=== PATIENT | female | born 1960 | race Caucasian/White ===

== ENCOUNTER → 2017-10-06 17:07 | Outpatient (CLI) | payer BC, SELFPAY ==
--- NOTE | 2017-10-06 13:55 | FLU_PTH ---
PATIENT: NATIVIDAD CONDE LOC: [facility] U#:[id number] AGE/SX: 64/F ROOM: RE10/06/[address]: Dr. Edilia Metzger MD : 1960 BED: DIS: SPEC #: [id number] RECD: 10/06/17 17:04 STATUS: HOANG SUNDAR #: [id number] MERCEDES: 10/06/17 13:[address]: Edilia Metzger DEPT: CYTOLOGY RECD BY: Geoff Pantoja Tissues: A - Thyroid gland, NOS B - Thyroid gland, NOS Procedures: Pap Stain (control) Special Stain Group II Surgery Specimen Level IV Cell Block Cytospin Fluid Cytology Other HEADER OPERATION: Ultrasound-guided fine needle aspiration right thyroid PRE-OP DIAGNOSIS: Thyroid nodules TISSUE SUBMITTED: A - Fine needle aspiration right thyroid nodule fluid for cytology, B ? FNA right thyroid (4?slides) DIAGNOSIS CYTOLOGY A. Fine needle aspiration, right thyroid nodule (cytospin and cell block): Consistent with benign colloid nodule. B. Fine needle aspiration, right thyroid nodule (smears): Adequate for evaluation. Negative, consistent with colloid nodule. AM:veronique 10/11/17 CYTOLOGY STUDY Slides are reviewed. CYTOLOGY GROSS A - Received is 35 ml of cloudy yellow fluid labeled with the patient's name and and designated per the requisition as right thyroid. Submitted for cytology preparation including cell block. B - Received are four smears labeled with the patient's name and designated per the requisition as FNA right thyroid. Submitted for staining. / 10/10/17 TC:5 CPT: 03371, 87910, 46366
== END ==
PROVIDERS: Visit Provider Surgery
DX: E04.1 Nontoxic single thyroid nodule (principal)
CPT/HCPCS: 88108; 88161; 88305; 88313

== ENCOUNTER → 2021-03-05 09:50 | Outpatient (CLI) | payer OTHER, SELFPAY ==
--- NOTE | 2021-03-05 10:02 | NM_ITS ---
CLINICAL: 60-year-old female with history of hypercalcemia. 99m Tc SESTAMIBI DUAL PHASE PLANAR and SPECT PARATHYROID SCINTIGRAPHY COMPARISON: None available FINDINGS: Following the intravenous administration of 25.0 mCi of 99m Tc sestamibi, planar image acquisitions of the anterior neck at 15 minutes and approximately 3 hours post radiopharmaceutical provision and SPECT reconstructions obtained at 3 hours reveal: 1. Immediate static blood pool acquisitions demonstrate uniform distribution of the radiopharmaceutical in the visualized right-left thyroid colloid. 2. Delayed planar images depict symmetric washout of the radiopharmaceutical from the defined right-left thyroid beds without evidence of focal retention of the radiotracer readily identified. Emission computed tomographic reconstructions of the anterior neck reveal confirmation of the planar projection findings. NM/Parathyroid Image w/ SPECT IMPRESSION: 1. NEGATIVE 99m Tc SESTAMIBI PLANAR-SPECT PARATHYROID IMAGING DUAL PHASE EXAMINATION. 2. There is no definitive typical scintigraphic evidence of parathyroid adenoma on the current evaluation. Electronically Signed: Juan Pablo Arnold DO at 12:21 EDT Tel , Service support ,
== END ==
PROVIDERS: PCP Family Medicine
DX: E21.3 Hyperparathyroidism, unspecified (principal)
CPT/HCPCS: 78071; 78072; A9500

== ENCOUNTER 2024-03-06 10:34 | Emergency (ER) | payer BC, SELFPAY ==
[2024-03-06 10:35] VITALS: BP 235/79; PULSE 64; RESP 16; TEMP 36.2; O2SAT 100; BMI 28.3
--- NOTE | 2024-03-06 10:47 | EKG12_ITS ---
Test Reason : PALP Blood Pressure : / mmHG Vent. Rate : 064 BPM Atrial Rate : 064 BPM P-R Int : 180 ms QRS Dur : 090 ms QT Int : 412 ms P-R-T Axes : 057 050 059 degrees QTc Int : 425 ms Normal sinus rhythm Normal ECG Confirmed by NARENDRA SMALL, GERALD ([id number]), order editor ANUSHKA BRANCH ([id number]) on 03/07/2024 9:12:16 AM Referred By: Confirmed By:GERALD MACKEY MD
--- NOTE | 2024-03-06 10:47 | EX.ED.DYSGE1 ---
HPI History of Present Illness Chief Complaint: Dizziness Detail of Chief Complaint: Lightheadedness and hypertension Informant: patient Narrative Narrative: Patient presents to the emergency department complaint of feeling lightheaded. Patient also had some palpitations while at work. Patient states that she was seated at work when she started feeling a little lightheaded and lasted a few seconds and then she felt like maybe her heart was skipping beats. Patient then stood up to get something and again felt lightheaded. They checked her blood pressure at work and it was 230 systolic which is unusual for her. Last time she had a blood pressure check was in the office of her primary care physician about 6 months ago and it was 130s over 70s. Patient does not take blood pressure medications. She denies chest pain or shortness of breath. Denies recent illness. [facility] Medications ?Medication ?Instructions ?Recorded ?Last Taken ?Type cyanocobalamin (vitamin B-12) 1,500 mcg PO DAILY 05/04/17 Unknown History 2,000 mcg tablet loratadine 10 mg tablet (Claritin) 10 mg PO DAILY 05/04/17 Unknown History lorazepam 1 mg tablet (Ativan) 1 mg PO TID PRN anxiety #10 tabs 03/06/24 Unknown Rx Allergy/AdvReac Type Severity Reaction Status Date / Time No Known Allergies Allergy Verified 05/04/17 01:09 Social History Smoking Status: Former smoker ROS ROS ED Review of Systems ROS Unobtainable: other Constitutional Constitutional ED: Reports lethargy; Denies chills, fever(s), sweats or weight loss Eyes Eyes: Denies blurry vision, change in vision or diplopia ENT ENT ED: Denies rhinorrhea or sore throat Cardiovascular Cardiovascular: Reports palpitations; Denies chest pain, orthopnea or racing heartbeat Respiratory/Chest Respiratory/Chest: Denies cough, dyspnea, dyspnea on exertion, orthopnea or sputum Gastrointestinal Gastrointestinal: Denies abdominal pain, diarrhea, nausea or vomiting Genitourinary Genitourinary ED: Denies dysuria, hematuria or urinary frequency Musculoskeletal Musculoskeletal: Denies arthralgias, back pain, myalgias or neck pain Integumentary Denies abscess, Abrasions or rash Neurologic Neurologic: Reports other Details: Dizziness ; Denies headache(s) or weakness Psychiatric Psychiatric: Denies anxiety, depression or suicidal thoughts Endocrine Endocrinology: Denies polydipsia, polyphagia or polyuria Hematologic/Lymphatic Hematologic/Lymphatic: Denies easy bleeding, easy bruising or lymphadenopathy Allergic/Immunologic Allergic/Immunologic ED: Denies mouth swelling, tongue swelling or urticaria EXAM Physical Exam Const Vital Signs: 03/06/24 10:35 03/06/24 11:34 03/06/24 11:53 Temperature 97.2 F L Temperature Source Temporal Pulse Rate 64 78 Pulse Rate [Lying] 56 L Pulse Rate [Sitting (for 1 minute prior to obtaining)] 70 Pulse Rate [Standing (for 1 minute prior to obtaining)] 74 Respiratory Rate 16 20 H Blood Pressure 235/79 H 163/85 H Blood Pressure [Lying] 166/71 H Blood Pressure [Sitting (for 1 minute prior to obtaining)] 180/101 H Blood Pressure [Standing (for 1 minute prior to obtaining)] 199/102 H Blood Pressure Mean 131 111 Blood Pressure Mean [Lying] 102 Blood Pressure Mean [Sitting (for 1 minute prior to obtaining)] 127 Blood Pressure Mean [Standing (for 1 minute prior to obtaining)] 134 Pulse Ox 100 96 Oxygen Delivery Method Room Air Room Air 03/06/24 12:00 03/06/24 13:00 Temperature Temperature Source Pulse Rate 75 65 Pulse Rate [Lying] Pulse Rate [Sitting (for 1 minute prior to obtaining)] Pulse Rate [Standing (for 1 minute prior to obtaining)] Respiratory Rate 16 12 Blood Pressure 199/102 H 157/74 H Blood Pressure [Lying] Blood Pressure [Sitting (for 1 minute prior to obtaining)] Blood Pressure [Standing (for 1 minute prior to obtaining)] Blood Pressure Mean 134 101 Blood Pressure Mean [Lying] Blood Pressure Mean [Sitting (for 1 minute prior to obtaining)] Blood Pressure Mean [Standing (for 1 minute prior to obtaining)] Pulse Ox 96 96 Oxygen Delivery Method Room Air Room Air Positive well nourished and well developed General Appearance ED: well developed and NAD HEENT Reports TM's clear and moist mucous membranes normocephalic and atraumatic; Negative for trauma or tenderness Tympanic Membrane ED: Yes TM's clear Eyes PERRL and EOMs intact bilaterally General Eye ED: Negative for pale conjunctiva or scleral icterus Neck no lymphadenopathy, supple and no JVD General: Negative for tenderness Chest Wall inspection of chest normal and palpation of chest normal Chest: Negative for tenderness Resp normal respiratory effort and clear to auscultation bilaterally Effort and Inspection: Negative for respiratory distress or pain with movement Auscultation: Negative for rhonchi, wheezes or diminished lung sounds Cardio regular rate, regular rhythm, S1 normal heart sound, S2 normal heart sound and no murmurs Peripheral Pulses: pulses 2+ throughout GI normal to inspection, nondistended, normoactive bowel sounds, soft to palpation, non-tender, non-distended and no masses Back/Spine no CVA tenderness and no thoracic nor lumbar tenderness Extremity normal to inspection General Extremety ED: Negative for edema General Extremity: Negative for edema Neuro oriented x3, CN's II-XII intact bilaterally, no sensory deficits noted and gait normal Sensorium / Orientation: awake, alert, oriented to person, oriented to place and oriented to time Motor Exam: strength 5/5 throughout and strength abnormal Psych mental status grossly normal Skin no rashes or lesions noted and no wounds MDM MDM MDM Narrative Medical decision making narrative: Patient presents with some lightheadedness and elevated high blood pressure as well as some palpitations. Clinically she looks well. She is been under increased stress lately. IV line established. EKG obtained on arrival showed a sinus rhythm with rate of 64 bpm with no acute ST segment changes. CBC with differential count of 7.1 with hemoglobin 13.5 and platelet count of 291. Chemistries were unremarkable. Troponin normal at 7. Urinalysis normal. Initially did not give patient any thing for blood pressure to see if she would normalize on her own and she maintained in the 180s to 190s systolic. I did give her a milligram of Ativan and repeated blood pressure now 157/74. She is asymptomatic. Patient does not want to be on blood pressure medicine if she does not have to be. I will write her prescription for as needed Ativan as needed. Also recommended that she maintain a journal of her blood pressures daily and follow-up with her primary care physician within the week. Lab Data Attestation: I reviewed the patient's lab results. Labs: Laboratory Results - last 24 hr 03/06/24 03/06/24 10:53 11:02 WBC 7.1 RBC 4.53 Hgb 13.5 Hct 41.7 MCV 92.1 MCH 29.8 MCHC 32.4 RDW Std Deviation 44.0 H RDW Coeff of Ash 13.1 Plt Count 291 MPV 10.0 Immature Gran % (Auto) 0.300 Neut % (Auto) 66.4 Lymph % (Auto) 24.7 [place] % (Auto) 7.1 Eos % (Auto) 1.1 Baso % (Auto) 0.4 Absolute Neuts (auto) 4.7 Absolute Lymphs (auto) 1.75 Nucleated RBC % 0 Sodium 138 Potassium 3.9 Chloride 108 H Carbon Dioxide 25.0 Anion Gap 4 L BUN 15 Creatinine 0.68 Estim Creat Clear Calc 81.96 Est GFR (MDRD) Af Amer 112 Est GFR (MDRD) Non-Af 92 BUN/Creatinine Ratio 21.9 H Glucose 105 Calcium 8.7 Troponin I High Sens 7 Urine Color Yellow Urine Clarity Sl. Cloudy Urine pH 7.0 Ur Specific [place] 1.010 Urine Protein Negative Urine Glucose (UA) Normal Urine Ketones Negative Urine Occult Blood Negative Urine Nitrite Negative Urine Bilirubin Negative Urine Urobilinogen Normal Ur Leukocyte Esterase Negative Urine RBC 0 SEEN Urine WBC 0 SEEN Ur Squamous Epith Cells 0 SEEN Urine Bacteria 0 SEEN Urine Mucus 0 SEEN EKG Initial EKG: Attestation: I personally reviewed and interpreted this EKG as follows: Comments: Sinus rhythm with ventricular rate of 64 bpm with no acute ST segment changes Discharge Plan Triage Chief Complaint: Dizziness Other Complaint: Palpitations ED Provider: Jamin García Dx/Rx/DC Orders Clinical Impression: Hypertension, Palpitations, Dizziness Instructions: ED Anxiety Reaction, ED Dizziness, Uncertain Cause, ED Hypertension, To Be Confirmed, ED Palpitations Prescriptions: New lorazepam [Ativan] 1 mg tablet 1 mg PO TID PRN (Reason: anxiety) Qty: 10 0RF No Action loratadine [Claritin] 10 MG tablet 10 mg PO DAILY cyanocobalamin (vitamin B-12) 2,000 MCG tablet 1,500 mcg PO DAILY Primary Care Provider: Bryce Hernandez Referrals: Bryce Hernandez MD [Primary Care Provider] - 5-7 Days Print Language: Japanese Disposition Disposition: Home, Self Care
[2024-03-06 11:02] LABS: Absolute Lymphocyte Count 1.75 X10^3/uL (0.83-4.51); Absolute Neutrophil Count 4.7 X10^3/uL (2.0-7.7); Basophil# 0.03 X10^3/uL; Basophil% 0.4 % (0-1); Eosinophil# 0.08 X10^3/uL; Eosinophils% 1.1 % (0-5); Hematocrit 41.7 % (37-47); Hemoglobin 13.5 g/dL (12.0-15.0); Lymphocyte # 1.75 X10^3/ul (0.83-4.51); Lymphocyte % 24.7 % (19-41); Mean Corp Hgb Conc 32.4 g/dL (32-36); Mean Corpuscular Hgb 29.8 pg (27.0-32.0); Mean Corpuscular Volume 92.1 fL (81-99); Monocyte% 7.1 % (0-10); NRBC Flagged by Analyzer 0 % (0-5); Neutrophil % 66.4 % (47-70); Platelet Count 291 K/mm3 (150-450); RBC Distribution Width CV 13.1 % (11.6-14.6); Red Blood Count 4.53 M/mm3 (4.2-5.4); White Blood Count 7.1 K/mm3 (4.4-11.0)
[2024-03-06 11:06] LABS: Bacteria 0 SEEN /hpf (None Seen); Mucous, Urine 0 SEEN /hpf (<or=2+); Red Blood Cells-Urine 0 SEEN /hpf (0-5); Squamous Epithelial Cells - UA 0 SEEN /hpf (5-10); White Blood Cells 0 SEEN /hpf (0-5)
[2024-03-06 11:16] LABS: Color, Urine Yellow (Yellow); Glucose, Dipstick Normal (Normal); Ketone-Dipstick Negative (Negative); Leukocyte Esterase-Dipstick Negative /ul (Negative); Nitrite-Dipstick Negative (Negative); Occult Blood-Urine Negative /ul (Negative); Protein-Dipstick Negative (Negative); Urine Bilirubin Dipstick Negative (Negative); Urine Clarity Sl. Cloudy (Clear); Urine Urobilinogen Normal (Normal)
[2024-03-06 11:30] LABS: Anion Gap 4 (5-15); BUN 15 mg/dL (7-18); BUN/Creat Ratio 21.9 RATIO (10-20); Calcium,Total 8.7 mg/dL (8.5-10.1); Chloride 108 mmol/L (98-107); Creatinine, Serum 0.68 mg/dL (0.55-1.02); EST Glomerular Filtration Rate 92 mL/min (>60); Est Glom Filt Rate - Afr Amer 112 mL/min (>60); Estimated Creatinine Clearance 81.96 ml/min; Glucose 105 mg/dL (74-106); Potassium 3.9 mmol/L (3.5-5.1); Sodium Level 138 mmol/L (136-145); Troponin-I HS 7 pg/mL (3.0-54.0)
[2024-03-06 11:34] VITALS: BP 163/85; PULSE 78; RESP 20; O2SAT 96
[2024-03-06 11:53] VITALS: BP 166/71; BP 180/101; BP 199/102; PULSE 56; PULSE 70; PULSE 74
[2024-03-06 12:00] VITALS: BP 199/102; PULSE 75; RESP 16; O2SAT 96
[2024-03-06] MEDS: LORazepam 2 MG/ML Syringe 1 MG IV (12:49)
[2024-03-06 13:00] VITALS: BP 157/74; PULSE 65; RESP 12; O2SAT 96
[2024-03-06 13:44] VITALS: BP 154/96; PULSE 56; RESP 17; TEMP 36.9; O2SAT 97
== END 2024-03-06 13:47 | disposition home or self-care (01) ==
PROVIDERS: Emergency Provider Emergency Medicine; PCP Family Medicine; Visit Provider Emergency Medicine
DX: I10 Essential (primary) hypertension (principal); R42 Dizziness and giddiness; Z87.891 Personal history of nicotine dependence; R00.2 Palpitations; Z79.899 Other long term (current) drug therapy
CPT/HCPCS: 80048; 81001; 84484; 85025; 93005; 99285; A4216

== ENCOUNTER 2024-06-26 09:26 | Emergency (ER) | payer BC, SELFPAY ==
[2024-06-26 09:27] VITALS: BP 180/86; PULSE 87; RESP 16; TEMP 36.8; O2SAT 99; BMI 27.1
--- NOTE | 2024-06-26 10:10 | RAD_ITS ---
PROCEDURE: SHOULDER MIN 2 VIEWS REASON FOR EXAM: Pain. TECHNIQUE: Four view right shoulder series COMPARISON: Prior lower cervical surgery is partially visualized at the edge of imaging. [id number] degenerative changes of the visualized spine are seen. Moderate right acromioclavicular joint degenerative changes are noted. The right glenohumeral joint demonstrates minimal degenerative changes, without apparent joint narrowing. No acute fracture or dislocation is seen. Reading Location: [id number]
--- NOTE | 2024-06-26 10:10 | CT_ITS ---
PROCEDURE: SPINE CERVICAL WITHOUT CONTRAS REASON FOR EXAM: Right shoulder pain. Prior cervical fusion. TECHNIQUE: Cervical spine CT without contrast. COMPARISON: None. FINDINGS: Alignment: Straightening of the normal cervical lordosis. Vertebrae: No acute fracture Soft Tissues: Unremarkable C1-2: Normal alignment. Dens appears intact. C2-3: Unremarkable C3-4: Marked degree of disc space narrowing and spondylosis. Uncovertebral arthrosis worse on the right side with bilateral neural foraminal stenosis more prominent on the right side. C4-5: The patient is status post anterior fusion with screw and plate fixation device. There is evidence of disc space narrowing. Right neural foraminal stenosis due to uncovertebral arthrosis. C5-6: Status post anterior fusion with plate and screw fixation device. Moderate degree of right neural foraminal stenosis due to uncovertebral arthrosis. C6-7: Marked degree of disc space narrowing. Spondylosis. C7-T1: Unremarkable CT/Spine Cervical without Contras IMPRESSION: NO ACUTE CERVICAL FRACTURE. Multilevel degenerative changes as described. Prior anterior fusion at the C4-C5, C5-C6 levels. One or more dose reduction techniques were used (e.g., Automated exposure contr ol, adjustment of the mA and/or kV according to patient size, use of iterative reconstruction technique). Reading Location: [facility]
--- NOTE | 2024-06-26 10:13 | EX.ED.UPPERE ---
HPI History of Present Illness Chief Complaint: Upper Extremity Injury Narrative Narrative: 64-year-old female past medical history of previous cervical radiculopathy with plate and screws [place] neck [place] [address] Garry Trivedi, presents with a few weeks worth of right neck and right shoulder pain. She denies any fevers or chills, no recent trauma. She states this feels like her prior radicular pain, but she has not had problems since her surgery. She presents with pain from her right neck radiating into her right shoulder for the last few weeks. She has an appointment with her primary care provider on the , approximately 2 weeks from now, but she states that the pain is becoming more intense. She is experiencing numbness as well of her right shoulder. PFSH PFSH Home Medications ?Medication ?Instructions ?Recorded ?Last Taken ?Type cyanocobalamin (vitamin B-12) 1,500 mcg PO DAILY 05/04/17 Unknown History 2,000 mcg tablet loratadine 10 mg tablet (Claritin) 10 mg PO DAILY 05/04/17 Unknown History lorazepam 1 mg tablet (Ativan) 1 mg PO TID PRN anxiety #10 tabs 03/06/24 Unknown Rx oxycodone-acetaminophen 5 mg-325 1 tab PO Q6H PRN pain 3 days #12 06/26/24 Unknown Rx mg tablet (Percocet) tabs Allergy/AdvReac Type Severity Reaction Status Date / Time No Known Allergies Allergy Verified 05/04/17 01:09 Social History Smoking Status: Unknown if ever smoked ROS ROS ED ROS Narrative Review of systems positive for right neck and right shoulder pain and numbness. No fevers or chills, no nausea or vomiting, no recent trauma. No chest pain or shortness of breath. EXAM Physical Exam Narrative Exam Narrative: Afebrile. Vital signs noted. Nontoxic-appearing. Cardiovascular examination reveals a regular rate and rhythm. Lungs clear to auscultation bilaterally. Abdomen soft nontender with normoactive bowel sounds. No vertebral point tenderness or bony step-off of the cervical spine. Diffuse tenderness to palpation right shoulder. No crepitance. Able to raise arm from side. Const Vital Signs: 06/26/24 09:27 Temperature 98.3 F Temperature Source Temporal Pulse Rate 87 Respiratory Rate 16 Blood Pressure 180/86 H Blood Pressure Mean 117 Pulse Ox 99 Oxygen Delivery Method Room Air MDM MDM MDM Narrative Medical decision making narrative: Differential diagnosis includes but not limited to shoulder arthralgia versus fracture. I have low clinical suspicion for dislocation. Additionally, I think she may have more of a cervical radiculopathy although she has had fusion surgery from continued DJD of the cervical spine versus spinal stenosis. I have low suspicion clinically for fracture as she has had no trauma. Right shoulder x-ray interpreted by myself independently shows no evidence of dislocation or fracture. I reviewed the radiology report which confirms my independent interpretation. Additionally they obtained CT of the cervical spine and reviewed the radiology report. While there is no evidence of acute fracture, she does have postsurgical changes as well as continued DJD and disc space narrowing and spinal stenosis. At this point in time, she did not drive here so she was given 1 oxycodone tablet here and prescription written for Percocet 5 mg - 325 mg #12 for 3 days. She is to follow-up with her primary care provider, and she needs to follow-up with her orthopedic spine surgeon in [place], [place], Dr. Garry Trivedi. Disposition is discharged home in stable condition History & Record Review Discussion w/independent historian: Patient Discharge Plan Triage Chief Complaint: Upper Extremity Injury ED Provider: Omar Rapp Dx/Rx/DC Orders Clinical Impression: Cervical radiculopathy, Degenerative cervical spinal stenosis Instructions: ED Neck Pain Prescriptions: New oxycodone-acetaminophen [Percocet] 5-325 mg tablet 1 tab PO Q6H PRN (Reason: pain) 3 Days Qty: 12 0RF No Action loratadine [Claritin] 10 MG tablet 10 mg PO DAILY cyanocobalamin (vitamin B-12) 2,000 MCG tablet 1,500 mcg PO DAILY lorazepam [Ativan] 1 mg tablet 1 mg PO TID PRN (Reason: anxiety) Qty: 10 0RF Primary Care Provider: Bryce Hernandez Referrals: Bryce Hernandez MD [Primary Care Provider] - As soon as possible Activity Restrictions/Additional Instructions: Follow-up with your orthopedic surgeon, Dr. Garry Trivedi as soon as possible. Print Language: Lithuanian Disposition Disposition: Home, Self Care
[2024-06-26] MEDS: oxyCODONE 5 MG Tablet PO (11:49)
== END 2024-06-26 12:05 | disposition home or self-care (01) ==
PROVIDERS: Emergency Provider Emergency Medicine; PCP Family Medicine; Visit Provider Emergency Medicine
DX: M47.22 Other spondylosis with radiculopathy, cervical region (principal); M48.02 Spinal stenosis, cervical region
CPT/HCPCS: 72125; 73030; 99282

== ENCOUNTER 2025-02-05 08:14 | Emergency (ER) | payer BC, SELFPAY ==
[2025-02-05 08:17] VITALS: BP 171/83; PULSE 65; RESP 17; TEMP 36; O2SAT 98; BMI 28.0
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
[2025-02-05] MEDS: 0.9% Normal Saline (1000mL) 1,000 ML 999 ML IV (09:14)
[2025-02-05 09:15] LABS: Hematocrit 41.0 % (37-47); Hemoglobin 13.5 g/dL (12.0-15.0); Immature Granulocytes Count 0.030 X10^3/uL (0.0-0.0); Mean Corp Hgb Conc 32.9 g/dL (32-36); Mean Corpuscular Volume 92.6 fL (81-99); Mean Platelet Vol. 9.7 fl (6.2-12.0); NRBC Flagged by Analyzer 0 % (0-5); Platelet Count 292 K/mm3 (150-450); RBC Distribution Width CV 13.2 % (11.6-14.6); RBC Distribution Width SD 44.6 fl (35.1-43.9); Red Blood Count 4.43 M/mm3 (4.2-5.4); White Blood Count 5.8 K/mm3 (4.4-11.0)
--- NOTE | 2025-02-05 09:25 | CT_ITS ---
PROCEDURE: BRAIN/HEAD WITHOUT CONTRAST 02/05/2025 REASON FOR EXAM: TRAUMA TECHNIQUE: Procedure Code: CTBR Modality: CT Procedure: BRAIN/HEAD WITHOUT CONTRAST Coronal and Sagittal reconstruction series were provided. One or more dose reduction techniques were used (e.g., Automated exposure control, adjustment of the mA and/or kV according to patient size, use of iterative reconstruction technique. RADIATION DOSE SUMMARY: CTDlvol: 17.81 mGy DLP: 1209.28 mGycm COMPARISON: None. FINDINGS: Brain: Extensive low density in the deep cerebral white matter most likely represents advanced chronic small vessel ischemic disease. No acute territorial infarction. No intracranial hemorrhage. No mass-effect or midline shift. The craniocervical junction is unremarkable. The orbits are unremarkable. CSF Spaces: Mild generalized cerebral atrophy Sinuses/Mastoids: Clear at visualized levels Bones: No acute bony abnormalities. CT/Brain/Head without Contrast IMPRESSION: No acute intracranial abnormalities. Reading Location: [id number]
--- OUTSIDE RECORDS SUMMARY | 2025-02-05 09:25 | XMS RPT_ITS | CCD ---
Author Organization [facility] Care Team Providers Care Stunner Name Role Phone Tia Hernandez MD Primary Care Provider Tia Hernandez MD Primary Care Provider [place] BUSINESS SEGMENT MANAGER.Corina ESCOTO Unavailable Irvin BUSINESS SEGMENT MANAGER.Will ESCOTO Unavailable Mary, Tia Primary Care Unavailable Omar Rapp Attending Unavailable Elderbrock, Tia Primary Care Unavailable Jamin García Attending Unavailable [place] BUSINESS SEGMENT MANAGER.Corina ESCOTO Unavailable ELDERBROCK, TIA Referring Unavailable ELDERBROCK, TIA Primary Care Unavailable ELDERBROCK, TIA Referring Unavailable ELDERBROCK, TIA Primary Care Unavailable ELDERBROCK, TIA Referring Unavailable ELDERBROCK, TIA Primary Care Unavailable ELDERBROCK, TIA Referring Unavailable ELDERBROCK, TIA Primary Care Unavailable CHECO HALL Attending Unavailable ELDERBROCK, TIA Primary Care Unavailable RICARDO LUNA Attending Unavailable ELDERBROCK, TIA Primary Care Unavailable MAYBROCK, TIA Attending Unavailable MAYBROCK, TIA Primary Care Unavailable RICARDO LUNA Referring Unavailable ELDERBROCK, TIA Attending Unavailable ELDERBROCK, TIA Primary Care Unavailable Allergies Allergy Classification Reported Allergen(s) Allergy Type Date of Onset Reaction(s) Facility levothyroxine (1 source) levothyroxine Drug Allergy 8 Other: See Comments [facility] (20 sources) levothyroxine; Translations: [LEVOTHYROXINE] Drug Allergy 8 Other: See Comments [facility] Medications Current Medications Medication Drug Class(es) Dates Sig (Normalized) Sig (Original) calcium carbonate 1250 mg / cholecalciferol 200 unt oral tablet (20 sources) Vitamin D Start: 09-13-2021 End: 10-13-2021 take 1 tablet by mouth once daily vmjlygm-iglisamao-ovfoue n D3 500 mg-5 mcg (200 unit) per tablet Indications: Primary hyperparathyroidism (HCC) Take 1 tablet by mouth once daily. 30 tablet 5 09/13/2021 Active Start: 08-03-2021 End: 09-13-2021 take 1 tablet by mouth three times daily zecpcqi-sckpdwdft-jajppdx D3 500 mg-5 mc g (200 unit) per tablet Take 1 tablet by mouth three times daily. 60 tablet 0 08/03/2021 09/13/2021 Discontinued Comment on above: Take 1 tablet by fatuma th once daily. Take 1 tablet by fatuma th three times daily. iv contrast (will be provided with radiology test) (1 source) Start: 2022 End: 2022 inject 1 dose intravenously once, then inject 1 dose intravenously once iv contrast (will be provided with radiology test) Indications: Localized swelling, mass and lump, neck Inject 1 Each intravenously one time only for [address] Neck W IVCON No IV access, insert saline lock prior to the sedation, infusion, injection for imaging exam. Discontinue saline lock post exam. If Pt. has a central line or IVAD, may access for administration according to line specific nursing protocol. Once exam is complete flush line and de-access according to line specific nursing protocol in the CT contrast administration guidelines link. 1 Each 0 12/23/2022 12/23/2022 Active Comment on above: Inject 1 Each intrav enously one time only for [address] Neck W IVCON No IV access, insert saline lock prior to the sedation, infusion, injection for imaging exam. Discontinue saline lock post exam. If Pt. has a central line or IVAD, may access for administration according to line specific nursing protocol. Once exam is complete flush line and de-access according to line specific nursing protocol in the CT contrast administration guidelines link. levothyroxine sodium 0.075 mg oral tablet (20 sources) l-Thyroxine Start: 2023 End: 2024 take 1 tablet by mouth once daily for thyroid dysfunction levothyroxine (SYNTHROID) 75 mcg tablet Indications: Hypothyroidism, acquired Take 1 tablet by mouth once daily. Take on empty stomach. For Thyroid 30 tablet 11 07/08/2024 Active Start: 01-10-2023 take 1 tablet by fatuma th once daily for thyroid dysfunction levothyroxine (SYNTHROID) 75 mcg tablet Indications: Hypothyroidism, acquired Take 1 tablet by mouth once daily. Take on empty stomach. For Thyroid 30 tablet 5 01/10/2023 Active Comment on above: Take 1 tablet by fatuma th once daily. Take on empty stomach. For Thyroid lisinopril 10 mg oral tablet (10 sources) Angiotensin Converting Enzyme Inhibitor Start: End: take 1 tablet by mouth once daily lisinopril (ZESTRIL) 10 mg tablet Take 1 tablet by mouth once daily. 30 tablet 5 01/15/2025 Active 24 hr loratadine 10 mg / pseudoephedrine sulfate 240 mg extended release oral tablet (20 sources) alpha-Adrenergic Agonist Start: End: take 1 tablet by mouth once daily loratadine-pseudoephed rine ER (CLARITIN-D 24) 10-240 mg Tb24 Indications: Allergy, initial encounter Take 1 tablet by mouth once daily. 30 tablet 01/08/2024 Active Comment on above: Take 1 tablet by fatuma th once daily. omeprazole 20 mg delayed release oral capsule (20 sources) Proton Pump Inhibitor Start: take 2 capsules by mouth once daily before breakfast omeprazole (PRILOSEC) 20 mg capsule Indications: Gastroesophageal reflux disease without esophagitis Take 2 capsules by mouth daily before breakfast. 1/2 hr before meal. 60 capsule 2 01/15/2025 Active Start: 10-28-2020 End: 01-15-2025 take 1 capsule by mouth once daily before breakfast omeprazole (PRILOSEC) 20 mg capsule Indications: Gastroesophageal reflux disease without esophagitis Take 1 capsule by mouth daily before breakfast. 1/2 hr before meal. 30 capsule 11/15/2023 01/15/2025 Discontinued Comment on above: Take 1 capsule by mo uth daily before breakfast. 1/2 hr before meal. vitamin b12 2 mg extended release oral tablet (20 sources) Vitamin B12 Start: take 1 tablet by mouth once daily Cyanocobalamin (VITAMIN B-12) 2,000 mcg TbER Indications: Osteopenia Take 1 tablet by mouth once daily. 0 02/19/2016 Active Comment on above: Take 1 tablet by fatuma th once daily. Completed/Discontinued Medications Medication Drug Class(es) Dates Sig (Normalized) Sig (Original) acetaminophen 500 mg oral tablet (9 sources) Start: 08-03-2021 End: 03-11-2022 take 1 tablet by mouth every four hours as needed acetaminophen (TYLENOL) 500 mg tablet Take 1 tablet by mouth every 4 hours as needed for pain. 0 08/03/2021 03/11/2022 Discontinued Comment on above: Take 1 tablet by fatuma th every 4 hours as needed for pain. loratadine 10 mg oral tablet (1 source) End: 09-13-2021 take 10 mg by mouth once daily LORATADINE ORAL Take 10 mg by mouth once daily. 0 09/13/2021 Discontinued Comment on above: Take 10 mg by mouth once daily. triamcinolone acetonide 0.25 mg/ml topical cream (3 sources) Corticosteroid Start: 10-03-2021 End: 11-30-2021 triamcinolone (KENALOG) 0.025 % cream Indications: Dermatitis due to plants, including poison malinda, sumac, and oak Apply 1 application to affected area twice daily. 30 g 0 10/03/2021 11/30/2021 Discontinued Comment on above: Apply 1 application to affected area twice daily. Problems Active Problems Problem Classification Problem Date Documented Date Episodic/Chronic Complications of surgical procedures or medical care (2 sources) History of parathyroidectomy; Translations: [Postprocedural hypoparathyroidism] 01-09-2023 Chronic Esophageal disorders (20 sources) Gastroesophageal reflux disease without esophagitis; Translations: [Gastro-esophageal reflux disease without esophagitis] Onset: 07-21-2021 Chronic Essential hypertension (3 sources) Hypertensive disorder; Translations: [Essential (primary) hypertension] Onset: 03-18-2024 03-18-2024 Chronic Malaise and fatigue (1 source) Fatigue; Translations: [Other fatigue] 01-09-2023 Episodic Nutritional deficiencies (1 source) Vitamin D deficiency; Translations: [Vitamin D deficiency, unspecified] Chronic Osteoarthritis (4 sources) Osteoarthritis of joint of right wrist; Translations: [Primary osteoarthritis, right wrist] Onset: 09-09-2024 09-09-2024 Chronic Osteoporosis (20 sources) Osteoporosis; Translations: [Localized osteoporosis [[place]]] Onset: 02-16-2021 02-16-2021 Chronic Other bone disease and musculoskeletal deformities (4 sources) Progressive avascular necrosis of lunate; 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] 07-12-2024 Chronic Other bone disease and musculoskeletal deformities (3 sources) Avascular necrosis of bone; Translations: [Osteonecrosis, unspecified] 07-12-2024 Chronic Other bone disease and musculoskeletal deformities (1 source) Kienbock's disease of adults; Translations: [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] Onset: 07-23-2024 Chronic Other bone disease and musculoskeletal deformities (1 source) Osteonecrosis, unspecified; Translations: [Osteonecrosis (HCC)] Onset: 07-23-2024 Chronic Other circulatory disease (1 source) Elevated blood-pressure reading without diagnosis of hypertension; Translations: [Elevated blood-pressure reading, without diagnosis of hypertension] 07-11-2024 Episodic Other connective tissue disease (1 source) Cramp; Translations: [Cramp and spasm] Episodic Other connective tissue disease (1 source) Cramp in lower limb; Translations: [Cramp and spasm] Episodic Other connective tissue disease (1 source) Pain of right thigh; Translations: [Pain in right thigh] 06-09-2023 Episodic Other endocrine disorders (20 sources) Primary hyperparathyroidism; Translations: [Primary hyperparathyroidism] Onset: 07-21-2021 Chronic Other endocrine disorders (1 source) Hyperparathyroidism; Translations: [Hyperparathyroidism, unspecified] Chronic Other non-traumatic joint disorders (1 source) Pain in right hip joint; Translations: [Pain in right hip] 06-09-2023 Episodic Other non-traumatic joint disorders (5 sources) Pain of right wrist; Translations: [Pain in right wrist] 07-11-2024 Episodic Other nutritional; endocrine; and metabolic disorders (1 source) Weight gain; Translations: [Abnormal weight gain] 01-09-2023 Episodic Other skin disorders (5 sources) Finding of neck region; Translations: [Localized swelling, mass and lump, neck] 12-12-2022 Episodic Screening and history of mental health and substance abuse codes (20 sources) Tobacco use and exposure - finding; Translations: [Personal history of nicotine dependence] 04-09-2012 Episodic Spondylosis; intervertebral disc disorders; other back problems (20 sources) Cervical disc disorder; Translations: [Cervical disc disorder, unspecified, unspecified cervical region] 04-09-2012 Chronic Spondylosis; intervertebral disc disorders; other back problems (4 sources) Neck pain; Translations: [Cervicalgia] Onset: 07-09-2024 01-09-2023 Episodic Thyroid disorders (20 sources) Multinodular goiter; Translations: [Nontoxic multinodular goiter] Onset: 03-18-2024 05-10-2021 Chronic Past or Other Problems Problem Classification Problem Date Documented Da te Episodic/Chronic Allergic reactions (20 sources) Allergic condition; Translations: [Allergy, unspecified, initial encounter] Onset: 10-28-2020 Episodic Biliary tract disease (20 sources) Polyp of gallbladder; Translations: [Cholesterolosis of gallbladder] Onset: 10-03-2018 10-03-2018 Episodic Cardiac dysrhythmias (2 sources) Palpitations; Translations: [Palpitations] Onset: 03-18-2024 03-18-2024 Episodic Conditions associated with dizziness or vertigo (1 source) Dizziness and giddiness; Translations: [Dizziness and giddiness] Onset: 03-28-2024 Episodic Fracture of upper limb (20 sources) Fracture of base of fifth metacarpal; Translations: [Nondisplaced fracture of base of fifth metacarpal bone, right hand, subsequent encounter for fracture with routine healing] Onset: 07-21-2016 07-21-2016 Episodic Other bone disease and musculoskeletal deformities (18 sources) Osteopenia; Translations: [Other specified disorders of bone density and structure, unspecified site] Resolved: 02-16-2021 02-16-2021 Episodic Other circulatory disease (1 source) Elevated blood-pressure reading, without diagnosis of hypertension; Translations: [Elevated BP without diagnosis of hypertension] Onset: 07-11-2024 Episodic Other non-traumatic joint disorders (1 source) Pain in right wrist; Translations: [Right wrist pain] Onset: 07-11-2024 Episodic Other nutritional; endocrine; and metabolic disorders (18 sources) Obesity caused by energy imbalance; Translations: [Other obesity due to excess calories] Onset: 10-03-2018 Resolved: 07-21-2021 07-21-2021 Chronic Other screening for suspected conditions (not mental disorders or infectious disease) (20 sources) Mammography abnormal; Translations: [Other abnormal and inconclusive findings on diagnostic imaging of breast] Onset: 05-22-2012 05-22-2012 Episodic Unclassified (1 source) Patient encounter status 07-02-2024 Results Test Name Value Interpretation Reference Range Facility [facility] NATIVIDAD CONDE ([id number]) 1960 F Date Time Provider Department 10/22/24 [facility] HER[facility]DEZ [facility] During your visit today, we recorded the following information about you: Lorie Koehler MA 10/22/2024 12:53 PM Signed Office received FMLA forms from [email or web address] on pt. Pt has FMLA to care for her spouse Michael Conde. Once completed fax back to: [email or web address] ATTN: Lula Barrera [employer] KARISHMA Barba Mark D, MD 10/24/2024 4:46 PM Signed Forms done MD Rodo Moser Kathryn, MA 10/24/2024 4:56 PM Signed Forms completed and faxed Lorie Koehler MA Allergies As of Date: 10/22/2024 Noted Allergy Reaction LEVOTHYROXINE 09/18/2017 14 - Other: See Comments Comments: Bloating and Vuong Date Reviewed: 09/09/2024 Reviewed by: Checo Hall MD - Fully Assessed Reason for Visit: FMLA Paperwork [4600] Prescriptions as of 10/24/2024 - lisinopril (ZESTRIL) 10 mg tablet Take 1 tablet by mouth once daily. - levothyroxine (SYNTHROID) 75 mcg tablet Take 1 tablet by mouth once daily. Take on empty stomach. For Thyroid - loratadine-pseudoephedr ine ER (CLARITIN-D 24) 10-240 mg Tb24 Take 1 tablet by mouth once daily. - omeprazole (PRILOSEC) 20 mg capsule Take 1 capsule by mouth daily before breakfast. 1/2 hr before meal. - vdlsghl-cmxjjzsjc-arlul in D3 500 mg-5 mcg (200 unit) per tablet Take 1 tablet by mouth once daily. - Cyanocobalamin (VITAMIN B-12) 2,000 mcg TbER Take 1 tablet by mouth once daily. Meds Comments as of 03/11/2022: Nicholas prn Problem List As Of Date 10/22/2024 Noted Resolved History of smoking [Z87.891] Cervical disc disease [M50.90] Abnormal mammogram, unspecified [R92.8] 05/22/2012 Multinodular goiter [E04.2] Osteopenia [M85.80] 02/16/2021 Nondisplaced fracture of base of fifth metacarp*07/21/2016 Gallbladder polyp [K82.4] 10/03/2018 Class 1 obesity due to excess calories without *10/03/2018 07/21/2021 Allergies [T78.40XA] 10/28/2020 Localized osteoporosis without current patholog*02/16/2021 GERD (gastroesophageal reflux disease) [K21.9] 07/21/2021 Primary hyperparathyroidism (HCC) [E21.0] 07/21/2021 Hypothyroidism [E03.9] 03/18/2024 Encounter Status:Closed by LORIE KOELHER on 10/24/24 [facility] Aaron 09-09-2024 CNOV Office Visit (RADHA ) NATIVIDAD CONDE ([id number]) 1960 F Date Time Provider Department 09/09/24 9:15 AM CHECO HALL During your visit today, we recorded the following information about you: Blood pressure 138/76 Checo Hall MD 09/09/2024 2:07 PM Signed Checo Hall MD Department of Orthopaedics Orthopaedics [address] [facility] [address] Dept: [phone] Dept September 09, 2024 CHIEF COMPLAINT: New and Pain of the Right Wrist HPI Natividad is a 64-year-old female presenting with right wrist pain and swelling. Natividad reports that approximately 2 months ago, she experienced a popping sensation in her right wrist while performing repetitive tasks at work. This was followed by significant pain and swelling. She was provided with a brace by the workplace nurse, but it exacerbated the swelling, leading her to discontinue its use. She has a history of carpal tunnel surgery on the same wrist performed in the . She was evaluated by her primary care physician, Dr. Hernandez, on 08/08, who ordered an MRI in July. Natividad was informed that the MRI revealed a torn ligament and other unspecified issues. Since the initial injury, she reports persistent pain localized to the center and back of the wrist, as well as the inside. The pain intensifies by the end of the day, despite the use of aspirin and topical lidocaine for relief. She denies any recent trauma to the wrist. She also has a history of cervical fusion and inquires about the potential impact of arthritis in her shoulder on her wrist pain. She is currently on lisinopril for hypertension and denies any renal issues, diabetes, or blood glucose problems. She occasionally takes Aleve for pain management. 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 Limited range of motion in the right wrist compared to the left, with pain localized to the radial carpal joint. No evidence of acute injury or tendon damage. - Initiate topical Voltaren gel, apply up to four times daily to the affected area. - Provided a comfortable Velcro wrist brace to reduce load during activities. - Consider oral NSAIDs such as meloxicam or Lodeen if topical treatment is insufficient; monitor blood pressure due to potential side effects. - Discussed potential for corticosteroid injection if pain persists despite conservative measures. Will continue to monitor patient for Primary osteoarthritis of right wrist (primary encounter diagnosis) Slac (scapholunate advanced collapse) of wrist, right, patient to schedule visit as per follow up discussed. FOLLOW UP INSTRUCTIONS: As needed OBJECTIVE: Ms. Natividad Conde is a pleasant 64 year old in no apparent distress. Gen:BP 138/76 LMP 07/27/2009 nl development, non obese, no deformities ENT: Normocephalic, normal hearing, moist mucosa CV: Pulses:Radial= 2+ and symmetric, capillary refill < 2 secs, no peripheral edema/varicosities Skin: no rash, bruising or lesions. Good turgor. Psych: cooperative and appropriate, alert and oriented x 3, good mood and affect. Musculoskeletal: - Musculoskeletal: - Right Wrist: Limited extension to approximately 60 degrees; tenderness noted. Left wrist, 85 degrees of extension. Painful Bernabe's exam, no clunk. TTP at the central, dorsal RC joint. Mild tenderness with some min. Swelling over the ulnar fossa. Mild swelling, without too much pain at the thumb, CMC joint. Minimal crepitus and mild pain with Grind. NV exam intact. Previous carpal tunnel scar noted without complication. IMAGING: Labs - Basic labs: Normal renal function and no evidence of abnormal glucose levels Imaging - (July) MRI of the right wrist: - Torn scapholunate ligament - Degenerative changes in the triangular fibrocartilage - Mild to moderate arthritic changes - X-ray of the right wrist: - Arthritic changes with narrowed joint spaces and subchondral sclerosis - Evidence of chronic scapholunate ligament tear Supporting Subjective Information Below: Past Medical History: PAST MEDICAL HISTORY Diagnosis Date Arthritis in left hand Cervical disc disease History of smoking Multinodular goiter 04/14/2013 thyroiditis 04/2013 Osteopenia 05/15/2011 Past Surgical History: PAST SURGICAL HISTORY Procedure Laterality Date BIOPSY BREAST OPEN INCISIONAL 07/05/2012 left, Fibroadenoma BX BREAST PERC NEED W/GUID 05/31/2012 U/S needle core UOQ left breast, fibroadenoma and Phyllodes (more content not included)... Normal [facility]OVon 08-16-2024 CNOV Office Visit (FAMPWS ) NATIVIDAD CONDE ([id number]) 1960 F Date Time Provider Department 08/16/24 4:20 PM TIA HERNANDEZ [facility]AMPWS During your visit today, we recorded the following information about you: Pulse Respiration Blood pressure Weight 64/minute 16/minute 136/70 71.5 kg Tia Hernandez MD 08/16/2024 5:20 PM Signed Chief Complaint Patient presents with: F/U 1 month HPI Natividad Conde is a 64 year old female who presents here today for a 1 month follow up. Pt here today for a BP check. Had stomach bug last week. HTN - At previous visit pt was started on Lisinopril 10 mg once daily due to elevated BP. Pt has had multiple elevated readings over the past several years. No hx of being on medication in the past. Checks BP at work through the Nurse, last week 146/64. Denies any chest pain, sob, or dizziness. Started taking Vitamin D3 twice a week. Asking about results from CT scan and XR from [facility] ED visit. Wants to review those today. Past medical history, appointments, medications, allergies reviewed. 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 Cervical disc disease History of smoking Multinodular goiter 04/14/2013 thyroiditis 04/2013 Osteopenia 05/15/2011 Previous Surgical History PAST SURGICAL HISTORY Procedure Laterality Date BIOPSY BREAST OPEN INCISIONAL 07/05/2012 left, Fibroadenoma BX BREAST PERC NEED W/GUID 05/31/2012 U/S needle core UOQ left breast, fibroadenoma and Phyllodes tumor CERV SPINE FUSN,ANTER,BELOW C2 1996 DELIVERY ONLY X 2 , low transverse LAPAROSCOPY SURG CHOLECYSTECTOMY 10/15/2018 Cholecystectomy, lap NEUROPLASTY AND/TRANSPOS MEDIAN NRV CARPAL TUNNE Carpal tunnel decomp Right hand PAST SURGICAL HISTORY OF N/A 08/03/2021 Parathyroid removed TONSILLECTOMY PRIMARY/SECONDARY Tonsillectomy Family History FAMILY HISTORY Problem Relation Age of Onset Diabetes Mother Hypertension Mother DVT Mother Hypertension Father Alcohol/Drug Father alcohol No Known Problems Sister No Known Problems Brother No Known Problems Brother No Known Problems Brother Heart Maternal Grandmother hardening of the arteries Osteoporosis Maternal Grandmother shrunk with age Ischemic Heart Disease Maternal Grandfather 63 NM Hypertension Maternal Aunt Diabetes Maternal Aunt Coronary Artery Disease No Family History Thyroid No Family History Blood Disease No Family History Blood Clots No Family History Factor 5 Leiden No Family History Stroke No Family History Systemic Lupus Erythematosus No Family History Multiple Sclerosis No Family History Bipolar disorder No Family History Schizophrenia No Family History Alzheimer's Disease No Family History Dementia No Family History Parkinson?s Disease No Family History Aneurysm No Family History COPD No Family History Hyperlipidemia No Family History Patient Allergies ALLERGIES Allergen Reactions Levothyroxine Other: See Comments Bloating and Vuong Current Medications Current Outpatient Medications on File Prior to Visit Medication Sig lisinopril (ZESTRIL) 10 mg tablet Take 1 tablet by mouth once daily. levothyroxine (SYNTHROID) 75 mcg tablet Take 1 tablet by mouth once daily. Take on empty stomach. For Thyroid loratadine-pseudoephedr ine ER (CLARITIN-D 24) 10-240 mg Tb24 Take 1 tablet by mouth once daily. omeprazole (PRILOSEC) 20 mg capsule Take 1 capsule by mouth daily before breakfast. 1/2 hr before meal. xwmdayf-usezkuynm-velfi in D3 500 mg-5 mcg (200 unit) per tablet Take 1 tablet by mouth once daily. (Patient taking differently: Take 1 tablet by mouth as needed.) Cyanocobalamin (VITAMIN B-12) 2,000 mcg TbER Take 1 tablet by mouth once daily. No current facility-administered medications on file prior to visit. Social History Social History Tobacco Use Smoking status: Former Current packs/day: 0.00 Average packs/day: 0.7 packs/day for 20.0 years (14.0 ttl pk-yrs) Types: Cigarettes Start date: 1984 Quit date: 2004 Years since quittin.2 Smokeless tobacco: Never Vaping Use Vaping status: Never Used Substance Use Topics Alcohol use: Yes Comment: 6 beers on Monday during football Drug use: No EXAM: BP 136/70 Pulse 64 Resp 16 Wt 71.5 kg (157 lb 10.1 oz) LMP 07/27/2009 BMI 26.64 kg/m? General Appearance: Well appearing, alert, in no acute distress, well-hydrated, well nourished.. Lungs: Lungs clear to auscultation. No wheezing, rhonchi, rales.. Heart: RRR without murmur, gallop, or rubs. No ectopy. Health Maintenance List HIV Screening Never done Cervical Cancer Screening Never done Shingrix Vaccine(1 of 2) Never done Pneumococcal Vaccine: 50+(1 of 1 - PCV) Never done Mammogram Screening due on 05/24/2017 Colorectal Cancer Screening due on 11/02/2021 (more content not included)... 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 RESULT: LIGAMENTS Triangular fibrocartilage: Intact with some degenerative changes at the ulnar attachments. Scapholunate ligament: Tear dorsally with some rotation of the scaphoid and some early proximal capitate migration and some early dorsal tilting of the lunate. Lunotriquetral ligament: Intact. TENDONS Flexor tendons and carpal tunnel: Intact tendons. No significant tenosynovitis. Median nerve is within normal limits at the carpal tunnel. Extensor tendons: Intact tendons. Mild tendinosis and tenosynovitis of the extensor carpi ulnaris at the ulnar styloid with some adjacent bony reactive changes with small subcortical cysts and edema of the ulnar styloid. BONES AND JOINTS Bones and bone marrow: No fractures or suspicious marrow replacing lesions. No osteonecrosis in the lunate. Reactive edema and cystic changes in the distal ulna as well as reactive degenerative cysts and edema throughout the carpal bones as described. Joints: Proximal capitate migration with severe osteoarthritis at the articulation with the lunate and scaphoid, with some early bony remodeling and subchondral cystic changes. There is also moderate to severe triscaphe and first CMC osteoarthritis. Mild to moderate radio scaphoid osteoarthritis. Moderate osteoarthritis at the distal radioulnar joint. Scattered subchondral degenerative changes throughout the carpal bones and distal ulna. Moderate effusion of the distal radioulnar joint in the first CMC joint.. Volar ganglion at the radiocarpal joint which is mildly loculated and deep to the flexor tendons, measuring 1.3 x 0.6 x 1.2 cm in conglomerate. There is also anterior neck which wraps around the radial aspect of the joint more dorsally. OTHER Other: No other significant findings. Localizer images: No significant additional findings. IMPRESSION: Moderate to severe osteoarthritis, as detailed. Dorsal scapholunate ligament tear with early developing scapholunate advanced collapse. Mild tendinosis and tenosynovitis of the extensor carpi ulnaris at the ulnar styloid, with reactive bony edema and cyst at the ulnar styloid. No osteonecrosis. Small deep loculated volar radiocarpal ganglion cyst. [employer] Advisor: [facility] Transcribe Date/Time: Jul 24 2024 2:40P Dictated by : SARAH ALMARAZ MD This examination was interpreted and the report reviewed and electronically signed by: SARAH ALMARAZ MD on Jul 24 2024 3:42PM EST [id number] Normal [facility] CNCOon 07-15-2024 CNCO Letter Text Normal [facility] CBC panel Auto (Bld)on 07-11 Erythrocyte distribution width (RBC) [Ratio] 12.9 % 11.5 - 15.0 % [facility] Hematocrit (Bld) [Volume fraction] 42.4 % 36.0 - 46.0 % [facility] Hemoglobin (Bld) [Mass/Vol] 13.7 g/dL 11.5 - 15.5 g/dL [facility] Interpretation and review of laboratory results Normal [facility] MCH (RBC) [Entitic mass] 29.5 pg 26.0 - 34.0 pg [facility] MCHC (RBC) [Mass/Vol] 32.3 g/dL 30.5 - 36.0 g/dL [facility] MCV (RBC) [Entitic vol] 91.4 fL 80.0 - 100.0 fL [facility] Nucleated RBC (Bld) [#/Vol] NINF [facility] Platelet mean volume (Bld) [Entitic vol] 10.6 fL 9.0 - 12.7 fL [facility] Platelets (Bld) [#/Vol] 329 10*3/uL [facility] RBC (Bld) [#/Vol] 4.64 10*6/uL 3.90 - 5.2 0 m/uL [facility] WBC (Bld) [#/Vol] 6.33 10*3/uL [facility] Erythrocyte distribution width (RBC) [Ratio] 12.9 % Normal 11.5-15.0 [facility] Comment on above: Order Comment: Марияi morgan Type: BLOOD SPECIMENOrdering Facility: [facility] Address: [address] [place] [address] Performed By: #### 5 8410-2 ####[facility] [id number] [address] [place] Hematocrit (Bld) [Volume fraction] 42.4 % Normal 36.0-46.0 [facility] Comment on above: Order Comment: Gloria mora Type: BLOOD SPECIMENOrdering Facility: [facility] Address: [address] [place] [address] Performed By: #### 5 8410-2 ####[facility] [id number] [place] [address] [place] Hemoglobin (Bld) [Mass/Vol] 13.7 g/dL Normal 11.5-15.5 [facility] Comment on above: Order Comment: Марияi morgan Type: BLOOD SPECIMENOrdering Facility: [facility] Address: [address] [place] [address] Performed By: #### 5 8410-2 ####[facility] [id number] [place] [address] [place] MCH (RBC) [Entitic mass] 29.5 pg Normal 26.0-34.0 [facility] Comment on above: Order Comment: Speci men Type: BLOOD SPECIMENOrdering Facility: [facility] Address: [address] [place] [address] Performed By: #### 5 8410-2 ####[facility] [id number] [place] [address] [place] MCHC (RBC) [Mass/Vol] 32.3 g/dL Normal 30.5-36.0 [facility] Comment on above: Order Comment: Speci men Type: BLOOD SPECIMENOrdering Facility: [facility] Address: [address] [place] [address] Performed By: #### 5 8410-2 ####[facility] [id number] [place] [address] [place] MCV (RBC) [Entitic vol] 91.4 fL Normal 80.0-100.0 [facility] Comment on above: Order Comment: Speci men Type: BLOOD SPECIMENOrdering Facility: [facility] Address: [address] [place] [address] Performed By: #### 5 8410-2 ####[facility] [id number] [place] [address] [place] Nucleated RBC (Bld) [#/Vol] 10*3/uL Normal <0.01 [facility] Comment on above: Order Comment: Speci men Type: BLOOD SPECIMENOrdering Facility: [facility] Address: [address] [place], [place] [address] Performed By: #### 5 8410-2 ####[facility] [id number] [place] [address] [place] Platelet mean volume (Bld) [Entitic vol] 10.6 fL Normal 9.0-12.7 [facility] Comment on above: Order Comment: Speci men Type: BLOOD SPECIMENOrdering Facility: [facility] Address: [address] [place] [address] Performed By: #### 5 8410-2 ####[facility] GARY BARNESNCLIA [id number] [place] [address] [place] Platelets (Bld) [#/Vol] 329 10*3/uL Normal 150-400 [facility] Comment on above: Order Comment: Speci men Type: BLOOD SPECIMENOrdering Facility: [facility] Address: [address] [place] [address] Performed By: #### 5 8410-2 ####[facility]ronNCLIA [id number] [place] [address] [place] RBC (Bld) [#/Vol] 4.64 10*6/uL Normal 3.90-5.20 [facility] Comment on above: Order Comment: Speci men Type: BLOOD SPECIMENOrdering Facility: [facility] Address: [address] [place] [address] Performed By: #### 5 8410-2 ####[facility] [id number] [place] [address] [place] WBC (Bld) [#/Vol] 6.33 10*3/uL Normal 3.70-11.00 [facility] Comment on above: Order Comment: Speci men Type: BLOOD SPECIMENOrdering Facility: [facility] Address: [address] [place] [address] Performed By: #### 5 8410-2 ####[facility]CL[facility] [id number] [address] [place] CNOVon 07-11-2024 CNOV Office Visit (FAMPWS ) NATIVIDAD CONDE ([id number]) 1960 F Date Time Provider Department 07/11/24 1:20 PM TIA HERNANDEZ During your visit today, we recorded the following information about you: Pulse Respiration Blood pressure Weight 80/minute 16/minute 170/100 70.7 kg Height 1.638 m Tia Hernandez MD 07/11/2024 2:22 PM Signed Chief Complaint Patient presents with: Physical HPI Natividad Conde is a 64 year old female who presents here today for a Wellness visit. Pt here today for a routine wellness visit. Working FT, caring for daughter and . Denies any stomach, bowel, or urinary issues. Sinuses: Recurrent issues with sinuses. Does take Claritin D 24 hour. Has not been taking the Claritin due to her BP being elevated. Denies any chest pain and SOB. 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 Her BP has been elevated lately, BP at work when checked by nurse was 180/86 and when she was in the ER last week her BP was 180/84. Admits to having increased stress. Never been dx with HTN or been treated for HTN in past. Eats fairly well and stays active with working FT and caring for family members. Thyroid: On current regimen of Synthroid 75 mcg once daily. Denies any missed dosages. Pain: Reports pain in different joints that she would like to have evaluated. She went to [facility] ER last week for right shoulder pain had XR of shoulder which showed arthritis and CT neck which showed the spinal stenosis. Has been having right wrist pain and swelling x 1 week. Has used topical pain relievers, Aleve prn and tried compression. No heat or ice used. Past medical history, appointments, medications, allergies reviewed. 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 Cervical disc disease History of smoking Multinodular goiter 04/14/2013 thyroiditis 04/2013 Osteopenia 05/15/2011 Previous Surgical History PAST SURGICAL HISTORY Procedure Laterality Date BIOPSY BREAST OPEN INCISIONAL 07/05/2012 left, Fibroadenoma BX BREAST PERC NEED W/GUID 05/31/2012 U/S needle core UOQ left breast, fibroadenoma and Phyllodes tumor CERV SPINE FUSN,ANTER,BELOW C2 1996 DELIVERY ONLY X 2 , low transverse LAPAROSCOPY SURG CHOLECYSTECTOMY 10/15/2018 Cholecystectomy, lap NEUROPLASTY AND/TRANSPOS MEDIAN NRV CARPAL TUNNE Carpal tunnel decomp Right hand PAST SURGICAL HISTORY OF N/A 08/03/2021 Parathyroid removed TONSILLECTOMY PRIMARY/SECONDARY Tonsillectomy Family History FAMILY HISTORY Problem Relation Age of Onset Diabetes Mother Hypertension Mother DVT Mother Hypertension Father Alcohol/Drug Father alcohol No Known Problems Sister No Known Problems Brother No Known Problems Brother No Known Problems Brother Heart Maternal Grandmother hardening of the arteries Osteoporosis Maternal Grandmother shrunk with age Ischemic Heart Disease Maternal Grandfather 63 NM Hypertension Maternal Aunt Diabetes Maternal Aunt Coronary Artery Disease No Family History Thyroid No Family History Blood Disease No Family History Blood Clots No Family History Factor 5 Leiden No Family History Stroke No Family History Systemic Lupus Erythematosus No Family History Multiple Sclerosis No Family History Bipolar disorder No Family History Schizophrenia No Family History Alzheimer's Disease No Family History Dementia No Family History Parkinson?s Disease No Family History Aneurysm No Family History COPD No Family History Hyperlipidemia No Family History Patient Allergies ALLERGIES Allergen Reactions Levothyroxine Other: See Comments Bloating and Vuong Current Medications Current Outpatient Medications on File Prior to Visit Medication Sig levothyroxine (SYNTHROID) 75 mcg tablet Take 1 tablet by mouth once daily. Take on empty stomach. For Thyroid loratadine-pseudoephedr ine ER (CLARITIN-D 24) 10-240 mg Tb24 Take 1 tablet by mouth once daily. (Patient taking differently: Take 1 tablet by mouth once daily as needed.) omeprazole (PRILOSEC) 20 mg capsule Take 1 capsule by mouth daily before breakfast. 1/2 hr before meal. wjrmnkp-tgsubueic-hnebc in D3 500 mg-5 mcg (200 unit) per tablet Take 1 tablet by mouth once daily. (Patient taking differently: Take 1 tablet by mouth as needed.) Cyanocobalamin (VITAMIN B-12) 2,000 mcg TbER Take 1 tablet by mouth once daily. (Patient taking differently: Take 1 tablet by mouth once daily. 2500 mcg) No current facility-administered medications on file prior to visit. Social History Social History Tobacco Use Smoking status: Former Current packs/day: 0.00 Average packs/day: 0.7 packs/day for 20.0 years (14.0 ttl pk-yrs) Types: Cigarettes Start date: 1984 Quit date: 2004 (more content not included)... Normal [facility] metabolic 2000 panelOrdered By: Jessica Anderson on 07-11-2024 Albumin [Mass/Vol] 4.4 g/dL 3.9 - 4.9 g/dL [facility] ALP [Catalytic activity/Vol] 66 U/L 34 - 123 U/L [facility] ALT [Catalytic activity/Vol] 21 U/L 7 - 38 U/L [facility] Anion gap [Moles/Vol] 13 mmol/L 8 - 15 mmol/L [facility] AST [Catalytic activity/Vol] 18 U/L 13 - 35 U/L [facility] Bilirubin [Mass/Vol] 0.3 mg/dL 0.2 - 1.3 mg/dL [facility] Calcium [Mass/Vol] 9.5 mg/dL 8.5 - 10. 2 mg/dL [facility] Chloride [Moles/Vol] 103 mmol/L 98 - 107 mmol/L [facility] CO2 [Moles/Vol] 23 mmol/L 22 - 30 mmol/L [facility] Creatinine [Mass/Vol] 0.63 mg/dL 0.58 - 0.96 mg/dL [facility] GFR/1.73 sq M.predicted among non-blacks MDRD (S/P/Bld) [Vol rate/Area] 100 mL/min/{1.73_m2} - PINF [facility] Comment on above: Estimated Glomerular Filtration Rate (eGFR) is calculated using the 2020 CKD-EPI creatinine equation. This equation utilizes serum creatinine, sex, and age as parameters. The creatinine assay has traceable calibration to isotope dilution-mass spectrometry. Refer to KDIGO guidelines for clinical interpretation. In patients with unstable renal function, e.g. those with acute kidney injury, the eGFR may not accurately reflect actual GFR. Glucose [Mass/Vol] 99 mg/dL 74 - 99 mg/dL [facility] Comment on above: The [place] Diab[employer] s Association (ADA) provides guidance for cutoff values for fasting glucose and random glucose. The ADA defines fasting as no caloric intake for at least 8 hours. Fasting plasma glucose results between 100 to 125 mg/dL indicate increased risk for diabetes (prediabetes). Fasting plasma glucose results greater than or equal to 126 mg/dL meet the criteria for diagnosis of diabetes. In the absence of unequivocal hyperglycemia, results should be confirmed by repeat testing. In a patient with classic symptoms of hyperglycemia or hyperglycemic crisis, random plasma glucose results greater than or equal to 200 mg/dL meet the criteria for diagnosis of diabetes. Reference: Standards of Medical Care in Diabetes 2016, [place] Diabetes Association. Diabetes Care. 2016.39(Suppl 1). Interpretation and review of laboratory results Normal [facility] Potassium [Moles/Vol] 4.2 mmol/L 3.7 - 5.1 mmol/L [facility] Protein [Mass/Vol] 7.3 g/dL 6.3 - 8.0 g/dL [facility] Sodium [Moles/Vol] 139 mmol/L 136 - 144 mmol/L [facility] Urea nitrogen [Mass/Vol] 14 mg/dL 7 - 21 mg/dL [facility] Comprehensive metabolic 2000 panelon 07-11-2024 Albumin [Mass/Vol] 4.4 g/dL Normal 3.9-4.9 [facility] Comment on above: Order Comment: Gloria mora Type: BLOOD SPECIMENOrdering Facility: [facility] Address: [address] [place] [address] Performed By: #### 3 0167 ####[facility]ITALCLIA [id number] [address] [place]#### [address]-7 ####[facility] [id number] [place] [address] [place] ALP [Catalytic activity/Vol] 66 U/L Normal 34-123 [facility] Comment on above: Order Comment: Gloria mora Type: BLOOD SPECIMENOrdering Facility: [facility] Address: [address] [place] [address] Performed By: #### 3 016- 3024-7 ####[facility] LABORATORYCLIA [id number] [address] [place]#### [address]-6 ####[facility] MILLTOWNCLIA [id number] [place] [address] [place] ALT [Catalytic activity/Vol] 21 U/L Normal 7-38 [facility] Comment on above: Order Comment: Speci men Type: BLOOD SPECIMENOrdering Facility: [facility] Address: [address] [place] [address] Performed By: #### 3 016-, 7 ####[facility] LABORATORYCLIA [id number] [address] [place]#### 41485-3 ####[facility] MILLWNCLIA [id number] [place] [address] [place] Anion gap [Moles/Vol] 13 mmol/L Normal 8-15 [facility] Comment on above: Order Comment: Speci men Type: BLOOD SPECIMENOrdering Facility: [facility] Address: [address] [place] [address] Performed By: #### 3 016-, 7 ####[facility] LABORATORYCLIA [id number] [address] [place]#### 83233-6 ####[facility] MILLTOWNCLIA [id number] [place] [address] [place] AST [Catalytic activity/Vol] 18 U/L Normal 13-35 [facility] Comment on above: Order Comment: Speci men Type: BLOOD SPECIMENOrdering Facility: [facility] Address: [facility] [place] [address] Performed By: #### 3 016-, 7 ####[facility]ORATORYCLIA [id number] [address] [place]#### 28036-8 ####[facility] MILLTOWNCLIA [id number] [place] [address] [place] Bilirubin [Mass/Vol] 0.3 mg/dL Normal 0.2-1.3 [facility] Comment on above: Order Comment: Speci men Type: BLOOD SPECIMENOrdering Facility: [facility] Address: [address] [place] [address] Performed By: #### 3 016-3, 7 ####[facility]ORATORYCLIA [id number] [place] [address] [place]#### 04323-0 ####[facility] MILLTOWNCLIA [id number] [place] [address] [place] Calcium [Mass/Vol] 9.5 mg/dL Normal 8.5-10.2 [facility] Comment on above: Order Comment: Speci men Type: BLOOD SPECIMENOrdering Facility: [facility] Address: [address] [place] [address] Performed By: #### 3 016-, 3023-11 ####[facility]ORATORYCLIA [id number] [place] [address] [place]#### 83462-7 ####[facility] MILLTOWNCLIA [id number] [place] [address] [place] Chloride [Moles/Vol] 103 mmol/L Normal 98-107 [facility] Comment on above: Order Comment: Speci men Type: BLOOD SPECIMENOrdering Facility: [facility] Address: [address] [place] [address] Performed By: #### 3 016-, 7 ####[facility]ORATORYCLIA [id number] [place] [address] [place]#### 57478-6 ####[facility] GARY MILLTOWNCLIA [id number] [place] [address] [place] CO2 [Moles/Vol] 23 mmol/L Normal 22-30 [facility] Comment on above: Order Comment: Speci men Type: BLOOD SPECIMENOrdering Facility: [facility] Address: [address] [place] [address] Performed By: #### 3 016-3, 7 ####[facility] LABORATORYCLIA [id number] [address]#### 13281-2 ####[facility] HOSPITALLIA [id number] [address] [place] Creatinine [Mass/Vol] 0.63 mg/dL Normal 0.58-0.96 [facility] Comment on above: Order Comment: Speci men Type: BLOOD SPECIMENOrdering Facility: [facility] Address: [address] [place] [address] Performed By: #### 3 016-3, 7 ####[facility]ITALCLIA [id number] [address]#### 08469-4 ####[facility] [id number] [address] Creatinine and Glomerular filtration rate.predicted panel (S/P/Bld) 100 mL/min/1.73m??? Normal >=60 [facility] Comment on above: Order Comment: Speci men Type: BLOOD SPECIMENOrdering Facility: [facility] Address: [address] [place] [address] Result Comment: Olivia mated Glomerular Filtration Rate (eGFR) is calculated using the 2020 CKD-EPI creatinine equation. This equation utilizes serum creatinine, sex, and age as parameters. The creatinine assay has traceable calibration to isotope dilution-mass spectrometry. Refer to KDIGO guidelines for clinical interpretation. In patients with unstable renal function, e.g. those with acute kidney injury, the eGFR may not accurately reflect actual GFR. Performed By: #### 3 016-3, 7 ####[facility] LABORATORYCLIA [id number] [address]#### 37036-0 ####[facility]OSPITALLIA [id number] [place] [address] [place] Glucose [Mass/Vol] 99 mg/dL Normal 74-99 [facility] Comment on above: Order Comment: Gloria mora Type: BLOOD SPECIMENOrdering Facility: [facility] Address: [address] [place] [address] Result Comment: The [place] Diabetes Association (ADA) provides guidance for cutoff values for fasting glucose and random glucose. The ADA defines fasting as no caloric intake for at least 8 hours. Fasting plasma glucose results between 100 to 125 mg/dL indicate increased risk for diabetes (prediabetes). Fasting plasma glucose results greater than or equal to 126 mg/dL meet the criteria for diagnosis of diabetes. In the absence of unequivocal hyperglycemia, results should be confirmed by repeat testing. In a patient with classic symptoms of hyperglycemia or hyperglycemic crisis, random plasma glucose results greater than or equal to 200 mg/dL meet the criteria for diagnosis of diabetes. Reference: Standards of Medical Care in Diabetes 2016, [place] Diabetes Association. Diabetes Care. 2016.39(Suppl 1). Performed By: #### 3 016-3, 3024-7 ####[facility] LABORATORYCLIA [id number] [place] [address] [place]#### 76319-2 ####[facility] [id number] [place] [address] [place] Potassium [Moles/Vol] 4.2 mmol/L Normal 3.7-5.1 [facility] Comment on above: Order Comment: Марияi men Type: BLOOD SPECIMENOrdering Facility: [facility] Address: [address] [place] [address] Performed By: #### 3 016-3, 3024-7 ####[facility] LABORATORYCLIA [id number] [place] [address] [place]#### 93410-8 ####[facility]ATIONNCLIA [id number] [place] [address] [place] Protein [Mass/Vol] 7.3 g/dL Normal 6.3-8.0 [facility] Comment on above: Order Comment: Speci men Type: BLOOD SPECIMENOrdering Facility: [facility] Address: [address] [place] [address] Performed By: #### 3 016-3, 7 ####[facility] LABORATORYCLIA [id number] [address]#### 52124-9 ####[facility] GARY MILLTOWNCLIA [id number] [place] [address] [place] Sodium [Moles/Vol] 139 mmol/L Normal 136-144 [facility] Comment on above: Order Comment: Speci men Type: BLOOD SPECIMENOrdering Facility: [facility] Address: [address] [place] [address] Performed By: #### 3 016-, 3023-11 ####[facility] LABORATORYCLIA [id number] [address]#### 09753-9 ####[facility] MILLTOWNCLIA [id number] [address] [place] Urea nitrogen [Mass/Vol] 14 mg/dL Normal 7-21 [facility] Comment on above: Order Comment: Speci men Type: BLOOD SPECIMENOrdering Facility: [facility] Address: [address] [place] [address] Performed By: #### 3 016-, 7 ####[facility]ORATORYCLIA [id number] [address] [place]#### 13723-5 ####[facility] G[facility] MILLTOWNCLIA [id number] [place] [address] [place] T4 Free SerPl-mCncon 025 Free T4 [Mass/Vol] 1.6 ng/dL Normal 0.9-1.7 [facility] Comment on above: Order Comment: Speci men Type: BLOOD SPECIMENOrdering Facility: [facility] Address: [address] [place] [address] Performed By: #### 3 016-3, 3024-7 ####[facility]ITAL[facility] [id number] [address]#### 890[address]-7 ####[facility] [id number] [address] OF [place] TSH SerPl-aCncon 07-11-2024 TSH Qn 1.250 m[IU]/L Normal 0.270-4.200 [facility] Comment on above: Order Comment: Speci men Type: BLOOD SPECIMENOrdering Facility: [facility] Address: [address] [place] [address] Performed By: #### 3 016-3, 3024-7 ####[facility] LABORATORYCLIA [id number] [address]#### [address]85[address]-1 ####[facility] [id number] [address] XR WRIST 3V PA/LAT/OBL RTon 07-11-2024 XR WRIST 3V PA/LAT/OBL RT * * *Final Report* * * DATE OF EXAM: Jul 11 2024 2:16PM WOX 5271 - XR WRIST 3V PA/LAT/OBL RT / PROCEDURE REASON: Right wrist pain * * * * Physician Interpretation * * * * EXAM: XR WRIST 3V PA/LAT/OBL RT PATIENT HISTORY: Right wrist pain TECHNIQUE: PA, lateral, oblique radiograph of the right wrist. COMPARISON: Radiograph 07/06/2016 FINDINGS: Borderline negative ulnar variance. Increase sclerosis of the lunate with height loss compared to radiograph 07/06/2016. Suspected rotation of the scaphoid. 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 Additional areas of subchondral sclerosis involving the carpal bones. Degenerative change of the first carpometacarpal joint. Subchondral cyst in the distal ulna. No acute fracture. 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 Further imaging characterization with nonemergent right wrist MRI may be pursued. ACTIONABLE RESULT: FOLLOW-UP Acuity: Actionable Findings: Musculoskeletal/Rheumat ologic System Routing Code: MSK_1 Recommendation: Unlisted Recommendation (see report) Time Frame: At the discretion of the clinical team. COMMUNICATION: Results will be communicated with the ordering provider via SnapMD staff message or phone message by Imaging Support Services within 2 business days of report finalization. --END OF FINDING-- Solar Energy Advisor: PSCB Transcribe Date/Time: Jul 11 2024 2:21P Dictated by : CARMINA PRADO MD This examination was interpreted and the report reviewed and electronically signed by: CARMINA PRADO MD on Jul 11 2024 2:31PM EST [id number] ACTIONABLE Invalid Interpretation Code [facility] XR Wrist - right PA and Late ral and ObliqueOrdered By: Ccf Provider on 07-11-2024 Interpretation and review of laboratory results Abnormal [facility] Radiology Result ACTIONABLE Abnormal [facility] Comment on above: This report contains an incidental or actionable finding. This finding may be a new finding separate from the reason your provider ordered the imaging test or it may be an already known finding that needs additional or continued follow-up. Because of this incidental or actionable finding, you may need another test (imaging or a different type of test). Please contact your provider for the next steps. 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 Further imaging characterization with nonemergent right wrist MRI may be pursued. ACTIONABLE RESULT: FOLLOW-UP Acuity: Actionable Findings: Musculoskeletal/Rheumat ologic System Routing Code: MSK_1 Recommendation: Unlisted Recommendation (see report) Time Frame: At the discretion of the clinical team. COMMUNICATION: Results will be communicated with the ordering provider via SnapMD staff message or phone message by Imaging Support Services within 2 business days of report finalization. --END OF FINDING-- Solar Energy Advisor: PSCB Transcribe Date/Time: Jul 11 2024 2:21P Dictated by : CARMINA PRADO MD This examination was interpreted and the report reviewed and electronically signed by: CARMINA PRADO MD on Jul 11 2024 2:31PM EST DIVISION OF RADIOLOGY * * *Final Report* * * DATE OF EXAM: Jul 11 2024 2:16PM WOX 5271 - XR WRIST 3V PA/LAT/OBL RT / PROCEDURE REASON: Right wrist pain * * * * Physician Interpretation * * * * EXAM: XR WRIST 3V PA/LAT/OBL RT PATIENT HISTORY: Right wrist pain TECHNIQUE: PA, lateral, oblique radiograph of the right wrist. COMPARISON: Radiograph 07/06/2016 FINDINGS: Borderline negative ulnar variance. Increase sclerosis of the lunate with height loss compared to radiograph 07/06/2016. Suspected rotation of the scaphoid. 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 Additional areas of subchondral sclerosis involving the carpal bones. Degenerative change of the first carpometacarpal joint. Subchondral cyst in the distal ulna. No acute fracture. DIVISION OF RADIOLOGY Provider, [facility] - 07/11/2024 * * *Final Report* * * DATE OF EXAM: Jul 11 2024 2:16PM WOX 5271 - XR WRIST 3V PA/LAT/OBL RT / PROCEDURE REASON: Right wrist pain * * * * Physician Interpretation * * * * EXAM: XR WRIST 3V PA/LAT/OBL RT PATIENT HISTORY: Right wrist pain TECHNIQUE: PA, lateral, oblique radiograph of the right wrist. COMPARISON: Radiograph 07/06/2016 FINDINGS: Borderline negative ulnar variance. Increase sclerosis of the lunate with height loss compared to radiograph 07/06/2016. Suspected rotation of the scaphoid. 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 Additional areas of subchondral sclerosis involving the carpal bones. Degenerative change of the first carpometacarpal joint. Subchondral cyst in the distal ulna. No acute fracture. 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 Further imaging characterization with nonemergent right wrist MRI may be pursued. ACTIONABLE RESULT: FOLLOW-UP Acuity: Actionable Findings: Musculoskeletal/Rheumat ologic System Routing Code: MSK_1 Recommendation: Unlisted Recommendation (see report) Time Frame: At the discretion of the clinical team. COMMUNICATION: Results will be communicated with the ordering provider via SnapMD staff message or phone message by Imaging Support Services within 2 business days of report finalization. --END OF FINDING-- Solar Energy Advisor: SWAPNA Transcribe Date/Time: Jul 11 2024 2:21P Dictated by : CARMINA PRADO MD This examination was interpreted and the report reviewed and electronically signed by: CARMINA PRADO MD on Jul 11 2024 2:31PM EST [facility] Radiology Study observation (narrative) [facility] Emergency Department Summary on 06-26-2024 Emergency Department Summary [facility] Medical Records Department [address] [place] [address] Emergency Department Summary 06/26/24 MR#: [id number] Acct: [id number] Name: NATIVIDAD CONDE Rep #: [id number] : 1960 64 From: Omar Rapp MD PCP: Dr. Tia Hernandez MD Status:REG ER Location: ED HPI History of Present Illness Chief Complaint: Upper Extremity Injury Narrative Narrative: 64-year-old female past medical history of previous cervical radiculopathy with plate and screws inserted neck [place] [address] Garry Trivedi, presents with a few weeks worth of right neck and r ight shoulder pain. She denies any fevers or chills, no recent trauma. She states this feels like her prior radicular pain, but she has not had problems since her surgery. She presents with pain from her right neck radiating into her right shoulder for the last few weeks. She has an appointment with her primary care provider on the , approximately 2 weeks from now, but she states that the pain is becoming more intense. She is experiencing numbness as well of her right shoulder. [facility] Home Medications ???Medication ???Instructions ???Recorded ???Last Taken ???Type cyanocobalamin (vitamin B-12) 1,500 mcg PO DAILY 05/04/17 Unknow n History 2,000 mcg tablet loratadine 10 mg tablet (Claritin) 10 mg PO DAILY 05/04/17 Unknown History lorazepam 1 mg tablet (Ativan) 1 mg PO TID PRN anxiety #10 tabs 1 Unknown Rx oxycodone-acetaminophen 5 mg-325 1 tab PO Q6H PRN pain 3 days #12 0 06/26/24 Unknown Rx mg tablet (Percocet) tabs Allergy/AdvReac Type Severity Reaction Status Date / Time No Known Allergies Allergy Verified 05/04/17 01:09 Social History Smoking Status: Unknown if ever smoked ROS ROS ED ROS Narrative Review of systems positive for right neck and right shoulder pain and numbness. No fevers or chills, no nausea or vomiting, no recent trauma. No chest pain or shortness of breath. EXAM Physical Exam Narrative Exam Narrative: Afebrile. Vital signs noted. Nontoxic-appearing. Cardiovascular examination reveals a regular rate and rhythm. Lungs clear to auscultation bilaterally. Abdomen soft nontender with normoactive bowel sounds. No vertebral point tenderness or bony step-off of the cervical spine. Diffuse tenderness to palpation right shoulder. No crepitance. Able to raise arm from side. Const Vital Signs: 06/26/24 09:27 Temperature 98.3 F Temperature Source Temporal Pulse Rate 87 Respiratory Rate 16 Blood Pressure 180/86 H Blood Pressure Mean 117 Pulse Ox 99 Oxygen Delivery Method Room Air MDM MDM MDM Narrative Medical decision making narrative: Differential diagnosis includes but not limited to shoulder arthralgia versus fracture. I have low clinical suspicion for dislocation. Additionally, I think she may have more of a cervical radiculopathy although she has had fusion surgery from continued DJD of the cervical spine versus spinal stenosis. I have low suspicion clinically for fracture as she has had no trauma. Right shoulder x-ray interpreted by myself independently shows no evidence of dislocation or fracture. I reviewed the radiology report which confirms my independent interpretation. Additionally they obtained CT of the cervical spine and reviewed the radiology report. While there is no evidence of acute fracture, she does have postsurgical changes as well as continued DJD and disc space narrowing and spinal stenosis. At this point in time, she did not drive here so she was given 1 oxycodone tablet here and prescription written for Percocet 5 mg - 325 mg #12 for 3 days. She is to follow-up with her primary care provider, and she needs to follow-up with her orthopedic spine surgeon in [place], [place], Dr. Garry Trivedi. Disposition is discharged home in stable condition History Record Review Discussion w/independent historian: Patient Discharge Plan Triage Chief Complaint: Upper Extremity Injury ED Provider: Omar Rapp Dx/Rx/DC Orders Clinical Impression: Cervical radiculopathy, Degenerative cervical spinal stenosis Instructions: ED Neck Pain Prescriptions: New oxycodone-acetaminophen [Percocet] 5-325 mg tablet 1 tab PO Q6H PRN (Reason: pain) 3 Days Qty: 12 0RF No Action loratadine [Claritin] 10 MG tablet 10 mg PO DAILY cyanocobalamin (vitamin B-12) 2,000 MCG tablet 1,500 mcg PO DAILY lorazepam [Ativan] 1 mg tablet 1 mg PO TID PRN (Reason: anxiety) Qty: 10 0RF Primary Care Provider: Tia Hernandez Referrals: Tia Hernandez MD [Primary Care Provider] - As soon as possible Activity Restrictions/Additional Instructions: Follow-up with your orthopedic surgeon, Dr. Garry Trivedi as soon as possible. Print Language: Armenian Di (more content not included)... Normal [facility] Shoulder min 2 Viewson 06-26 Shoulder min 2 Views [facility] Imaging Services [address] [place], [place] [address] Shoulder min 2 Views MR#: [id number] Acct: [id number] Name: NATIVIDAD CONDE Rep #: [id number] : 1960 F 64 From: Oli Valerio PCP: Dr. Tia Hernandez MD Status: REG ER Study: Shoulder min 2 Views Date of Exam: 06/26/24 Exam# [id number] Ordering Dr: Omar Rapp MD PROCEDURE: SHOULDER MIN 2 VIEWS REASON FOR EXAM: Pain. TECHNIQUE: Four view right shoulder series COMPARISON: Prior lower cervical surgery is partially visualized at the edge of imaging. [id number] degenerative changes of the visualized spine are seen. Moderate right acromioclavicular joint degenerative changes are noted. The right glenohumeral joint demonstrates minimal degenerative changes, without apparent joint narrowing. No acute fracture or dislocation is seen. Reading Location: [address] CC: Dr. Omar Rapp MD; Dr. Tia Hernandez MD Solar Energy Advisor: Signed Normal [facility] Spine Cervical without Contr ason 06-26-2024 Spine Cervical without Contras [facility] Imaging Services [address] [place] [address] Spine Cervical without Contras MR#: [id number] Acct: [id number] Name: NATIVIDAD CONDE Rep #: [id number] : 1960 F 64 From: Abdon marc MD PCP: Dr. Tia Hernandez MD Status: REG ER Study: Spine Cervical without Contras Date of Exam: 0 06/26/24 Exam# [id number] Ordering Dr: Omar Rapp MD PROCEDURE: SPINE CERVICAL WITHOUT CONTRAS REASON FOR EXAM: Right shoulder pain. Prior cervical fusion. TECHNIQUE: Cervical spine CT without contrast. COMPARISON: None. FINDINGS: Alignment: Straightening of the normal cervical lordosis. Vertebrae: No acute fracture Soft Tissues: Unremarkable C1-2: Normal alignment. Dens appears intact. C2-3: Unremarkable C3-4: Marked degree of disc space narrowing and spondylosis. Uncovertebral arthrosis worse on the right side with bilateral neural foraminal stenosis more prominent on the right side. C4-5: The patient is status post anterior fusion with screw and plate fixation device. There is evidence of disc space narrowing. Right neural foraminal stenosis due to uncovertebral arthrosis. C5-6: Status post anterior fusion with plate and screw fixation device. Moderate degree of right neural foraminal stenosis due to uncovertebral arthrosis. C6-7: Marked degree of disc space narrowing. Spondylosis. C7-T1: Unremarkable CT/Spine Cervical without Contras IMPRESSION: NO ACUTE CERVICAL FRACTURE. Multilevel degenerative changes as described. Prior anterior fusion at the C4-C5, C5-C6 levels. One or more dose reduction techniques were used (e.g., Automated exposure control, adjustment of the mA and/or kV according to patient size, use of iterative reconstruction technique). Reading Location: [place] [address] CC: Dr. Omar Rapp MD; Dr. Tia Hernandez MD Solar Energy Advisor: Signed Normal [facility] Basic metabolic 2000 panelon 03-18-2024 Anion gap [Moles/Vol] 16 mmol/L High 8-15 [facility] Comment on above: Order Comment: Speci men Type: BLOOD SPECIMENOrdering Facility: [facility] Address: [address] [place] [address] Performed By: #### 3 024-7, 3016-3, 36536-0 ####[facility] LABCLIA [id number] [place] [address] [place] Calcium [Mass/Vol] 9.7 mg/dL Normal 8.5-10.2 [facility] Comment on above: Order Comment: Speci men Type: BLOOD SPECIMENOrdering Facility: [facility] Address: [address] [place] [address] Performed By: #### 3 024-7, 3015-3, 88599-9 ####[facility] LABCLIA [id number] [place] [address] [place] Chloride [Moles/Vol] 105 mmol/L Normal 98-107 [facility] Comment on above: Order Comment: Speci men Type: BLOOD SPECIMENOrdering Facility: [facility] Address: [address] [place] [address] Performed By: #### 3 024-7, 3015-3, 73697-6 ####[facility] LABCLIA [id number] [place] [address] [place] CO2 [Moles/Vol] 22 mmol/L Normal 22-30 [facility] Comment on above: Order Comment: Speci men Type: BLOOD SPECIMENOrdering Facility: [facility] Address: [address] [place] [address] Performed By: #### 3 024-7, 6-3, 95088-2 ####[facility] LABCLIA [id number] [place] [address] [place] Creatinine [Mass/Vol] 0.65 mg/dL Normal 0.58-0.96 [facility] Comment on above: Order Comment: Speci men Type: BLOOD SPECIMENOrdering Facility: [facility] Address: [address] [place] [address] Performed By: #### 3 024-7, 3016-3, 91502-4 ####[facility] LABIA [id number] [place] [address] [place] Creatinine and Glomerular filtration rate.predicted panel (S/P/Bld) 100 mL/min/1.73m??? Normal >=60 [facility] Comment on above: Order Comment: Gloria mora Type: BLOOD SPECIMENOrdering Facility: [facility] Address: [address] [place] [address] Result Comment: Olivia mated Glomerular Filtration Rate (eGFR) is calculated using the 2020 CKD-EPI creatinine equation. This equation utilizes serum creatinine, sex, and age as parameters. The creatinine assay has traceable calibration to isotope dilution-mass spectrometry. Refer to KDIGO guidelines for clinical interpretation. In patients with unstable renal function, e.g. those with acute kidney injury, the eGFR may not accurately reflect actual GFR. Performed By: #### 3 024-7, 3016-3, 39498-7 ####[facility] LABIA [id number] [place] [address] [place] Glucose [Mass/Vol] 94 mg/dL Normal 74-99 [facility] Comment on above: Order Comment: Gloria mora Type: BLOOD SPECIMENOrdering Facility: [facility] Address: [address] [place] [address] Result Comment: The [place] Diabetes Association (ADA) provides guidance for cutoff values for fasting glucose and random glucose. The ADA defines fasting as no caloric intake for at least 8 hours. Fasting plasma glucose results between 100 to 125 mg/dL indicate increased risk for diabetes (prediabetes). Fasting plasma glucose results greater than or equal to 126 mg/dL meet the criteria for diagnosis of diabetes. In the absence of unequivocal hyperglycemia, results should be confirmed by repeat testing. In a patient with classic symptoms of hyperglycemia or hyperglycemic crisis, random plasma glucose results greater than or equal to 200 mg/dL meet the criteria for diagnosis of diabetes. Reference: Standards of Medical Care in Diabetes 2016, [place] Diabetes Association. Diabetes Care. 2016.39(Suppl 1). Performed By: #### 3 024-7, 3016-3, 60946-1 ####[facility] LABCLIA [id number] [place] [address] [place] Potassium [Moles/Vol] 4.4 mmol/L Normal 3.7-5.1 [facility] Comment on above: Order Comment: Speci men Type: BLOOD SPECIMENOrdering Facility: [facility] Address: [address] [place] [address] Performed By: #### 3 024-7, 3016-3, 57622-8 ####[facility] LABIA [id number] [place] [address] [place] Sodium [Moles/Vol] 143 mmol/L Normal 136-144 [facility] Comment on above: Order Comment: Speci men Type: BLOOD SPECIMENOrdering Facility: [facility] Address: [address] [place] [address] Performed By: #### 3 024-7, 3016-3, 00835-5 ####[facility] LABIA [id number] [place] [address] [place] Urea nitrogen [Mass/Vol] 12 mg/dL Normal 7-21 [facility] Comment on above: Order Comment: Speci men Type: BLOOD SPECIMENOrdering Facility: [facility] Address: [address] [place] [address] Performed By: #### 3 024-7, 6-3, 51249-1 ####[facility] LABNORTHEAST[facility] [id number] [place] [id number] [place] CATECHOLAMINES FRAon 024 CATECHOLAMINE INTERPRETATION PLASMA See Note Normal [facility] Comment on above: Order Comment: Speci men Type: BLOOD SPECIMENOrdering Facility: [facility] Address: [address] [place] [address] Result Comment: INTE RPRETIVE INFORMATION: Catecholamines Panel, Plasma Small increases in catecholamines (less than 2 times the upper reference limit) are usually the result of physiological stimuli, drugs, or improper specimen collection. Significant elevation of one or more catecholamines (2 or more times the upper reference limit) is associated with an increased probability of a neuroendocrine tumor. Measurement of plasma or urine fractionated metanephrines provides better diagnostic sensitivity than measurement of catecholamines. Lower catecholamine concentrations are observed in specimens collected from supine adults. To convert to picograms per milliliter (pg/mL), multiply the reported concentration for Dopamine by 0.153, Epinephrine by 0.183, and Norepinephrine by 0.169. Access complete set of age- and/or gender-specific reference intervals for this test in the [facility] Test Directory ([employer]). This test was developed and its performance characteristics determined by [facility]. It has not been cleared or approved by the US Food and Drug Administration. This test was performed in a CLIA certified laboratory and is intended for clinical purposes. Performed By: [facility] [address] [place] [address] [employer] Mate: Maxwell Martinez MD, PhD CLIA Number: [id number] Performed By: #### P LCAT ####[facility] HOSPITALIA [id number] [place] [address] DOPAMINE <130 Normal <=240 [facility] Comment on above: Order Comment: Speci men Type: BLOOD SPECIMENOrdering Facility: [facility] Address: [address] [place] [address] Result Comment: INTE RPRETIVE INFORMATION: Dopamine Seated (15 min) less than or equal to 240 pmol/L Supine (30 min) less than or equal to 240 pmol/L Performed By: #### P LCAT ####[facility] HOSPITALIA [id number] [place] [address] EPINEPHRINE (P) 136 pmol/L Normal <=330 [facility] Comment on above: Order Comment: Speci men Type: BLOOD SPECIMENOrdering Facility: [facility] Address: [address] [place] [address] Result Comment: INTE RPRETIVE INFORMATION:Epinephrine Seated (15 min) less than or equal to 330 pmol/L Supine (30 min) less than or equal to 265 pmol/L Performed By: #### P LCAT ####[facility]IESCLIA [id number] [place] [address] NOREPINEPHRINE 2176 pmol/L Normal 1327-1096 [facility] Comment on above: Order Comment: Speci men Type: BLOOD SPECIMENOrdering Facility: [facility] Address: [address] [place] [address] Result Comment: INTE RPRETIVE INFORMATION: Norepinephrine Seated (15 min) 1050 - 4800 pmol/L Supine (30 min) 680 - 3100 pmol/L Performed By: #### P LCAT ####[facility]IES[facility]IA [id number] [place] [address] CNOVon 03-18-2024 CNOV Office Visit (INTMWS ) ELTON,NATIVIDAD Hernandez ([id number]) 1960 F Date Time Provider Department 03/18/24 1:20 PM RICARDO LUNA IN[facility] During your visit today, we recorded the following information about you: Temperature Pulse Blood pressure Weight 98.8 degrees 72/minute 132/74 71.6 kg Ricardo Luna MD 03/18/2024 2:19 PM Signed This note was created using ABSriter. Subjective Patient presents with: Hypertension ER F/U Natividad Conde is a 63 year old female. PCP Tia Hernandez MD. She developed dizziness and palpitations at work 1 week ago. Work nurse checked her BP and it was 230/88 so she was referred to the ED 03/06/24. Hypertension was confirmed which improved with observation. Cardiac work up was negative. She was discharged with lorazepam as needed, as she was also dealing with family stressors. She was normally not anxious, and had no history of hypertension. Initial symptoms have resolved. She took sinus medication once in a while, last one 2 weeks ago. Review of Systems Constitutional: Negative for appetite change, diaphoresis, fatigue and unexpected weight change. Eyes: Negative for visual disturbance. Respiratory: Negative for chest tightness and shortness of breath. Cardiovascular: Negative for chest pain, palpitations and leg swelling. Gastrointestinal: Negative for abdominal pain, diarrhea, nausea and vomiting. Genitourinary: Negative for difficulty urinating. Skin: Negative for color change. Neurological: Negative for dizziness, weakness, numbness and headaches. ACTIVE PROBLEM LIST History of Smoking Cervical Disc Disease Abnormal Mammogram, Unspecified Multinodular Goiter Nondisplaced Fracture of Base of Fifth Metacarpal Bone of Right Hand With Routine Healing Gallbladder Polyp Allergies Localized Osteoporosis Without Current Pathological Fracture Gerd (Gastroesophageal Reflux Disease) Primary Hyperparathyroidism (Hcc) Social History Tobacco Use Smoking status: Former Current packs/day: 0.00 Average packs/day: 0.7 packs/day for 20.0 years (14.0 ttl pk-yrs) Types: Cigarettes Start date: 1984 Quit date: 2004 Years since quittin.8 Smokeless tobacco: Never Vaping Use Vaping status: Never Used Substance Use Topics Alcohol use: Yes Comment: 6 beers on Monday during football Drug use: No Current Outpatient Medications Medication Sig loratadine-pseudoephedr ine ER (CLARITIN-D 24) 10-240 mg Tb24 Take 1 tablet by mouth once daily. (Patient taking differently: Take 1 tablet by mouth once daily as needed.) omeprazole (PRILOSEC) 20 mg capsule Take 1 capsule by mouth daily before breakfast. 1/2 hr before meal. levothyroxine (SYNTHROID) 75 mcg tablet Take 1 tablet by mouth once daily. Take on empty stomach. For Thyroid lqmxplk-wujsjzjkr-gvtij in D3 500 mg-5 mcg (200 unit) per tablet Take 1 tablet by mouth once daily. (Patient taking differently: Take 1 tablet by mouth as needed.) Cyanocobalamin (VITAMIN B-12) 2,000 mcg TbER Take 1 tablet by mouth once daily. (Patient taking differently: Take 1 tablet by mouth once daily. 2500 mcg) No current facility-administered medications for this visit. Objective BP 132/74 (BP Site: Left Arm, BP Position: Sitting, BP Cuff Size: Large Adult) Pulse 72 Temp 37.1 ?C (98.8 ?F) (Temporal) Wt 71.6 kg (157 lb 13.6 oz) LMP 07/27/2009 BMI 26.68 kg/m? Physical Exam Constitutional: General: She is not in acute distress. Appearance: She is not ill-appearing or diaphoretic. HENT: Head: Normocephalic. Eyes: Extraocular Movements: Extraocular movements intact. Conjunctiva/sclera: Conjunctivae normal. Cardiovascular: Rate and Rhythm: Normal rate and regular rhythm. Pulses: Normal pulses. Heart sounds: No murmur heard. No gallop. Pulmonary: Breath sounds: Normal breath sounds. Abdominal: Palpations: Abdomen is soft. Tenderness: There is no abdominal tenderness. Comments: No bruit. Musculoskeletal: Right lower leg: No edema. Left lower leg: No edema. Lymphadenopathy: Cervical: No cervical adenopathy. Neurological: General: No focal deficit present. Mental Status: She is alert. Psychiatric: Mood and Affect: Mood normal. Assessment and Plan 1. Hypertension, unspecified type - ICD9: 401.9, ICD10: I10 (primary diagnosis) Paroxysmal. - CATECHOLAMINES FRA - Low sodium diet. 2. Palpitations - ICD9: 785.1, ICD10: R00.2 Monitor. - BASIC METABOLIC PANEL - CATECHOLAMINES FRA 3. Primary hyperparathyroidism (HCC) - ICD9: 252.01, ICD10: E21.0 - Recheck blood chemistry. 4. Hypothyroidism, unspecified type - ICD9: 244.9, ICD10: E03.9 - continue current dose of Synthroid. - THYROID STIMULATING HORMONE - T4 FREE/FREE THYROXINE 5. Screening for depression - ICD9: V79.0, ICD10: Z13.31 Neg. - DEPRESSION SCREENING 6. Encounter for screening examinati (more content not included)... Normal [facility] NATIVIDAD CONDE ([id number]) 1960 F Date Time Provider Department 03/18/24 TIA HERNANDEZ [facility] During your visit today, we recorded the following information about you: David Hunter RN 03/18/2024 11:59 AM Signed Pt reports she just left work, and had her BP checked while at work- 188/97. Reports she does not have history of high BP, and does not take BP medication. Reports her levothyroxine pill does not look the same as her last Rx and she is going into the pharmacy to have pharmacist check it to make sure it's levothyroxine 75 mcg. Reports she has had high BP since she started taking this pill. Patient believes her levothyroxine pill is causing the elevated BP. No CP. No palpitations. Sometimes has lightheadedness. Reports she is having eye surgery tomorrow and wants to see her pcp today to make sure her BP is ok. No openings in famp. Scheduled same day with Dr. Luna. Allergies As of Date: 03/18/2024 Noted Allergy Reaction LEVOTHYROXINE 09/18/2017 14 - Other: See Comments Comments: Bloating and Vuong Date Reviewed: 03/18/2024 Reviewed by: Mary Adair LPN - Fully Assessed Reason for Visit: Elevated BP [Other] Prescriptions as of 03/18/2024 - loratadine-pseudoephedr ine ER (CLARITIN-D 24) 10-240 mg Tb24 Take 1 tablet by mouth once daily. - omeprazole (PRILOSEC) 20 mg capsule Take 1 capsule by mouth daily before breakfast. 1/2 hr before meal. - levothyroxine (SYNTHROID) 75 mcg tablet Take 1 tablet by mouth once daily. Take on empty stomach. For Thyroid - mycngaz-ggiukvouv-lufbi in D3 500 mg-5 mcg (200 unit) per tablet Take 1 tablet by mouth once daily. - Cyanocobalamin (VITAMIN B-12) 2,000 mcg TbER Take 1 tablet by mouth once daily. Meds Comments as of 03/11/2022: Nicholas conde Problem List As Of Date 03/18/2024 Noted Resolved History of smoking [Z87.891] Cervical disc disease [M50.90] Abnormal mammogram, unspecified [R92.8] 05/22/2012 Multinodular goiter [E04.2] Osteopenia [M85.80] 02/16/2021 Nondisplaced fracture of base of fifth metacarp*07/21/2016 Gallbladder polyp [K82.4] 10/03/2018 Class 1 obesity due to excess calories without *10/03/2018 07/21/2021 Allergies [T78.40XA] 10/28/2020 Localized osteoporosis without current patholog*02/16/2021 GERD (gastroesophageal reflux disease) [K21.9] 07/21/2021 Primary hyperparathyroidism (HCC) [E21.0] 07/21/2021 Hypothyroidism [E03.9] 03/18/2024 Encounter Status:Closed by RICARDO LUNA on 03/18/24 Normal [facility] T4 Free SerPl-mCncon 024 Free T4 [Mass/Vol] 1.5 ng/dL Normal 0.9-1.7 [facility] Comment on above: Order Comment: Speci men Type: BLOOD SPECIMENOrdering Facility: [facility] Address: [address] [place] [address] Performed By: #### 3 024-7, 3016-3, 01196-4 ####[facility] [id number] [place] [address] [place] TSH SerPl-aCncon 03-18-2024 TSH Qn 0.765 m[IU]/L Normal 0.270-4.200 [facility] Comment on above: Order Comment: Speci men Type: BLOOD SPECIMENOrdering Facility: [facility] Address: [address] [place] [address] Performed By: #### 3 024-7, 3016-3, 96781-4 ####[facility] [id number] [place] [address] [place] 12 Lead EKGon 03-06-2024 12 Lead EKG [facility] Cardiovascular Services [address] [place] [address] 12 Lead EKG 03/06/24 1041 MR#: [id number] Acct: [id number] Name: NATIVIDAD CONDE Rep #: [id number] : 1960 63 From: Antonio Campbell MD Attending Dr: Status: DEP ER Ordering Dr: Jamin García DO Date: 03/06/24 Location: ED Sex: F C Admitted: Test Reason : PALP Blood Pressure : / mmHG Vent. Rate : 064 BPM Atrial Rate : 064 BPM P-R Int : 180 ms QRS Dur : 090 ms QT Int : 412 ms P-R-T Axes : 057 050 059 degrees QTc Int : 425 ms Normal sinus rhythm Normal ECG Confirmed by NARENDRA SMALL, ANTONIO ([id number]), editorial specialist CELESTE BRANCH ([id number]) on 03/07/2024 9:12:16 AM Referred By: Confirmed By:ANTONIO CAMPBELL MD 03/07/24911 Date Antonio Campbell MD CC: Dr. Tia Hernandez MD; Dr. Jamin García DO Signed Normal [facility] Basic Metabolic Profile (BMP )on 03-06-2024 BUN/CRE 21.9 RATIO High 10-20 [facility] Comment on above: Order Comment: 'TROP ' Serial specimen #1, #2 or #3: 1 Performed By: #### L 500.2500, L501.4020, L100.0100 #### [facility] [address] [place], [address] CA,Total 8.7 mg/dL Normal 8.5-10.1 [facility] Comment on above: Order Comment: 'TROP ' Serial specimen #1, #2 or #3: 1 Performed By: #### L 500.2500, L501.4020, L100.0100 #### [facility] [address] [place], [address] Chloride [Moles/Vol] 108 mmol/L High 98-107 [facility] Comment on above: Order Comment: 'TROP ' Serial specimen #1, #2 or #3: 1 Performed By: #### L 500.2500, L501.4020, L100.0100 #### [facility] [address] [place], [address] CO2 [Moles/Vol] 25.0 mmol/L Normal 21.0-32.0 [facility] Comment on above: Order Comment: 'TROP ' Serial specimen #1, #2 or #3: 1 Performed By: #### L 500.2500, L501.4020, L100.0100 #### [facility] [address] [place], [address] Creatinine [Mass/Vol] 0.68 mg/dL Normal 0.55-1.02 [facility] Comment on above: Order Comment: 'TROP ' Serial specimen #1, #2 or #3: 1 Result Comment: The validity of the calculated GFR GFRAA in patients over 70 years has not been determined. Clinical correlation is essential. Performed By: #### L 500.2500, L501.4020, L100.0100 #### [facility] [address] [place], [address] ECRCL 81.96 ml/min Normal [facility] Comment on above: Order Comment: 'TROP ' Serial specimen #1, #2 or #3: 1 Performed By: #### L 500.2500, L501.4020, L100.0100 #### [facility] [address] [place], [address] EST GFR - AA 112 mL/min Normal >60 [facility] Comment on above: Order Comment: 'TROP ' Serial specimen #1, #2 or #3: 1 Result Comment: Afri can [place] GFR Calc Performed By: #### L 500.2500, L501.4020, L100.0100 #### [facility] [address] [place], [address] GAP 4 Low 5-15 [facility] Comment on above: Order Comment: 'TROP ' Serial specimen #1, #2 or #3: 1 Performed By: #### L 500.2500, L501.4020, L100.0100 #### [facility] [address] [place], [address] GFR/1.73 sq M.predicted among non-blacks MDRD (S/P/Bld) [Vol rate/Area] 92 mL/min/{1.73_m2} Normal >60 [facility] Comment on above: Order Comment: 'TROP ' Serial specimen #1, #2 or #3: 1 Result Comment: Non- GFR Calc Performed By: #### L 500.2500, L501.4020, L100.0100 #### [facility] [address] [place], [address] Glucose [Mass/Vol] 105 mg/dL Normal 74-106 [facility] Comment on above: Order Comment: 'TROP ' Serial specimen #1, #2 or #3: 1 Result Comment: Fast ing Glucose result from 100 to 125 mg/dL suggests IMPAIRED HOMEOSTASIS per A.D.A. criteria. Performed By: #### L 500.2500, L501.4020, L100.0100 #### [facility] [address] [place], [address] Potassium [Moles/Vol] 3.9 mmol/L Normal 3.5-5.1 [facility] Comment on above: Order Comment: 'TROP ' Serial specimen #1, #2 or #3: 1 Performed By: #### L 500.2500, L501.4020, L100.0100 #### [facility] [address] [place], [address] Sodium [Moles/Vol] 138 mmol/L Normal 136-145 [facility] Comment on above: Order Comment: 'TROP ' Serial specimen #1, #2 or #3: 1 Performed By: #### L 500.2500, L501.4020, L100.0100 #### [facility] [address] [place], [address] Urea nitrogen [Mass/Vol] 15 mg/dL Normal 7-18 [facility] Comment on above: Order Comment: 'TROP ' Serial specimen #1, #2 or #3: 1 Performed By: #### L 500.2500, L501.4020, L100.0100 #### [facility] [address] [place], [address] CBC W/Diff, Automatedon 10- Absolute Lymph 1.75 X10 3/uL Normal 0.83-4.51 [facility] Comment on above: Performed By: #### L 500.2500, L501.4020, L100.0100 #### [facility] [address] [place], [address] Absolute Neut 4.7 X10 3/uL Normal 2.0-7.7 [facility] Comment on above: Performed By: #### L 500.2500, L501.4020, L100.0100 #### [facility] [address] [place], [address] Basophils/100 WBC (Bld) 0.4 % Normal 0-1 [facility] Comment on above: Performed By: #### L 500.2500, L501.4020, L100.0100 #### [facility] [address] [place], [address] Eosinophils/100 WBC (Bld) 1.1 % Normal 0-5 [facility] Comment on above: Performed By: #### L 500.2500, L501.4020, L100.0100 #### [facility] [address] [place], [address] Erythrocyte distribution width (RBC) [Ratio] 13.1 % Normal 11.6-14.6 [facility] Comment on above: Performed By: #### L 500.2500, L501.4020, L100.0100 #### [facility] [address] [place], [address] Hematocrit (Bld) [Volume fraction] 41.7 % Normal 37-47 [facility] Comment on above: Performed By: #### L 500.2500, L501.4020, L100.0100 #### [facility] [address] [place], [address] Hemoglobin (Bld) [Mass/Vol] 13.5 g/dL Normal 12.0-15.0 [facility] Comment on above: Performed By: #### L 500.2500, L501.4020, L100.0100 #### [facility] [address] [place], [address] IG% 0.300 Normal 0.0-0.9 [facility] Comment on above: Result Comment: IG% - Immature Granulocytes (promyelocytes, myelocytes and metamyelocytes) > 1% indicates that a LEFT SHIFT is Present. Performed By: #### L 500.2500, L501.4020, L100.0100 #### [facility] [address] [place], [address] Lymphocytes/100 WBC (Bld) 24.7 % Normal 19-41 [facility] Comment on above: Performed By: #### L 500.2500, L501.4020, L100.0100 #### [facility] [address] [place], [address] MCH (RBC) [Entitic mass] 29.8 pg Normal 27.0-32.0 [facility] Comment on above: Performed By: #### L 500.2500, L501.4020, L100.0100 #### [facility] [address] [place], [address] MCHC (RBC) [Mass/Vol] 32.4 g/dL Normal 32-36 [facility] Comment on above: Performed By: #### L 500.2500, L501.4020, L100.0100 #### [facility] [address] [place], [address] MCV (RBC) [Entitic vol] 92.1 fL Normal 81-99 [facility] Comment on above: Performed By: #### L 500.2500, L501.4020, L100.0100 #### [facility] [address] [place], [address] Monocytes/100 WBC (Bld) 7.1 % Normal 0-10 [facility] Comment on above: Performed By: #### L 500.2500, L501.4020, L100.0100 #### [facility] [address] [place], [address] Neutrophils/100 WBC (Bld) 66.4 % Normal 47-70 [facility] Comment on above: Performed By: #### L 500.2500, L501.4020, L100.0100 #### [facility] [address] [place], [address] Nucleated RBC (Bld) [#/Vol] 0 10*3/uL Normal 0-5 [facility] Comment on above: Performed By: #### L 500.2500, L501.4020, L100.0100 #### [facility] [address] [place], [address] Platelet mean volume (Bld) [Entitic vol] 10.0 fL Normal 6.2-12.0 [facility] Comment on above: Performed By: #### L 500.2500, L501.4020, L100.0100 #### [facility] [address] [place], [address] Platelets (Bld) [#/Vol] 291 10*3/uL Normal 150-450 [facility] Comment on above: Performed By: #### L 500.2500, L501.4020, L100.0100 #### [facility] [address] [place], [address] RBC (Bld) [#/Vol] 4.53 10*6/uL Normal 4.2-5.4 [facility] Comment on above: Performed By: #### L 500.2500, L501.4020, L100.0100 #### [facility] [address] [place], [address] RDW SD 44.0 fl High 35.1-43.9 [facility] Comment on above: Performed By: #### L 500.2500, L501.4020, L100.0100 #### [facility] [address] [place], [address] WBC (Bld) [#/Vol] 7.1 10*3/uL Normal 4.4-11.0 [facility] Comment on above: Performed By: #### L 500.2500, L501.4020, L100.0100 #### [facility] [address] [place], [address] Emergency Department Summary on 03-06-2024 Emergency Department Summary [facility] Medical Records Department [address] [facility] [place] [address] Emergency Department Summary 03/06/24 MR#: [id number] Acct: [id number] Name: NATIVIDAD CONDE Rep #: [id number] : 1960 63 From: Jamin García DO PCP: Dr. Tia Hernandez MD Status:DEP ER Location: ED HPI History of Present Illness Chief Complaint: Dizziness Detail of Chief Complaint: Lightheadedness and hypertension Informant: patient Narrative Narrative: Patient presents to the emergency department complaint of feeling lightheaded. Patient also had some palpitations while at work. Patient states that she was seated at work when she started feeling a little lightheaded and lasted a few seconds and then she felt like maybe her heart was skipping beats. Patient then stood up to get something and again felt lightheaded. They checked her blood pressure at work and it was 230 systolic which is unusual for her. Last time she had a blood pressure check was in the office of her primary care physician about 6 months ago and it was 130s over 70s. Patient does not take blood pressure medications. She denies chest pain or shortness of breath. Denies recent illness. PFSH PFS Home Medications ???Medication ???Instructions ???Recorded ???Last Taken ???Type cyanocobalamin (vitamin B-12) 1,500 mcg PO DAILY 05/04/17 Unknown History 2,000 mcg tablet loratadine 10 mg tablet (Claritin) 10 mg PO DAILY 05/04/17 Unknown History lorazepam 1 mg tablet (Ativan) 1 mg PO TID PRN anxiety #10 tabs 03/06/24 Unknown Rx Allergy/AdvReac Type Severity Reaction Status Date / Time No Known Allergies Allergy Verified 05/04/17 01:09 Social History Smoking Status: Former smoker ROS ROS ED Review of Systems ROS Unobtainable: other Constitutional Constitutional ED: Reports lethargy; Denies chills, fever(s), sweats or weight loss Eyes Eyes: Denies blurry vision, change in vision or diplopia ENT ENT ED: Denies rhinorrhea or sore throat Cardiovascular Cardiovascular: Reports palpitations; Denies chest pain, orthopnea or racing heartbeat Respiratory/Chest Respiratory/Chest: Denies cough, dyspnea, dyspnea on exertion, orthopnea or sputum Gastrointestinal Gastrointestinal: Denies abdominal pain, diarrhea, nausea or vomiting Genitourinary Genitourinary ED: Denies dysuria, hematuria or urinary frequency Musculoskeletal Musculoskeletal: Denies arthralgias, back pain, myalgias or neck pain Integumentary Denies abscess, Abrasions or rash Neurologic Neurologic: Reports other Details: Dizziness ; Denies headache(s) or weakness Psychiatric Psychiatric: Denies anxiety, depression or suicidal thoughts Endocrine Endocrinology: Denies polydipsia, polyphagia or polyuria Hematologic/Lymphatic Hematologic/Lymphatic: Denies easy bleeding, easy bruising or lymphadenopathy Allergic/Immunologic Allergic/Immunologic ED: Denies mouth swelling, tongue swelling or urticaria EXAM Physical Exam Const Vital Signs: 03/06/24 10:35 03/06/24 11:34 03/06/24 11:53 Temperature 97.2 F L Temperature Source Temporal Pulse Rate 64 78 Pulse Rate [Lying] 56 L Pulse Rate [Sitting (for 1 minute prior to obtaining)] 70 Pulse Rate [Standing (for 1 minute prior to obtaining)] 74 Respiratory Rate 16 20 H Blood Pressure 235/79 H 163/85 H Blood Pressure [Lying] 166/71 H Blood Pressure [Sitting (for 1 minute prior to obtaining)] 180/101 H Blood Pressure [Standing (for 1 minute prior to obtaining)] 199/102 H Blood Pressure Mean 131 111 Blood Pressure Mean [Lying] 102 Blood Pressure Mean [Sitting (for 1 minute prior to obtaining)] 127 Blood Pressure Mean [Standing (for 1 minute prior to obtaining)] 134 Pulse Ox 100 96 Oxygen Delivery Method Room Air Room Air 03/06/24 12:00 03/06/24 13:00 Temperature Temperature Source Pulse Rate 75 65 Pulse Rate [Lying] Pulse Rate [Sitting (for 1 minute prior to obtaining)] Pulse Rate [Standing (for 1 minute prior to obtaining)] Respiratory Rate 16 12 Blood Pressure 199/102 H 157/74 H Blood Pressure [Lying] Blood Pressure [Sitting (for 1 minute prior to obtaining)] Blood Pressure [Standing (for 1 minute prior to obtaining)] Blood Pressure Mean 134 101 Blood Pressure Mean [Lying] Blood Pressure Mean [Sitting (for 1 minute prior to obtaining)] Blood Pressure Mean [Standing (for 1 minute prior to obtaining)] Pulse Ox 96 96 Oxygen Delivery Method Room Air Room Air Positive well nourished and well developed General Appearance ED: well developed and NAD HEENT Reports TM's clear and moist mucous membranes normocephalic and atraumatic; Negative for trauma or tenderness Tympanic Membrane ED: Yes TM's clear Eyes PERRL and EOMs intact bilaterally General Eye ED: Negative for pale (more content not included)... Normal [facility] L501.4020on 03-06-2024 TROPONIN-I HS 7 pg/mL Normal 3.0-54.0 [facility] Comment on above: Order Comment: 'TROP ' Serial specimen #1, #2 or #3: 1 Result Comment: Plea se Note: New Test Units and Gender Specific Reference Ranges. For more information see Policy Stat Procedure [place] High Sensitivity Troponin (TNIH) and attachments. Performed By: #### L 500.2500, L501.4020, L100.0100 #### [facility] [address] [place], [address] Urinalysis, Completeon 03-06 BACTERIA 0 SEEN Normal None Seen [facility] Comment on above: Order Comment: CLEAN CATCH Performed By: #### L 400.0001 #### [facility] [address] [place], [address] EPI,SQUAMOUS 0 SEEN Normal 5-10 [facility] Comment on above: Order Comment: CLEAN CATCH Performed By: #### L 400.0001 #### [facility] [address] [place], [address] Mucus Ql (Urine sed) 0 SEEN Normal [facility] Comment on above: Order Comment: CLEAN CATCH Performed By: #### L 400.0001 #### [facility] [address] [place], [address] RBC 0 SEEN Normal 0-5 [facility] Comment on above: Order Comment: CLEAN CATCH Performed By: #### L 400.0001 #### [facility] [address] [place], [address] WBC 0 SEEN Normal 0-5 [facility] Comment on above: Order Comment: CLEAN CATCH Performed By: #### L 400.0001 #### [facility] [address] [place], [address] CNPNon [facility] NATIVIDAD CONDE ([id number]) 1960 F Date Time Provider Department 11/04/23 TIA HERNANDEZ [facility] During your visit today, we recorded the following information about you: Smitha Yoder LPN 11/04/2023 10:08 AM Addendum Type of form: Intermittent FMLA forms for Employer [email or web address] for pt's Daughter and Spouse. (Also documented in there chart) Form received via walk in When form is completed, Fax to [phone]. Call pt to see if she wants to brick picker originals. Form has been forwarded to ROSA Bahkta Mark D, MD 11/14/2023 5:01 PM Signed Forms done MD Rodo Moser Kathryn, [place] 11/17/2023 8:20 AM Signed Forms faxed to [facility] [employer] ATTN: Lula Barrera at [phone]. KARISHMA Barba Rilee, [place] 11/21/2023 10:51 AM Signed stopped in office to pick this up for pt. Copy made for records. Marilynn Salas MA Allergies As of Date: 11/04/2023 Noted Allergy Reaction LEVOTHYROXINE 09/18/2017 14 - Other: See Comments Comments: Bloating and Vuong Date Reviewed: 06/09/2023 Reviewed by: Marilynn Salas MA - Fully Assessed Reason for Visit: Forms [473] Cmt: FMLA Prescriptions as of 11/21/2023 - omeprazole (PRILOSEC) 20 mg capsule Take 1 capsule by mouth daily before breakfast. 1/2 hr before meal. - levothyroxine (SYNTHROID) 75 mcg tablet Take 1 tablet by mouth once daily. Take on empty stomach. For Thyroid - loratadine-pseudoephedr ine ER (CLARITIN-D 24) 10-240 mg Tb24 Take 1 tablet by mouth once daily. - zlijvvo-lzlhokryk-wkwmc in D3 500 mg-5 mcg (200 unit) per tablet Take 1 tablet by mouth once daily. - Cyanocobalamin (VITAMIN B-12) 2,000 mcg TbER Take 1 tablet by mouth once daily. Meds Comments as of 03/11/2022: Nicholas villelan Problem List As Of Date 11/04/2023 Noted Resolved History of smoking [Z87.891] Cervical disc disease [M50.90] Abnormal mammogram, unspecified [R92.8] 05/22/2012 Multinodular goiter [E04.2] Osteopenia [M85.80] 02/16/2021 Nondisplaced fracture of base of fifth metacarp*07/21/2016 Gallbladder polyp [K82.4] 10/03/2018 Class 1 obesity due to excess calories without *10/03/2018 07/21/2021 Allergies [T78.40XA] 10/28/2020 Localized osteoporosis without current patholog*02/16/2021 GERD (gastroesophageal reflux disease) [K21.9] 07/21/2021 Primary hyperparathyroidism (HCC) [E21.0] 07/21/2021 Encounter Status:Closed by LORIE KOEHLER on 11/17/23 Normal [facility] XR Pelvis and Hip - right AP and Lateral frogon 06-09-2023 IMPRESSION: No acute bony finding. No evidence of arthropathy. Solar [employer] Advisor: SWAPNA Transcribe Date/Time: Jun 09 2023 12:46P Dictated by : TIA CLEMONS MD This examination was interpreted and the report reviewed and electronically signed by: TIA CLEMONS MD on Jun 09 2023 12:47PM [facility] DIVISION OF RADIOLOGY * * *Final Report* * * DATE OF EXAM: Jun 09 2023 8:52AM WOX 5352 - XR HIP 3V PELV+ AP/LAT RT / PROCEDURE REASON: multiple diagnoses * * * * Physician Interpretation * * * * Pelvis/RIGHT hip HISTORY: 63 years old Clinical information: Pain of right thigh Pain of right hip Chronic midline low back pain without sciatica Chronic midline low back pain without sciatica Pain in proximal right femur/right hip after fall in april TECHNIQUE: Images: XR HIP 3V PELV+ AP/LAT RT Comparison: None. RESULT: Findings: No fracture or dislocation is evident. Right hip joint appears maintained. Sacroiliac joints are unremarkable. DIVISION OF RADIOLOGY Provider, [facility] - 06/09/2023 * * *Final Report* * * DATE OF EXAM: Jun 09 2023 8:52AM WOX 5352 - XR HIP 3V PELV+ AP/LAT RT / PROCEDURE REASON: multiple diagnoses * * * * Physician Interpretation * * * * Pelvis/RIGHT hip HISTORY: 63 years old Clinical information: Pain of right thigh Pain of right hip Chronic midline low back pain without sciatica Chronic midline low back pain without sciatica Pain in proximal right femur/right hip after fall in april TECHNIQUE: Images: XR HIP 3V PELV+ AP/LAT RT Comparison: None. RESULT: Findings: No fracture or dislocation is evident. Right hip joint appears maintained. Sacroiliac joints are unremarkable. IMPRESSION IMPRESSION: No acute bony finding. No evidence of arthropathy. Solar [employer] Advisor: SWAPNA Transcribe Date/Time: Jun 09 2023 12:46P Dictated by : TIA CLEMONS MD This examination was interpreted and the report reviewed and electronically signed by: TIA CLEMONS MD on Jun 09 2023 12:47PM [facility] Radiology Study observation (narrative) [facility] XR Pelvis and Hip - right AP and Lateral frogOrdered By: Ccf Provider on 06-09-2023 [facility] US THYROID/PARATHYROIDon [facility] CBC W Auto Differential pane l (Bld)on 01-10-2023 Basophils (Bld) [#/Vol] 0.05 10*3/uL <0.11 k/uL [facility] Basophils/100 WBC (Bld) 0.8 % [facility] Differential cell count method Nom (Bld) Auto [facility] Eosinophils (Bld) [#/Vol] 0.11 10*3/uL <0.46 k/uL [facility] Eosinophils/100 WBC (Bld) 1.7 % [facility] Erythrocyte distribution width (RBC) [Ratio] 13.1 % 11.5 - 15.0 % [facility] Hematocrit (Bld) [Volume fraction] 40.5 % 36.0 - 46.0 % [facility] Hemoglobin (Bld) [Mass/Vol] 12.8 g/dL 11.5 - 15.5 g/dL [facility] Immature granulocytes (Bld) [#/Vol] <0.10 k/uL [facility] Immature granulocytes/100 WBC (Bld) 0.2 % [facility] Lymphocytes (Bld) [#/Vol] 2.06 10*3/uL 1.00 - 4.00 k/uL [facility] Lymphocytes/100 WBC (Bld) 31.3 % [facility] MCH (RBC) [Entitic mass] 29.4 pg 26.0 - 34.0 pg [facility] MCHC (RBC) [Mass/Vol] 31.6 g/dL 30.5 - 36.0 g/dL [facility] MCV (RBC) [Entitic vol] 92.9 fL 80.0 - 100.0 fL [facility] Monocytes (Bld) [#/Vol] 0.44 10*3/uL <0.87 k/uL [facility] Monocytes/100 WBC (Bld) 6.7 % [facility] Neutrophils (Bld) [#/Vol] 3.92 10*3/uL 1.45 - 7.50 k/uL [facility] Neutrophils/100 WBC (Bld) 59.3 % [facility] Nucleated RBC (Bld) [#/Vol] <0.01 k/uL [facility] Nucleated RBC/100 WBC (Bld) [Ratio] 0.0 /100 WBC [facility] Platelet mean volume (Bld) [Entitic vol] 11.0 fL 9.0 - 12.7 fL [facility] Platelets (Bld) [#/Vol] 296 10*3/uL 150 - 400 k/uL [facility] RBC (Bld) [#/Vol] 4.36 10*6/uL 3.90 - 5.2 0 m/uL [facility] WBC (Bld) [#/Vol] 6.59 10*3/uL 3.70 - 11. 00 k/uL [facility] CT NECK SOFT TISSUE W IVCONo n 01-04-2023 [facility] CREATININE [facility] 12-23-2022 Creatinine [Mass/Vol] 0.67 mg/dL 0.58 - 0.96 mg/dL [facility] Estimated Glomerular Filtration Rate 100 mL/min/1.73m >=60 mL/min/1.73m [facility] US HEAD/NECK SOFT TISSUE OTH Ngozi 12-14-2022 [facility] CALCIUM IONIZED [facility] 09-15-19 Calcium.ionized (Bld) [Mass/Vol] 1.32 mmol/L High 1.08 - 1.30 mmol/L [facility] Calcium.ionized adjusted to pH 7.4 (Bld) [Moles/Vol] 1.28 mmol/L 1.08 - 1.30 mmol/L [facility] PTH INTACT Don 09-14-2021 Parathyrin.intact [Mass/Vol] 57 pg/mL 15 - 65 pg/mL [facility] VITAMIN D 25 HYDROXYon 09-14 25-hydroxyvitamin D3 [Mass/Vol] 23.6 ng/mL Low 31.0 - 80.0 ng/mL [facility] ANES POSTPROC EVALon 022 ANES POSTPROC EVAL HNO ID: [id number] Author: Dimitri Canales MD Service: Anesthesiology Author Type: Anesthesiologist Type: Anesthesia Postprocedure Evaluation Filed: 08/10/2021 3:24 PM Note Text: POST ANESTHESIA EVALUATION NOTE : 1960 Procedure Summary Date: 08/03/21 Room / Location: OR / OR Anesthesia Start: 945 Anesthesia Stop: 1104 Procedures: EXPLORATION PARATHYROID (N/A Neck) SUSANNA INTRAOPERATIVE ULTRASOUND GUIDANCE (N/A Neck) VENIPUNCTURE AGE 3 YRS OR OLDER, NECESSITATING PHYSICIAN /QUALIFIED HCP SKILL, DIAG OR THERAPEUTIC (N/A Neck) Diagnosis: Primary hyperparathyroidism (HCC) (Primary hyperparathyroidism (HCC) [E21.0]) Surgeons: Gerard Wen MD Responsible Provider: Dimitri Canales MD Anesthesia Type: general ASA Status: 2 Anesthesia Type: general Airway Type: ETT Last Vitals Vitals Value Taken Time BP 123/67 08/04/21 0910 Temp 36.8 ?C (98.2 ?F) 08/04/21 0910 Pulse 63 08/04/21 0910 Resp 18 08/04/21 0910 SpO2 99 % 08/04/21 0910 Post Anesthesia Patient Status Patient Evaluation: PACU. PACU/ICU Patient Condition: stable. Anticipated Disposition: inpatient floor planned admission. Neurological Status: aware and responsive. Pulmonary Status: breathing comfortably on room air Airway Control: returned to baseline unsupported. Cardiovascular Status: stable. Pain Management: clinically adequate - multimodal analgesia pain management approach Postoperative Hydration: acceptable. Intraoperative Events: no significant anesthesia events Recommendation: continue current plan of care. Anesthesia Observations No Documentation SIGNATURE: Dimitri Canales MD PATIENT NAME: Natividad Conde DATE: August 10, 2021 TIME: 3:24 PM CSN: [id number] Normal [facility] Calcium SerPl-mCncon 022 Calcium [Mass/Vol] 9.5 mg/dL Normal 8.5-10.2 [facility] Comment on above: Order Comment: Speci [facility] Type: BLOOD SPECIMEN Ordering Facility: [facility] Address: [address] [place] [address] Performed By: #### 1 [id number] #### [facility] [place] [id number] [address] [place] [address] OF [facility] PTH INTACT BLDon 08-04-2021 Parathyrin.intact [Mass/Vol] 24 pg/mL Normal 15-65 [facility] Comment on above: Order Comment: Speci men Type: BLOOD SPECIMEN Ordering Facility: [facility] Address: [address] [place] [address] Performed By: #### P THI #### [facility] IA [id number] [address] [place] [address] OF [facility] ANES PRE-OPon 08-03-2021 ANES PRE-OP HNO ID: [id number] Author: Dimitri Canales MD Service: Anesthesiology Author Type: Anesthesiologist Type: Anesthesia Preprocedure Evaluation Filed: 08/03/2021 8:46 AM Note Text: ANESTHESIOLOGY DAY OF SURGERY NOTE : 1960 Procedure Information Date/Time: 08/03/21 1035 Procedure: EXPLORATION PARATHYROID (N/A Neck) - with Nervana Location: MM OR05 / MM OR Surgeons: Gerard Wen MD Estimated body mass index is 27.38 kg/m? as calculated from the following: Height as of 07/21/21: 163.8 cm (5' 4.5). Weight as of 07/21/21: 73.5 kg (162 lb). Most recent hematocrit and potassium results: Hematocrit 40.6 07/21/2021 Potassium 4.1 07/21/2021 Relevant Problems GI (+) GERD (gastroesophageal reflux disease) I - PHYSICAL EVALUATION AIRWAY Patient intubated: No. Mallampati: II. TM distance: >3 FB. Neck ROM: full ROM without neurological symptoms. Mouth opening: adequate. Short neck: no. Thick neck: no DENTAL Dental findings: teeth intact. Additional exam findings: no II - ANESTHESIA PLAN ASA Score: 2 Anesthetic Plan: general Airway type: ETT NPO Status: adequate Monitoring plan: Standard ASA. Postoperative analgesic plan: parenteral or oral opioids and multimodal analgesia. Patient / Surrogate agrees to blood products: yes DNR status not reviewed with patient and/or family prior to surgery. Significant changes in the patient condition since the History and Physical, not otherwise documented in primary service progress note: no. Potential Anesthesia issues that may suggest increased risk of complications or contraindication to planned procedure: none. Vitals Value Taken Time BP Pulse 55 08/03/21836 Resp 18 08/03/21836 Temp 35.9 ?C (96.7 ?F) 08/03/21836 SpO2 100 % 08/03/21836 Facility-Administered Medications as of 08/03/2021 Medication Dose Route Frequency - lidocaine 10 mg/mL (1 %) 1-2 mg injection (XYLOCAINE) 0.1-0.2 mL INTRADERMAL PRN - NaCl 0.9% iv infusion 75 mL/hr INTRAVENOUS CONTINUOUS Outpatient Medications as of 08/03/2021 Medication Sig - omeprazole (PRILOSEC) 20 mg capsule Take 1 capsule by mouth daily before breakfast. 1/2 hr before meal. - loratadine-pseudoephedr ine ER (CLARITIN-D 24) 10-240 mg Tb24 Take 1 tablet by mouth once daily. - Cyanocobalamin (VITAMIN B-12) 2,000 mcg TbER Take 1 tablet by mouth once daily. - LORATADINE ORAL Take 10 mg by mouth once daily. I have interviewed and examined the patient. I have reviewed the medical record and/or the pre-anesthesia evaluation, pertinent labs, and test results. This contains updated information obtained within 48 hours of Surgery/Procedure. SIGNATURE: Dimitri Canales MD PATIENT NAME: Natividad Conde DATE: August 03, 2021 TIME: 8:46 AM CSN: [id number] [facility] BRIEF OP NOTon 08-03-2021 BRIEF OP NOT HNO ID: [id number] Author: Yasmeen Pack MD Service: Endocrine Surgery Author Type: Physician Type: Brief Op Note Filed: 08/03/2021 10:57 AM Note Text: BRIEF OP NOTE LOG ID: [id number] Surgery/Procedure Date: 08/03/2021 Incision/Procedure Start Time: 10:13 AM Incision Close/Procedure End Time: 10:50 AM Surgeon(s)/Proceduralis t(s) and Lay Out Inspector(s): Surgeon(s) and Role: * Gerard Wen MD - Primary * aYsmeen Pack MD - Resident - Assisting Procedure(s): Parathyroidectomy, left lower Anesthesia: General Findings: Single adenoma Estimated Blood Loss: 5 mls Specimens: See below ID Type Source Tests Collected by Time Destination 1 : PRE PTH Blood BLOOD INTRAOPERATIVE PTH Gerard Wen MD 08/03/2021 10:24 AM 2 : POST PTH Blood BLOOD INTRAOPERATIVE PTH Gerard Wen MD 08/03/2021 10:40 AM A : Left lower Tissue PARATHYROID GLAND LEFT SURGICAL PATHOLOGY Gerard Wen MD 08/03/2021 10:29 AM Complications: None Pre-Op/Pre-Procedure Diagnosis: Primary Hyperparathyroidism. Post-Op/Post-Procedure Diagnosis: Same SIGNATURE: Yasmeen Pack MD PATIENT NAME: Natividad Conde DATE: August 03, 2021 TIME: 10:56 AM PAGER/CONTACT #: Normal [facility] INTRAOPERATIVE PTHon 022 INTRAOPERATIVE PTH 37 pg/mL Normal [address] [place] [address] Comment on above: Order Comment: Speci men Type: BLOOD SPECIMENOrdering Facility: [facility] Address: [address] [place] [address] Performed By: #### R IPTH ####[facility] [id number] [address] [place] INTRAOPERATIVE PTH 144 pg/mL High [address] [place] [address] Comment on above: Order Comment: Speci men Type: BLOOD SPECIMEN Ordering Facility: [facility] Address: [address] [place] [address] Performed By: #### R IPTH #### [facility] CLIA [id number] [address] [place] [address] [place] NURSING PROGon 08-03-2021 NURSING PROG HNO ID: [id number] Author: Celeste Hyman RN Service: ? Author Type: Registered Nurse Type: Nursing Progress Note Filed: 08/03/2021 6:55 PM Note Text: Nursing Progress Note Patient Name: Natividad Conde Patient Location: [id number] Daily Note:1811 Pt's anterior neck incision is slightly more edematous and bruised than directly after surgery. Incision and around incision is soft and pt denies any difficulty swallowing or breathing. Tianna RAIL LOADER to the unit to assess incision. Outlined bruised area with a skin marker. Yasmeen Pcak MD paged to make aware. This note was completed by: Celeste Hyman [facility] OPERATIVE NOon 08-03-2021 OPERATIVE NO HNO ID: [id number] Author: Gerard Wen MD Service: Endocrine Surgery Author Type: Physician Type: Operative Report Filed: 08/03/2021 11:24 AM Note Text: [facility] LOCATION OPERATIVE REPORT ATTENDING PHYSICIAN: Gerard Wen MD Natividad Conde [facility] DATE OF PROCEDURE: August 03, 2021 SURGEON: Gerard Wen MD GEOLOGICAL MANAGER: Yasmeen Pack MD PREOPERATIVE DIAGNOSIS: POSTOPERATIVE DIAGNOSIS: OPERATION: parathyroid exploration via left lateral approach; parathyroidectomy of the left lower parathyroid gland; re-operative cervical surgery; intraoperative venous sampling for parathyroid hormone measurement; intraoperative ultrasonography; ANESTHESIA: General. Incision/Procedure Start Time: 10:13 AM Incision Close/Procedure End Time: 10:50 AM COMPLICATIONS: None. ESTIMATED BLOOD LOSS: 5 mL SPECIMENS REMOVED: ID Type Source Tests Collected by Time Destination 1 : PRE PTH Blood BLOOD INTRAOPERATIVE PTH Gerard Wen MD 08/03/2021 10:24 AM 2 : POST PTH Blood BLOOD INTRAOPERATIVE PTH Gerard Wen MD 08/03/2021 10:40 AM A : Left lower Tissue PARATHYROID GLAND LEFT SURGICAL PATHOLOGY Gerard Wen MD 08/03/2021 10:29 AM HISTORY: Ms. Natividad Conde has primary hyperparathyroidism and is being taken to the operating room for parathyroid exploration. FINDINGS: An ultrasound was performed in the operation room and the images archived. The thyroid was normal in size and contained subcentimeter colloid cyst bilaterally. In the left lower neck was a hypervascular, hypoechoic structure measuring that was typical in appearance for an enlarged parathyroid gland adenoma. No worrisome lymphadenopathy was appreciated in either central neck compartment or jugular chain. At exploration, an enlarged left lower parathyroid gland was identified and removed. Post-excision intraoperative parathyroid hormone level decreased from 144 to 37. Pathology confirmed hypercellular parathyroid tissue of the excised gland. DESCRIPTION OF OPERATION: The patient was taken to the operating room, placed upon table in the supine position. After induction of general endotracheal anesthesia, a beanbag support was used to elevate the thoracic spine. The neck was gently hyperextended. Ultrasound evaluation was performed using an Aloka Alpha 6 ultrasound machine with high-frequency linear array small parts transducer. The findings were as noted above. The neck was sterilely prepped and draped. A 4 cm transverse incision was in a skin crease on the left side side of the neck. The incision was carried down through the skin and through the platysma. Small superior and inferior subplatysmal flaps were raised with Bovie electrocautery. The strap muscles were divided longitudinally from the left sternocleidomastoid muscle. The jugular vein and carotid artery were retracted laterally. The central neck was entered and an enlarged left lower parathyroid gland was identified in the left lower neck. A pre-excision parathyroid hormone level was obtained from the left anterior jugular vein. The left lower gland was subsequently removed. Ten minutes later, a post-excision intraoperative parathyroid hormone level was obtained from the left anterior jugular vein. The wound was irrigated and checked for hemostasis. The the division between the strap muscles and the sternocleidomastoid muscle were closed with individual layers of interrupted 4-0 Polysorb suture. The platysma was similarly approximated. The skin was approximated with the running 3-0 Prolene suture. The skin was sealed with Exofin glue and the suture removed after extubation. The patient tolerated the procedure well and was taken to recovery area. Dr. Gerard Wen served as primary surgeon and was scrubbed from skin incision to beginning of incision closure. As no qualified resident was available to help with this case, Dr. Pack was asked to assist with exposure, dissection, and closure. DRAINS: None. Gerard Wen MD Endocrine Surgery [facility] SURGICAL PATHOLOGYon 022 CASE REPORT [facility] Comment on above: Order Comment: Speci men Type: TISSUE SPECIMEN Ordering Facility: [facility] Address: [address] [place], [place] [id number] Result Comment: Surg ical Pathology Report Case: [id number] Authorizing Provider: Gerard Wen MD Collected: 08/03/2021 10:29 AM Ordering Location: [facility] Received: 08/03/2021 10:40 AM Pathologist: Felicia Jara MD Intraop: Radha Zeng MD Specimen: PARATHYROID GLAND LEFT, Left lower Performed By: #### S #### [facility] CLIA [id number] [address] [place] [address] [place] [facility] CLIA [id number] [address] [place] [address] [place] CLINICAL HISTORY parathyroidectomy of the left lower parathyroid gland [facility] Comment on above: Order Comment: Speci men Type: TISSUE SPECIMEN Ordering Facility: [facility] Address: [address] [place], [place] [id number] Performed By: #### S #### [facility] CLIA [id number] [address] [place] [address] [place] [facility] CLIA [id number] [address] [place] [address] [place] FINAL DIAGNOSIS [facility] Comment on above: Order Comment: Speci men Type: TISSUE SPECIMEN Ordering Facility: [facility] Address: [address] [place], [place] [phone] Result Comment: Left lower parathyroid gland, excision: - Hypercellular parathyroid gland tissue. JIMMY 08/05/2021 Performed By: #### S #### [facility] CLIA [id number] [address] [place] [address] OF [facility] CLIA [id number] [address] [place] [address] OF [facility] FINAL PERFORMING LAB [facility] Comment on above: Order Comment: Speci men Type: TISSUE SPECIMEN Ordering Facility: [facility] Address: [address] [place] [address] Result Comment: Diag nostic interpretation performed at [facility], [address] [place] [address] CLIA# [id number] [employer] Boat Mate: Cammy Callejas M.D. Performed By: #### S #### [facility] CLIA [id number] [address] [place] [address] LAB CLIA [id number] [address] [place] [address] GROSS DESCRIPTION [facility] Comment on above: Order Comment: Speci men Type: TISSUE SPECIMEN Ordering Facility: [facility] Address: [address] [place] [address] Result Comment: A. P ARATHYROID GLAND LEFT. Received fresh for intraoperative consultation labeled ???parathyroid gland left is a single ovoid red nodule of soft tissue (1.5 x 1.2 x 0.4 cm; 0.5 grams). The specimen is entirely submitted for frozen section evaluation as FSA1. MR 08/03/21 Gross examination performed at [facility], [address] [place] [address], [place] [address] CLIA# [id number] Performed By: #### S #### [facility] CLIA [id number] [address] [place] [address] OF [facility] CLIA [id number] [address] [place] [address] [place] INTRAOPERATIVE DIAGNOSIS Normal [facility] Comment on above: Order Comment: Speci men Type: TISSUE SPECIMEN Ordering Facility: [facility] Address: [address] [place], [place] [id number] Result Comment: A. P ARATHYROID GLAND LEFT. FSA1: Hypercellular parathyroid (Dr. Zeng) Intraoperative diagnosis performed at [facility], [address] [place] [address], [place] [address] CLIA# [id number] Performed By: #### S #### [facility] CLIA [id number] LAB CLIA [id number] [address] [place] [address] ANES Fabrice 10-15-2018 ANES POST HNO ID: [id number] Author: Edy Butts Service: Anesthesiology Author Type: Anesthesiologist Type: Anesthesia PostOp Filed: 10/15/2018 1:22 PM Note Text: POST ANESTHESIA EVALUATION NOTE SERVICE DATE: 10/15/2018 SERVICE TIME: 1100 : 1960 Vitals: 10/15/18 0643 10/15/18 0913 10/15/18 1057 Temp: 36.3 ?C (97.3 ?F) 36.6 ?C (97.9 ?F) 36.3 ?C (97.3 ?F) 10/15/18 1000 10/15/18 1015 10/15/18 1030 10/15/18 1057 BP: 141/71 160/72 161/74 160/81 10/15/18 1000 10/15/18 1015 10/15/18 1030 10/15/18 1057 Pulse: (!) 50 (!) 53 (!) 58 77 10/15/18 1000 10/15/18 1015 10/15/18 1030 10/15/18 1057 Resp: 14 12 16 16 10/15/18 1000 10/15/18 1015 10/15/18 1030 10/15/18 1057 SpO2: 99% 100% 95% 96% Validated Vital Signs: yes POST ANES STATUS: No apparent anesthetic complications. The patient is appropriately hydrated with stable respiratory and cardiovascular status. Patient has safe and adequate airway control. The patient has appropriate pain relief and no significant post operative nausea or vomiting. The patient has achieved baseline mental status. Further assessment by Anesthesia Service: None Other Remarks: SIGNATURE: Edy Butts MD PATIENT NAME: Natividad Conde DATE: October 15, 2018 TIME: 1:22 PM PAGER/CONTACT #: [phone] [facility] ANES PREOPon 10-15-2018 ANES PREOP HNO ID: [id number] Author: Edy Butts Service: Anesthesiology Author Type: Anesthesiologist Type: Anesthesia PreOp Filed: 10/15/2018 7:14 AM Note Text: ANESTHESIOLOGY DAY OF SURGERY NOTE SERVICE DATE: 10/15/2018 SERVICE TIME: 7:13 AM : 1960 Procedure(s) (LRB): LAPAROSCOPIC CHOLECYSTECTOMY (N/A) Surgeon(s): Marylu Souza Estimated body mass index is 30.43 kg/m? as calculated from the following: Height as of this encounter: 163.8 cm (5' 4.49). Weight as of this encounter: 81.6 kg (180 lb). Most recent hematocrit and potassium results: Hematocrit 41.5 09/07/2018 Potassium 4.2 09/07/2018 ANES DOS/PREOP NOTE: Vitals: 10/15/18 0643 BP: 177/87 Pulse: 64 Resp: 16 Temp: 36.3 ?C (97.3 ?F) SpO2: 97% Weight: 81.6 kg (180 lb) Height: 163.8 cm (5' 4.49) ACTIVE PROBLEM LIST History of Smoking Cervical Disc Disease Abnormal Mammogram, Unspecified Multinodular Goiter Osteopenia Nondisplaced Fracture of Base of Fifth Metacarpal Bone of Right Hand With Routine Healing Gallbladder Polyp Class 1 Obesity Due to Excess Calories Without Serious Comorbidity With Body Mass Index (Bmi) of 30.0 to 30.9 in Adult PAST MEDICAL HISTORY Diagnosis Date - Cervical disc disease - History of smoking - Multinodular goiter 04/2013 thyroiditis 04/2013 - Osteopenia 2011 PAST SURGICAL HISTORY Procedure Laterality Date - BX BREAST PERC NEED W/GUID 05/31/12 U/S needle core UOQ left breast, fibroadenoma and Phyllodes tumor - BX OF BREAST; INCISIONAL 07/05/12 left, Fibroadenoma - CERV SPINE FUSN,ANTER,BELOW C2 1996 - DELIVERY ONLY X 2 , low transverse - REMOVAL OF TONSILS,<12 Y/O Tonsillectomy - REVISE MEDIAN N/CARPAL TUNNEL SURG Carpal tunnel decomp Right hand FAMILY HISTORY Problem Relation Age of Onset - Diabetes Mother - Hypertension Mother - DVT Mother - Hypertension Father - Alcohol/Drug Father alcohol - Heart Maternal Grandmother hardening of the arteries - Osteoporosis Maternal Grandmother shrunk with age - Ischemic Heart Disease Maternal Grandfather 63 NM - Hypertension Maternal Aunt - Diabetes Maternal Aunt - Ischemic Heart Disease Brother 42 NM Social History: Social History Tobacco Use - Smoking status: Former Smoker Packs/day: 0.70 Years: 20.00 Pack years: 14.00 Types: Cigarettes Last attempt to quit: 2004 Years since quittin.4 - Smokeless tobacco: Never Used Substance Use Topics - Alcohol use: Yes Comment: 6 beers on Monday during football - Drug use: No No current facility-administered medications on file prior to encounter. Current Outpatient Medications on File Prior to Encounter: omeprazole (PRILOSEC) 20 mg capsule Take 1 capsule by mouth daily before breakfast. 1/2 hr before meal. LORATADINE ORAL Take 10 mg by mouth once daily. ergocalciferol, vitamin D2, (DRISDOL) 50,000 unit capsule Take 1 tablet by mouth twice weekly [id number], then decrease to 1 tablet weekly. meloxicam (MOBIC) 15 mg tablet Take 1 tablet by mouth once daily. Take with food. Cyanocobalamin (VITAMIN B-12) 2,000 mcg TbER Take 1 tablet by mouth once daily. Current Facility-Administered Medications Medication Dose Route Frequency Provider Last Rate Last Dose - lactated ringers infusion 30 mL/hr INTRAVENOUS CONTINUOUS Marylu Souza 30 mL/hr at 10/15/18 0700 30 mL/hr at 10/15/18 0700 - ceFAZolin iv piggyback 2 g in D5W (iso-osmotic) 100 mL (ANCEF) 2 g INTRAVENOUS Pre-Op Once Marylu Souza Allergies: ALLERGIES Allergen Reactions - Levothyroxine Other: See Comments Bloating and Vuong DOS EXAM: Adequate NPO Status: Yes Anesthetic Risks, Benefits, Alternatives, Personnel and Consent Discussed: Yes Patient agrees to proceed: Yes Previous Anesthesia: No history of adverse event Airway Assessment: MP 2; Neck ROM: Limited Flexion and Extension; Airway Evaluation: No significant abnormalities Symptoms of Sleep Apnea: None Dentition: Edentulous Additional Physical Exam: Lungs: Patient health status unchanged since recent history and physical. See history and physical for exam findings. Cardiac: Patient health status unchanged since recent history and physical. See history and physical for exam findings. Additional Pertinent Findings: N/A Blood Products: Not anticipated for this procedure Anesthetic Plan: General Anesthetic Monitoring: Standard ASA Monitors Pain Management Plan: Parenteral or Oral ASA Class: 2 Other Medical Problems: None Chronic Beta [place] medication administered within 24 hours: N/A I have interviewed and examined the patient. I have reviewed the medical record and/or the pre-anesthesia evaluation, pertinent labs, and test results. Significant changes in the patient's condition since the History and Physical, not otherwise documented in primary service progress notes: No This contains updated information obtained within 48 hours of Surgery/Procedure. SIGNATURE: Edy Butts MD PATIENT NAME: Natividad Conde DATE: October 15, 2018 TIME: 7:13 AM CSN: [id number] [facility] BRIEF OP NOTon 10-15-2018 BRIEF OP NOT HNO ID: [id number] Author: Marylu Souza Service: General Surgery Author Type: Physician Type: Brief Op Note Filed: 10/15/2018 9:04 AM Note Text: BRIEF OPERATIVE NOTATION FOR SURGICAL PROCEDURE. Natividad Conde 1960 [id number] female LOG ID: [id number] Surgery/Procedure Date: 10/15/2018 Incision/Procedure Start Time: 8:03 AM Incision Close/Procedure End Time: 8:56 AM Surgeon(s)/Proceduralis t(s) and Lay Out Inspector(s): Surgeon(s) and Role: * Marylu Souza - Primary Physician Lay Out Inspector: Sapna Fontenot REFERRING PHYSICIAN: Outpatient DEPT: STEVE PROVIDER: Aida POS: [id number] ANESTHESIA: General ASA CLASS: 2 - mild DIAGNOSIS: biliary colic PROCEDURE: LAPAROSCOPIC CHOLECYSTECTOMY WITH INTRAOPERATIVE CHOLEANGIOGRAM - [id number] IVF: 1200 EBL: 5 Specimens: gallbladder ADDITIONAL DIAGNOSES: FINDINGS: failed cholangiogram due to small duct COMPLICATIONS: None PMHx - PAST MEDICAL HISTORY Diagnosis Date - Cervical disc disease - History of smoking - Multinodular goiter 04/2013 thyroiditis 04/2013 - Osteopenia 2011 COMORBIDITIES - Obesity Post Op Occurrences - None Wound Classification - Clean Contaminated Operative note dictated in the dictation system. - [id number] Marylu Souza MD [facility] HISTORY PHYSICALon 9 HISTORY PHYSICAL HNO ID: [id number] Author: Marylu Souza Service: General Surgery Author Type: Physician Type: HANDP Filed: 10/15/2018 7:37 AM Note Text: UPDATED HISTORY AND PHYSICAL EXAMINATION SERVICE DATE: 10/15/2018 SERVICE TIME: 7:37 AM PHYSICAL EXAM MUST BE COMPLETED ON ADMISSION The History and Physical (completed in the past 30 days) has been reviewed and the patient has been examined. The contents accurately reflect the patient's condition with the following additions or revisions since the HANDP was completed. Examination indicates no changes. This HANDP can be found in the attached. SIGNATURE: Marylu Souza MD PATIENT NAME: Natividad Conde DATE: October 15, 2018 TIME: 7:37 AM PAGER: [facility] HISTORY PHYSICAL HNO ID: [id number] Author: Marylu Souza Service: General Surgery Author Type: Physician Type: HANDP Filed: 10/15/2018 7:37 AM Note Text: Natividad Conde 1960 ? ? REFERRING PHYSICIAN: Will Bryan ([facility]), AUG* ? CHIEF COMPLAINT: RUQ pain ? HPI: The patient is a 58 year old female presents with right upper quadrant abdominal pain. Patient describes pain, as occasional sharp, intermittent dull ache, that radiates to the back. She states that it doubles her over, because of the pain. US 08/28/18 IMPRESSION: Findings suggesting fatty infiltration of the liver, without focal hepatic lesion. Multiple gallbladder polyps, measuring up to 3 mm in size. ?No shadowing gallstone or convincing sonographic evidence for acute cholecystitis. ?No biliary dilation. ? She also notes thyroid problems. She has multinodular goiter, but recently noted to have elevated serum calcium and parathyroid hormone levels. Scheduled to see Dr. Friedman, gas plant technician in [place]. ? ? PAST MEDICAL HISTORY Diagnosis Date - Cervical disc disease ? - History of smoking ? - Multinodular goiter 04/2013 ? thyroiditis 04/2013 - Osteopenia 2011 ? PAST SURGICAL HISTORY Procedure Laterality Date - BX BREAST PERC NEED W/GUID ? 05/31/12 ? U/S needle core UOQ left breast, fibroadenoma and Phyllodes tumor - BX OF BREAST; INCISIONAL ? 07/05/12 ? left, Fibroadenoma - CERV SPINE FUSN,ANTER,BELOW C2 ? 1996 - DELIVERY ONLY ? X 2 ? , low transverse - REMOVAL OF TONSILS,<12 Y/O ? ? ? Tonsillectomy - REVISE MEDIAN N/CARPAL TUNNEL SURG ? ? ? Carpal tunnel decomp Right hand ? ? Current Outpatient Medications: ergocalciferol, vitamin D2, (DRISDOL) 50,000 unit capsule Take 1 tablet by mouth twice weekly [id number], then decrease to 1 tablet weekly. omeprazole (PRILOSEC) 20 mg capsule Take 1 capsule by mouth daily before breakfast. 1/2 hr before meal. meloxicam (MOBIC) 15 mg tablet Take 1 tablet by mouth once daily. Take with food. Cyanocobalamin (VITAMIN B-12) 2,000 mcg TbER Take 1 tablet by mouth once daily. LORATADINE ORAL Take 10 mg by mouth once daily. ranitidine (ZANTAC) 150 mg tablet Take 150 mg by mouth twice daily. ? ? ALLERGIES: Levothyroxine ? 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 2 daughters; 3 step-sons. Enjoys football. ? FAMILY HISTORY Problem Relation Age of Onset - Diabetes Mother ? - Hypertension Mother ? - DVT Mother ? - Hypertension Father ? - Alcohol/Drug Father ? ? alcohol - Heart Maternal Grandmother ? ? hardening of the arteries - Osteoporosis Maternal Grandmother ? ? shrunk with age - Ischemic Heart Disease Maternal Grandfather 63 ? NM - Hypertension Maternal Aunt ? - Diabetes Maternal Aunt ? - Ischemic Heart Disease Brother 42 ? NM ? ? REVIEW OF SYSTEMS: General: The patient denies fatigue, denies weight loss, notes weight gain, denies feeling hot, and denies feelings of cold. Eyes: The patient denies glaucoma, denies eye injury/surgery, does not wear glasses or contacts. Ear/Nose/Throat: The patient notes allergies, denies hayfever, denies ear infections, and denies bloody noses. Cardiovascular: The patient denies chest pain, denies heart disease, denies high blood pressure,denies cardiac stent, denies prior heart attack, denies irregular heart beat, denies high cholesterol, denies poor circulation, denies heart failure, other cardiac issues, denies claudication, denies cold feet, denies peripheral arterial stent. Respiratory: The patient denies tuberculosis, denies pneumonia, denies frequent cough, denies pulmonary embolism, denies shortness of breath, and denies coughing up blood. Gastrointestinal: The patient denies difficulty swallowing, denies acid reflux, denies ulcers, denies vomiting, denies jaundice/hepatitis, notes gallbladder problems, denies black or tarry stools, denies hemorrhoids, denies bleeding from rectum, denies diverticulitis, denies constipation, denies diarrhea, denies loss of stool control, and denies hernias. Kidney/Bladder: The patient denies kidney stones, denies urine infections, and denies bloody urine. Skin: The patient denies a history of skin cancer, denies bleeding/changing moles, and denies a history of skin rash. Neurologic: The patient denies a history of epilepsy/convulsions, denies headaches, denies head/spinal injuries, and denies stroke/TIA. Psychiatric: The patient denies psychiatric medications, denies depression, and denies voices, denies substance abuse. Endocrine: The patient denies thyroid disorders, denies diabetes, and denies hormonal problems. Hematologic: The patient denies a history of bruising, denies bleeding, and denies anemia, denies blood clots. Infections: The patient denies a history of measles and mumps, denies rheumatic fever, and denies sexually transmitted diseases. Musculoskeletal: The patient denies back pain/injury, denies back problems, denies sciatica, denies knee/foot trouble, denies arthritis, or denies gout. ? PHYSICAL EXAMINATION: General: The patient is 58 year old female, well nourished, well hydrated in no acute distress. The patient is oriented to time, place, and person. VITALS: Blood pressure 148/70, pulse 70, weight 81.2 kg (179 lb). Body mass index is 31.46 kg/m?. Head ? Normocephalic. EOM intact with sclera clear and no icterus noted. Mouth with mucus membranes moist. Neck - supple with no jugular venous distention noted. Trachea is midline. Lungs ? clear to auscultation.. Normal breath sounds. No rales/rhonchi/wheezing noted. No labored breathing noted, such as retractions. No cough heard. Heart ? normal S1 and S2 auscultated. No rubs/clicks/murmurs noted. Regular rate. Abdomen ? soft and benign. Tender in right upper quadrant but no peritoneal signs. Normal bowel sounds. No abdominal bruits noted. Extremities ? no pitting edema noted. Skin ? normal skin integrity. Neurological ? gait normal, no focal deficits noted Psych ? calm and appropriate RADIOLOGIC STUDIES: As Noted ? ? Assessment IMPRESSION: right upper quadrant abdominal pain - abnormal gallbladder ultrasound ? PLAN: I have discussed the above with the patient. I have offered laparoscopic cholecystectomy, possible cholangiograms, patient wants to have this done at [facility] by Dr. Souza I have explained the procedure to the patient. I have counseled the patient as to the risks of the procedure, including but not limited to: infection, bleeding, injury to any blood vessels/nerves, scar tissue, injury to any intraabdominal organs, injury to bowel/bladder, injury to the common bile duct/biliary tree, bile leakage, intraabdominal abscess/bleeding, hernias at incisional sites, wound infections, complications of anesthesia, etc. ? the patient understands. The patient wishes to proceed. With regard to her multinodular thyroid and possible primary hyperparathyroidism - patient will be evaluated by Dr. Friedman at [place]. ? I have answered all questions to the patient?s satisfaction and the patient has no further questions. . Diagnoses: (R10.11) Right upper quadrant abdominal pain (primary encounter diagnosis) (R93.2) Abnormal gallbladder ultrasound Return to Clinic: The patient is instructed to follow-up with me Dr. Souza or Celeste Edwards after the procedure ? I have confirmed and edited as necessary, the PFSH and ROS obtained by others. ? Edilia Metzger MD Normal [facility] NURSING PROGon 10-15-2018 Protein mass conc HNO ID: [id number] Author: Vera (Rn) ROSENDO Gray Service: ? Author Type: Registered Nurse Type: Nursing Progress Note Filed: 10/15/2018 10:57 AM Note Text: @1055 Pt ambulated to restroom with steady gait accompanied by RN. to pharmacy to get Rx. Pt states pain is tolerable and refuses offered pain meds. I actually feel pretty good. @1057 Pt voided and returned to bed. 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 SEX: F PATIENT TYPE: A HOSP SVC: GENS LOCATION: [facility] ATTENDING PHYSICIAN: MARYLU SOUZA CSN NUMBER: [id number] DATE OF SURGERY/PROCEDURE: 10/15/2018 INCISION/PROCEDURE START TIME: 8:03. INCISION CLOSE/PROCEDURE END TIME: 8:56. PREOPERATIVE DIAGNOSIS: Biliary colic. POSTOPERATIVE DIAGNOSIS: Biliary colic, failed intraoperative cholangiogram due to small cystic duct. SURGEON: Marylu Souza M.D. GEOLOGICAL MANAGER: Sapna Fontenot PA-C. SURGERY/PROCEDURE: Laparoscopic cholecystectomy with interoperative cholangiogram attempted. ANESTHESIA: General endotracheal. LOG ID NUMBER: [id number]. ANESTHESIOLOGIST: Dr. Butts. ASA: 2. IV FLUIDS: 1200 mL. EBL: 5 mL. URINE OUTPUT: No catheter. FINDINGS: As described above. SPECIMENS: Gallbladder. DRAINS: None. COMPLICATION: None. DISPOSITION: The patient was taken to PACU in stable condition. DESCRIPTION OF PROCEDURE: Sign-in in the holding area was performed, verifying patient, site, procedure, position, critical nursing information, VTE, and antibiotic prophylaxis. The patient received 2 g of Ancef and sequential compression devices. She was brought to the operative suite. Following induction of general anesthetic, the patient was prepped and draped in usual fashion. Time- out was performed verifying patient, site, procedure, and position. . Local anesthetic was injected below the umbilicus. Incision was made dissecting down to the level of the fascia. Two stay sutures were placed in the fascia. Incision was made at the fascia, and peritoneum was entered under direct visualization. Josefa trocar was inserted through a stay suture, and pneumoperitoneum to 15 mmHg was insufflated. Three 5-mm ports were placed into position. Visual inspection revealed adhesions of the gallbladder. Adhesions were taken down bluntly and sharply. Once this was performed, dissection was carried out in Calot triangle. As dissection was continued, a critical view of the neck of the gallbladder following into the cystic duct with no signs of aberrant ductal structures were seen. A clip was placed in the neck of the gallbladder-cystic duct junction, and a partial ductotomy was made. The cystic duct opening was noted to be very small. Attempts to insert the cholangiocath failed due to size of the duct. Attempts to open and dilate the cystic duct did not allow the cholangiocath to be inserted. At this point, the cholangiocatheter was failed since the critical view was seen. Two clips were placed on the cystic duct. Cystic duct was divided. Dissection was continued. Tissue with cystic artery was identified, double clipped proximally, single clipped singly and divided. Gallbladder was dissected free from the gallbladder fossa using electrocautery. The gallbladder was placed in Endobag and removed through the umbilical port site. 0 PDS [id number] sutures were placed on the port site defect. The gallbladder fossa was checked for hemostasis. With good hemostasis, the area was irrigated and aspirated clear. A 5 mm ports were removed under direct visualization with no signs of bleeding. Pneumoperitoneum was released. The umbilical trocar was removed. The umbilical fascia was secured. Skin was closed with interrupted 4-0 Biosyn subcuticular sutures. Steri-Strips dressings were applied. The patient tolerated the procedure well and was brought to the recovery room in stable condition. Marylu Souza M.D. RG:[id number] /[id number] [facility] PLAN OF CAREon 10-15-2018 PLAN OF CARE HNO ID: [id number] Author: Violeta Patricia (Manager Of Exhibitions And Collections) Service: Pharmacy Author Type: ? 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 Patient to use [facility] Bedside Delivery - YES Insurance Information as follows: 2. Insurance card on file - YES 3. Credit card for payment - YES PHARMACY BEDSIDE DELIVERY SERVICE Patient Name: Natividad Conde The marked outpatient medications were Filled at: [facility] and delivered to the patient's bedside to pharm p/u Medication List START taking these medications oxyCODONE-acetaminophen 5-325 mg tablet Commonly known as: PERCOCET Take 1 tablet by mouth every 6 hours as needed for Pain for up to 7 days. X CONTINUE taking these medications Cyanocobalamin 2,000 mcg Tber Commonly known as: VITAMIN B-12 Take 1 tablet by mouth once daily. ergocalciferol (vitamin D2) 50,000 unit capsule Commonly known as: DRISDOL Take 1 tablet by mouth twice weekly [id number], then decrease to 1 tablet weekly. LORATADINE ORAL meloxicam 15 mg tablet Commonly known as: MOBIC Take 1 tablet by mouth once daily. Take with food. omeprazole 20 mg capsule Commonly known as: PriLOSEC Take 1 capsule by mouth daily before breakfast. 1/2 hr before meal. You might also be taking other medications not listed above. If you have questions about any of your other medications, talk to the person who prescribed them or your Primary Care Provider. Violeta Patricia (Manager Of Exhibitions And Collections) PAGER: [phone] October 15, 2018 10:30 AM [facility] PT EDon 10-15-2018 PT ED HNO ID: [id number] Author: Leroy (Rn) ROSENDO Michel Service: Nursing Author Type: Registered Nurse Type: Patient Education Filed: 10/15/2018 6:46 AM Note Text: PRE OP LEARNING ASSESSMENT PROCEDURE/SURGERY: SURGERY: laparoscopic Cholecystectomy READINESS TO LEARN COGNITIVE ABILITY: Alert and oriented MOTIVATION TO LEARN: Eager FAMILY SUPPORT: High - Very involved in pt care PATIENT LEARNS BEST BY: Written Instruction - Hand-outs Verbal Instruction FACTORS AFFECTING LEARNING: None PHYSICAL LIMITATIONS AFFECTING LEARNING: None Electronically Signed By: Leroy Michel RN In Department: [facility] SURGERY Normal [facility] SURGICAL PATHOLOGYon 019 SURGICAL PATHOLOGY Specimen originated from [facility] Specimen #: [id number] Submitting Physician: MARYLU SOUZA MD FINAL DIAGNOSIS Gallbladder, cholecystectomy - Chronic cholecystitis with cholesterolosis. - Cholesterol polyp. LMY/collins/10/16/18 Phyllis Harris M.D. (Electronic Signature) SPECIMEN SUBMITTED A: GALLBLADDER CLINICAL DATA GALLBLADDER POLYP, LMP: PM LAPAROSCOPIC CHOLECYSTECTOMY; ATTEMPTED INTRAOPERATIVE CHOLANGIOGRAMS GROSS DESCRIPTION A. Received in formalin labeled gallbladder is a gallbladder measuring 6.7 x 2.5 x 2.0 cm. The outer serosal surface is baez-coronado, smooth and glistening. Situated adjacent to the cystic duct is a 0.3-cm nodule resembling a lymph node. Opening the specimen reveals a lumen containing bile. The mucosa is predominantly bile-stained and velvety. Multiple irregular slightly elevated baez-yellow areas are identified throughout the mucosa resembling possible remnant of cholesterol polyps. These structures measure less than 0.1 cm in greatest dimension and approach within 1.2 cm of the cystic duct margin. The underlying wall thickness measures 0.1 cm. Contract Accountant sections are submitted as follows: A1 cystic duct margin, cystic duct lymph node and cross sections of neck of gallbladder; A2 cross sections of body of gallbladder; A3 cross sections of fundus of gallbladder (all possible polypoid structures have been submitted). MLG/kmr 10/15/18 [place] [address] Date of Report: 10/16/2018 Date of Procedure: 10/15/2018 Date of Receipt: 10/15/2018 Submitted by: MARYLU SOUZA MD Location: [facility] Diagnostic interpretation performed at [place] [address]. CLIA Number: [id number] [facility] NURSING PROGon 10-11-2018 Protein mass conc HNO ID: [id number] Author: Afsaneh Darden) ROSENDO Kirkpatrick Service: ? Author Type: Registered Nurse Type: Nursing Progress Note Filed: 10/11/2018 2:50 PM Note Text: PACC Nurse Progress Note History AND Physical: PACC Visit Date: 10/03/18 Original HANDP Date: N/A ED visit Date: N/A Outside HANDP Scanned Date: N/A Labs Within Last 6 Months: CBC: Date 09/07/18 BMP/CMP: Date 09/07/18 Amylase,Lipase 09/07/18 Reviewed and accepted by provider Imaging Within Last 12 Months: See chart Cardiac Testing: N/A Last Menstrual Period: LMP Date: 07/27/09 Postmenopausal >1yr: No, S/P Hysterectomy: No BMI Percentile (PEDS): N/A Risk Assessment: N/A Anesthesia Review: N/A Narrative: N/A Pre-op Considerations: N/A Chart Check: COMPLETED Afsaneh Kirkpatrick RN October 11, 2018 2:49 PM [facility] HOSPon 09-14-2018 HOSP Patient:Avelina Conde cia MRN: Height:5' 4.5(1.638 m) Weight:180 lb (81.647 kg) Outpatient Medications as of 10/15/18: ergocalciferol, vitamin D2, (DRISDOL) 50,000 unit capsule omeprazole (PRILOSEC) 20 mg capsule meloxicam (MOBIC) 15 mg tablet Cyanocobalamin (VITAMIN B-12) 2,000 mcg TbER LORATADINE ORAL Admission/Clinic Administered Medications as of 10/15/18: lactated ringers infusion ceFAZolin iv piggyback 2 g in D5W (iso-osmotic) 100 mL (ANCEF) Problem List: History of smoking [Z87.891] Cervical disc disease [M50.90] Abnormal mammogram, unspecified [R92.8] Multinodular goiter [E04.2] Osteopenia [M85.80] Nondisplaced fracture of base of fifth metacarpal bone of right hand with routine healing [S62.346D] Gallbladder polyp [K82.4] Class 1 obesity due to excess calories without serious comorbidity with body mass index (BMI) of 30.0 to 30.9 in adult [E66.09, Z68.30] Allergies: Levothyroxine Date Verified: 10/15/18 Lab Values No results within the last 30 days for the following basenames: K,HCT Progress Notes ([facility]): Lorie Koehler Ma 10/02/2018 4:49 PM Signed Type of letter/form/fax request - FMLA Form received from pt on 1 floor and placed on MD desk () for completion. Completed form needs to be left at manager front office for patient pickup. Call when ready. Pt needs these forms completed for her employer to be able to be off if needed to help care for her , Michael Conde, due to his disability. He has not been able to work in the last year due to his pain. Route to [place] when form completed for processing Tia Hernandez MD 10/02/2018 5:20 PM Signed Form done MD Lorie Moser Ma 10/03/2018 9:14 AM Signed Forms at medical records. Copy made for our records. Pt notified. Lorie Koehler [facility] Vital Signs Date Time Vital Sign Value Performing Clinician Fernando sheffield 09-09-2024 09:19-0400 Diastolic blood pressure 76 mm[Hg] Checo Hall MD Work Phone: [facility] 09-09-2024 09:19-0400 Systolic blood pressure 138 mm[Hg] Checo Hall MD Work Phone: [facility] 08-16-2024 16:13-0400 Diastolic blood pressure 70 mm[Hg] Tia Hernandez MD Work Phone: [facility] 08-16-2024 16:13-0400 Systolic blood pressure 136 mm[Hg] Tia Hernandez MD Work Phone: [facility] 08-16-2024 16:09-0400 Body mass index (BMI) [Ratio] 26.64 kg/m2 Tia Hernandez MD Work Phone: [facility] 08-16-2024 16:09-0400 Body weight 71.5 kg Tia Hernandez MD Work Phone: [facility] 08-16-2024 16:09-0400 Heart rate 64 /min Tia Hernandez MD Work Phone: [facility] 08-16-2024 16:09-0400 Respiratory rate 16 /min Tia Hernandez MD Work Phone: [facility] 07-11-2024 13:26-0500 Body height 163.8 cm Tia Hernandez MD Work Phone: [facility] 07-11-2024 13:26-0500 Body mass index (BMI) [Ratio] 26.34 kg/m2 Tia Hernandez MD Work Phone: [facility] 07-11-2024 13:26-0500 Body weight 70.7 kg Tia Hernandez MD Work Phone: [facility] 07-11-2024 13:26-0500 Diastolic blood pressure 100 mm[Hg] Tia Hernandez MD Work Phone: [facility] 07-11-2024 13:26-0500 Heart rate 80 /min Tia Hrenandez MD Work Phone: [facility] 07-11-2024 13:26-0500 Respiratory rate 16 /min Tia Hernandez MD Work Phone: [facility] 07-11-2024 13:26-0500 Systolic blood pressure 170 mm[Hg] Tia Hernandez MD Work Phone: [facility] 03-18-2024 13:35-0500 Diastolic blood pressure 74 mm[Hg] Ricardo Luna MD Work Phone: [facility] 03-18-2024 13:35-0500 Heart rate 72 /min Ricardo Luna MD Work Phone: [facility] 03-18-2024 13:35-0500 Systolic blood pressure 132 mm[Hg] Ricardo Luna MD Work Phone: [facility] 03-18-2024 13:24-0500 Body mass index (BMI) [Ratio] 26.68 kg/m2 Ricardo Luna MD Work Phone: [facility] 03-18-2024 13:24-0500 Body temperature 98.8 [degF] Ricardo Luna MD Work Phone: [facility] 03-18-2024 13:24-0500 Body weight 71.6 kg Ricardo Luna MD Work Phone: [facility] 01-09-2023 15:45-0400 Diastolic blood pressure 88 mm[Hg] Tia Hernandez MD Work Phone: [facility] 01-09-2023 15:45-0400 Systolic blood pressure 148 mm[Hg] Tia Hernandez MD Work Phone: [facility] 01-09-2023 15:43-0400 Body weight 73.03 kg Tia Hernandez MD Work Phone: [facility] 01-09-2023 15:43-0400 Heart rate 78 /min Tia Hernandez MD Work Phone: [facility] 01-09-2023 15:43-0400 Respiratory rate 16 /min Tia Hernandez MD Work Phone: [facility] 12-23-2022 08:02-0400 Body weight 71.22 kg Miley Haagen BUSINESS SEGMENT MANAGER.FLAVORING OIL FILTERER Work Phone: [facility] 12-23-2022 08:02-0400 Diastolic blood pressure 80 mm[Hg] Miley Haagen BUSINESS SEGMENT MANAGER.FLAVORING OIL FILTERER Work Phone: [facility] 12-23-2022 08:02-0400 Heart rate 78 /min Miley Haagen BUSINESS SEGMENT MANAGER.FLAVORING OIL FILTERER Work Phone: [facility] 12-23-2022 08:02-0400 Respiratory rate 16 /min Miley Haagen BUSINESS SEGMENT MANAGER.FLAVORING OIL FILTERER Work Phone: [facility] 12-23-2022 08:02-0400 SaO2% (BldA) [Mass fraction] 97 % Miley Haagen BUSINESS SEGMENT MANAGER.FLAVORING OIL FILTERER Work Phone: [facility] 12-23-2022 08:02-0400 Systolic blood pressure 160 mm[Hg] Miley Haagen BUSINESS SEGMENT MANAGER.FLAVORING OIL FILTERER Work Phone: [facility] 12-12-2022 15:23-0400 Diastolic blood pressure 80 mm[Hg] Miley Haagen BUSINESS SEGMENT MANAGER.FLAVORING OIL FILTERER Work Phone: [facility] 12-12-2022 15:23-0400 Heart rate 66 /min Miley Haagen BUSINESS SEGMENT MANAGER.FLAVORING OIL FILTERER Work Phone: [facility] 12-12-2022 15:23-0400 Respiratory rate 16 /min Miley Haagen BUSINESS SEGMENT MANAGER.FLAVORING OIL FILTERER Work Phone: [facility] 12-12-2022 15:23-0400 SaO2% (BldA) [Mass fraction] 95 % Miley Haagen BUSINESS SEGMENT MANAGER.FLAVORING OIL FILTERER Work Phone: [facility] 12-12-2022 15:23-0400 Systolic blood pressure 168 mm[Hg] Miley Haagen BUSINESS SEGMENT MANAGER.FLAVORING OIL FILTERER Work Phone: [facility] 03-11-2022 16:13-0400 Diastolic blood pressure 86 mm[Hg] Tia Hernandez MD Work Phone: [facility] 03-11-2022 16:13-0400 Systolic blood pressure 138 mm[Hg] Tia Hernandez MD Work Phone: [facility] 03-11-2022 16:09-0400 Body weight 72.39 kg Tia Hernandez MD Work Phone: [facility] 03-11-2022 16:09-0400 Heart rate 80 /min Tia Hernandez MD Work Phone: [facility] 03-11-2022 16:09-0400 Respiratory rate 16 /min Tia Hernandez MD Work Phone: [facility] 11-30-2021 16:12-0400 Body weight 70.67 kg Tia Hernandez MD Work Phone: [facility] 11-30-2021 16:12-0400 Diastolic blood pressure 76 mm[Hg] Tia Hernandez MD Work Phone: [facility] 11-30-2021 16:12-0400 Heart rate 82 /min Tia Hernandez MD Work Phone: [facility] 11-30-2021 16:12-0400 Respiratory rate 16 /min Tia Hernandez MD Work Phone: [facility] 11-30-2021 16:12-0400 Systolic blood pressure 124 mm[Hg] Tia Hernandez MD Work Phone: [facility] 10-03-2021 10:47-0400 Body temperature 99 [degF] Emy Praisler-Wood BUSINESS SEGMENT MANAGER.FLAVORING OIL FILTERER Work Phone: [facility] 10-03-2021 10:47-0400 Body weight 71.22 kg Emy Praisler-Wood BUSINESS SEGMENT MANAGER.FLAVORING OIL FILTERER Work Phone: [facility] 10-03-2021 10:47-0400 Diastolic blood pressure 68 mm[Hg] Emy Praisler-Wood BUSINESS SEGMENT MANAGER.FLAVORING OIL FILTERER Work Phone: [facility] 10-03-2021 10:47-0400 Heart rate 80 /min Emycam Ramirez-Savage BUSINESS SEGMENT MANAGER.FLAVORING OIL FILTERER Work Phone: [facility] 10-03-2021 10:47-0400 Respiratory rate 16 /min Emycam Ramirez-Savage BUSINESS SEGMENT MANAGER.FLAVORING OIL FILTERER Work Phone: [facility] 10-03-2021 10:47-0400 SaO2% (BldA) [Mass fraction] 97 % Emycam Ramirez-Savage BUSINESS SEGMENT MANAGER.FLAVORING OIL FILTERER Work Phone: [facility] 10-03-2021 10:47-0400 Systolic blood pressure 118 mm[Hg] Emycam Ramirez-Savage BUSINESS SEGMENT MANAGER.FLAVORING OIL FILTERER Work Phone: [facility] Encounters Encounter Date Encounter Type Care Provider Facility Start: 01-15-2025 End: 01-15-2025 Refill Tia Hernandez MD Work Phone: [facility] [place] Comment on above: Refill Request Start: 10-22-2024 End: 10-24-2024 Telephone encounter Tia Hernandez MD Work Phone: [facility] [place] Comment on above: FMLA Paperwork Start: 09-09-2024 End: 09-09-2024 Patient encounter procedure Checo Hall MD Work Phone: Orthopaedics Comment on above: 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); Slac (scapholunate advanced collapse) of wrist, right Start: 09-09-2024 End: 09-09-2024 ambulatory [facility] Facility:[facility] Start: 08-16-2024 End: 08-16-2024 Office outpatient visit 25 minutes Tia Hernandez MD Work Phone: [facility] [place] Comment on above: Primary hypertension (Primary Dx); Hypothyroidism, acquired; Right wrist pain; Musculoskeletal neck pain Start: 08-16-2024 End: 08-16-2024 ambulatory [facility] Facility:[facility] Start: 07-26-2024 End: 09-25-2024 Follow-up encounter Tia Hernandez MD Work Phone: [facility] Start: 07-23-2024 End: 07-23-2024 ambulatory [facility] Facility:[facility] Start: 07-23-2024 End: 07-23-2024 Subsequent hospital visit by physician Mri [facility] (I-Stat/1.5t) Work Phone: Radiology Comment on above: 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] Start: 07-12-2024 End: 07-12-2024 Follow-up encounter Tia Hernandez MD Work Phone: [facility] Comment on above: 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 (Primary Dx); Osteonecrosis (HCC) Start: 07-11-2024 End: 07-11-2024 Subsequent hospital visit by physician Xr [facility] Work Phone: Radiology Comment on above: Right wrist pain [M2 5.531] Start: 07-11-2024 End: 07-11-2024 ambulatory [facility] Facility:[facility] Start: 07-11-2024 End: 07-11-2024 Patient encounter procedure Tia Hernandez MD Work Phone: [facility] Comment on above: Wellness examination (Primary Dx); Elevated BP without diagnosis of hypertension; Right wrist pain; Hypothyroidism, acquired Start: 07-11-2024 End: 07-11-2024 Patient encounter status Tia Hernandez MD Work Phone: [facility] Start: 07-08-2024 End: 07-08-2024 Refill Tia Hernandez MD Work Phone: [facility] Comment on above: Refill Request Start: 07-07-2024 End: 07-07-2024 Nurse Triage Aditya Ortiz RN NURSE THORACIC MEDICINE SPECIALIST Comment on above: Refill Request Start: 07-02-2024 End: 08-02-2024 ambulatory Tia Hernandez MD Work Phone: [facility] Start: 06-26-2024 End: 06-26-2024 [facility] Start: 03-18-2024 End: 03-18-2024 Telephone encounter Tia Hernandez MD Work Phone: [facility] Comment on above: Elevated BP Start: 03-18-2024 End: 03-18-2024 ambulatory [facility] Facility:[facility] Start: 03-18-2024 End: 03-18-2024 Patient encounter procedure Ricardo Luna MD Work Phone: [facility] [place] Comment on above: Hypertension, unspec ified type (Primary Dx); Palpitations; Primary hyperparathyroidism (HCC); Hypothyroidism, unspecified type; Screening for depression; Encounter for screening examination for other mental health and behavioral disorders Start: 03-06-2024 End: 03-06-2024 [facility] Start: 01-08-2024 End: 01-08-2024 Orders Only Tia Hernandez MD Work Phone: [facility] Comment on above: Allergy, initial enc ounter Start: 11-15-2023 Refill Tia jones MD Work Phone: [facility] Comment on above: Refill Request Start: 11-04-2023 Telephone encounter Tia grant MD Work Phone: [facility] Comment on above: Forms (FMLA) Start: 06-15-2023 Telephone encounter iTa grant MD Work Phone: [facility] Comment on above: Results Start: 06-09-2023 End: 06-09-2023 Subsequent hospital visit by physician Norma [facility] [place] Work Phone: Radiology Comment on above: Pain of right thigh [M79.651] Start: 01-23-2023 Telephone encounter Tia grant MD Work Phone: [facility] Comment on above: ultrasound results Start: 01-19-2023 End: 01-19-2023 Subsequent hospital visit by physician [facility] Mob 1 Work Phone: Radiology Comment on above: Hx of parathyroidect kelvin (HCC) [E89.2] Start: 01-10-2023 Telephone encounter Tia grant MD Work Phone: [facility] [place] Comment on above: Results Start: 01-09-2023 End: 01-09-2023 Patient encounter procedure Tia Hernandez MD Work Phone: [facility] [place] Comment on above: Localized swelling, mass and lump, neck (Primary Dx); Hx of parathyroidectomy ([facility]); Weight gain; Fatigue, unspecified type; Multinodular goiter; Musculoskeletal neck pain Start: 01-05-2023 Telephone encounter Tia grant MD Work Phone: [facility] [place] Comment on above: Results Start: 01-04-2023 End: 01-04-2023 Subsequent hospital visit by physician [facility] (I-Stat) Work Phone: Cat [facility] Comment on above: Localized swelling, mass and lump, neck [R22.1] Start: 12-26-2022 Telephone encounter Miley johnson APRN.FLAVORING OIL FILTERER Work Phone: [facility] [place] Comment on above: Results Start: 12-23-2022 End: 12-23-2022 Office outpatient visit 15 minutes Miley Richmond BUSINESS SEGMENT MANAGER.FLAVORING OIL FILTERER Work Phone: [facility] [place] Comment on above: Localized swelling, mass and lump, neck (Primary Dx); Allergy, initial encounter Start: 12-16-2022 Telephone encounter Miley johnson APRN.FLAVORING OIL FILTERER Work Phone: [facility] [place] Comment on above: Results Start: 12-14-2022 End: 12-14-2022 Subsequent hospital visit by physician [facility] 2 Work Phone: Radiology Comment on above: Localized swelling, mass and lump, neck [R22.1] Start: 12-12-2022 End: 12-12-2022 Office outpatient visit 15 minutes Miley Richmond BUSINESS SEGMENT MANAGER.FLAVORING OIL FILTERER Work Phone: [facility] [place] Comment on above: Localized swelling, mass and lump, neck (Primary Dx) Start: 12-12-2022 ambulatory Tia jones MD Work Phone: [facility] [place] Comment on above: raised area right sh oulder/neck area Start: 10-18-2022 Refill Tia jones MD Work Phone: [facility] [place] Comment on above: Refill Request Start: 10-12-2022 ambulatory Tia jones MD Work Phone: [facility] Start: 03-11-2022 End: 03-11-2022 Patient encounter procedure Tia Hernandez MD Work Phone: [facility] [place] Comment on above: Primary hyperparathy roidism (HCC) (Primary Dx); Gastroesophageal reflux disease, unspecified whether esophagitis present; Screening for colon cancer; Vitamin D deficiency Start: 11-30-2021 End: 11-30-2021 Patient encounter procedure Tia Hernandez MD Work Phone: [facility] [place] Comment on above: Primary hyperparathy roidism (HCC) (Primary Dx); Gastroesophageal reflux disease, unspecified whether esophagitis present; Allergy, initial encounter; Leg cramping Start: 11-10-2021 ambulatory Tia jones MD Work Phone: [facility] Start: 10-03-2021 End: 10-03-2021 Patient encounter procedure Emy Nixon APRN.FLAVORING OIL FILTERER Work Phone: [facility] Comment on above: Dermatitis due to pl ants, including poison malinda, sumac, and oak (Primary Dx) Start: 09-16-2021 Telephone encounter Corina mancera BUSINESS SEGMENT MANAGER.FLAVORING OIL FILTERER Work Phone: [facility] [place] Comment on above: Results Start: 09-15-2021 Telephone encounter Corina mancera BUSINESS SEGMENT MANAGER.FLAVORING OIL FILTERER Work Phone: [facility] [place] Comment on above: Return Provider Call Patient Question: La b results Start: 09-13-2021 End: 09-13-2021 Patient encounter procedure Corina Jordan APRN.FLAVORING OIL FILTERER Work Phone: [facility] [place] Comment on above: Primary hyperparathy roidism (HCC) (Primary Dx); Muscle cramps; Allergy, initial encounter; Gastroesophageal reflux disease without esophagitis Start: 08-19-2021 End: 08-19-2021 ambulatory Gerard Wen MD Work Phone: Endocrine Surgery Comment on above: Hyperparathyroidism (HCC) (Primary Dx) Start: 08-19-2021 End: 08-19-2021 Telemedicine consultation with patient Gerard Wen MD Work Phone: [facility] Procedures Date Procedure Procedure Detail Performing Clinician Start: 07-11-2024 Radex wrist complete minimum 3 views Tia Hernandez MD Work Phone: Start: 03-18-2024 Adult depression scr eening assessment Ricardo Luna MD Work Phone: Start: 06-09-2023 Radex hip unilateral with pelvis 2-3 views Tia Hernandez MD Work Phone: Start: 01-19-2023 Us soft tissue head & neck real time imge docm Tia Hernandez MD Work Phone: Start: 01-04-2023 Ct soft tissue neck w/contrast material Miley Richmond BUSINESS SEGMENT MANAGER.FLAVORING OIL FILTERER Work Phone: Start: 12-14-2022 Us soft tissue head & neck real time imge docm Miley Richmond BUSINESS SEGMENT MANAGER.FLAVORING OIL FILTERER Work Phone: Start: 10-28-2020 Adult depression scr eening assessment Corina Jordan BUSINESS SEGMENT MANAGER.FLAVORING OIL FILTERER Work Phone: Start: 10-28-2020 Lipid 1996 panel - S sandra or Plasma Tia Hernandez MD Work Phone: Start: 05-24-2016 Mammography Corina mancera BUSINESS SEGMENT MANAGER.FLAVORING OIL FILTERER Work Phone: Plan of Treatment Date Care Activity Detail Author Start: 2036 RSV Vaccine (1 - 1-dose 75+ series) RSV Vaccine (1 - 1-dose 75+ series) [facility] Start: 07-11-2027 Diabetes Screening Diabetes Screening [facility] Start: 03-18-2027 Diabetes Screening Diabetes Screening [facility] Start: 02-18-2026 Urine microalbumin profile [facility] Start: 01-09-2026 DIABETES SCREEN DIABETES SCREEN [facility] Start: 01-09-2026 Diabetes Screening Diabetes Screening [facility] Start: 10-28-2025 Lipid 1996 panel - Serum or Plasma Lipid Screening [facility] Start: 10-28-2025 Lipid panel Lipid Screening [facility] Start: 10-28-2025 LIPID SCREEN LIPID SCREEN [facility] Start: 08-16-2025 Annual PCP Team Chronic Disease Visit Annual PCP Team Chronic Disease Visit [facility] Start: 07-11-2025 Annual PCP Team Chronic Disease Visit Annual PCP Team Chronic Disease Visit [facility] Start: 07-11-2025 Covid-19 Vaccine () Covid-19 Vaccine () [facility] Comment on above: Postponed from 01/14/2024 (Declined at t his time) Start: 03-18-2025 Annual PCP Team Chronic Disease Visit Annual PCP Team Chronic Disease Visit [facility] Start: 03-18-2025 Anxiety Screening Anxiety Screening [facility] Start: 03-18-2025 Depression Screening Depression Screening [facility] Start: 02-20-2025 End: 02-20-2025 Patient encounter procedure 02/20/2025 4:00 PM EDT Office Visit [facility] [address] [facility] [place] [address] Tia Hernandez MD [address] [place], [place] [id number] 6 mo f/u [facility] Comment on above: 6 mo f/u Start: 02-18-2025 End: 02-18-2025 Patient encounter procedure 02/18/2025 4:00 PM EDT Office Visit [facility] [address] [place] [address] Tia Hernandez MD [address] [place] [address] 6 mo f/u [facility] Comment on above: 6 mo f/u Start: 02-15-2025 End: 05-17-2025 Comprehensive metabolic 2000 panel - Serum or Plasma COMPREHENSIVE METABOLIC PANEL Lab Routine Primary hypertension Expected: 02/15/2025 (Approximate), Expires: 05/17/2025 [facility] Work Phone: Comment on above: Expected: 02/15/2025 (Approximate), Expi res: 05/17/2025 Start: 02-15-2025 End: 05-17-2025 Thyrotropin [Units/volume] in Serum or Plasma THYROID STIMULATING HORMONE Lab Routine Hypothyroidism, acquired Expected: 02/15/2025 (Approximate), Expires: 05/17/2025 [facility] Comment on above: Expected: 02/15/2025 (Approximate), Expi res: 05/17/2025 Start: 02-15-2025 End: 05-17-2025 Thyroxine (T4) free [Mass/volume] in Serum or Plasma T4 FREE/FREE THYROXINE Lab Routine Hypothyroidism, acquired Expected: 02/15/2025 (Approximate), Expires: 05/17/2025 [facility] Comment on above: Expected: 02/15/2025 (Approximate), Expi res: 05/17/2025 Start: 01-13-2025 Influenza vaccination [facility] Start: 11-11-2024 Influenza vaccination Influenza Vaccine (#1) [facility] Comment on above: Postponed from 01/14/2024 (Declined at t his time) Start: 09-13-2024 DIABETES SCREEN DIABETES SCREEN [facility] Start: 09-09-2024 End: 09-09-2024 Patient encounter procedure 09/09/2024 9:15 AM EDT Office Visit Orthopaedics [address] [place] [address] Checo Hall MD [address] [place] [address] 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 Orthopaedics Comment on above: 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 Radiology Comment on above: Patient states she has metal hardware in her neck but no where else. Start: 07-21-2024 DIABETES SCREEN DIABETES SCREEN [facility] Start: 07-11-2024 End: 10-10-2024 Thyrotropin [Units/volume] in Serum or Plasma [facility] Work Phone: Comment on above: Expected: 07/11/2024 (Approximate), Expi res: 10/10/2024 Start: 07-11-2024 End: 10-10-2024 Thyroxine (T4) free [Mass/volume] in Serum or Plasma [facility] Comment on above: Expected: 07/11/2024 (Approximate), Expi res: 10/10/2024 Start: 07-11-2024 End: 07-11-2024 Patient encounter procedure 07/11/2024 1:20 PM EST Office Visit [facility] [place] [address] [facility] [place], [place] [phone] Tia Hernandez MD [address] [facility] [place], [place] [phone] physical [facility] [place] Comment on above: physical Start: 06-09-2024 Covid-19 Vaccine (#1) Covid-19 Vaccine (#1) [facility] Comment on above: Postponed from 1961 (Declined at t his time) Start: 06-09-2024 Covid-19 Vaccine () Covid-19 Vaccine () [facility] Comment on above: Postponed from 01/13/2023 (Declined at t his time) Start: 06-09-2024 HIV screening HIV Screening [facility] Comment on above: Postponed from 1979 (Declined at t his time) Start: 06-09-2024 RSV Vaccine (1 - 1-dose 60+ series) RSV Vaccine (1 - 1-dose 60+ series) [facility] Comment on above: Postponed from 2021 (Declined at t his time) Start: 06-09-2024 Screening for malignant neoplasm of breast Mammogram Screening [facility] Comment on above: Postponed from 05/24/2017 (Declined at t his time) Start: 06-09-2024 Shingrix Vaccine (1 of 2) Shingrix Vaccine (1 of 2) [facility] Comment on above: Postponed from 2011 (Declined at t his time) Start: 04-16-2024 End: 04-16-2024 Patient encounter procedure 04/16/2024 9:20 AM EST Office Visit [facility] [address] [place], [place] [phone] Tia Hernandez MD [address] [place], [place] [id number] 1 month PCP follow up [facility] Comment on above: 1 month PCP follow up Start: 03-18-2024 End: 06-17-2024 Basic metabolic 2000 panel - Serum or Plasma [facility] Work Phone: Comment on above: Expected: 03/18/2024, Expires: 5 Start: 03-18-2024 End: 06-17-2024 Catecholamines 3 panel [Mass/volume] - Plasma [facility] Comment on above: Expected: 03/18/2024, Expires: 5 Start: 03-18-2024 End: 06-17-2024 Thyrotropin [Units/volume] in Serum or Plasma [facility] Comment on above: Expected: 03/18/2024, Expires: 5 Start: 03-18-2024 End: 06-17-2024 Thyroxine (T4) free [Mass/volume] in Serum or Plasma [facility] Comment on above: Expected: 03/18/2024, Expires: Start: 01-14-2024 Covid-19 Vaccine ( season) Covid-19 Vaccine () [facility] Start: 01-14-2024 Covid-19 Vaccine () Covid-19 Vaccine () [facility] Start: 01-14-2024 Influenza vaccination Influenza Vaccine (#1) [facility] Start: 11-12-2023 Influenza vaccination Influenza Vaccine (#1) [facility] Comment on above: Postponed from 01/13/2023 (Declined at t his time) Start: 05-15-2023 Behavioral Health Screening Behavioral Health Screening [facility] Start: 04-12-2023 End: 06-12-2023 Thyrotropin [Units/volume] in Serum or Plasma TSH BLD Lab Routine Hypothyroidism, acquired Expected: 04/12/2023 (Approximate), Expires: 06/12/2023 [facility] Work Phone: Comment on above: Expected: 04/12/2023 (Approximate), Expi res: 06/12/2023 Start: 04-12-2023 End: 06-12-2023 Thyroxine (T4) free [Mass/volume] in Serum or Plasma T4 FREE/FREE THYROX Lab Routine Hypothyroidism, acquired Expected: 04/12/2023 (Approximate), Expires: 06/12/2023 [facility] Work Phone: Comment on above: Expected: 04/12/2023 (Approximate), Expi res: 06/12/2023 Start: 03-11-2023 COVID-19 VACCINE (#1) COVID-19 VACCINE (#1) [facility] Comment on above: Postponed from 1961 (Declined at t his time) Start: 03-11-2023 HIV SCREENING HIV SCREENING [facility] Comment on above: Postponed from 1979 (Declined at t his time) Start: 01-13-2023 Influenza vaccination [facility] Start: 01-09-2023 End: 03-11-2023 Comprehensive metabolic 2000 panel - Serum or Plasma [facility] Work Phone: Comment on above: Expected: 01/09/2023, Expires: Start: 01-09-2023 End: 03-11-2023 Parathyrin.intact [Mass/volume] in Serum or Plasma [facility] Work Phone: Comment on above: Expected: 01/09/2023, Expires: Start: 01-09-2023 End: 03-11-2023 Thyrotropin [Units/volume] in Serum or Plasma [facility] Work Phone: Comment on above: Expected: 01/09/2023, Expires: Start: 11-11-2022 Influenza vaccination INFLUENZA (#1) [facility] Comment on above: Postponed from 01/13/2022 (Declined at t his time) Start: 09-09-2022 End: 11-09-2022 25-hydroxyvitamin D3 [Mass/volume] in Serum or Plasma VITAMIN D 25 HYDROXY Lab Routine Primary hyperparathyroidism (HCC) Vitamin D deficiency Expected: 09/09/2022 (Approximate), Expires: 11/09/2022 [facility] Work Phone: Comment on above: Expected: 09/09/2022 (Approximate), Expi res: 11/09/2022 Start: 09-09-2022 End: 11-09-2022 Comprehensive metabolic 2000 panel - Serum or Plasma COMP METABOLIC PANEL Lab Routine Primary hyperparathyroidism (HCC) Expected: 09/09/2022 (Approximate), Expires: 11/09/2022 [facility] Work Phone: Comment on above: Expected: 09/09/2022 (Approximate), Expi res: 11/09/2022 Start: 09-09-2022 End: 11-09-2022 Parathyrin.intact [Mass/volume] in Serum or Plasma PTH INTACT BLD Lab Routine Primary hyperparathyroidism (HCC) Expected: 09/09/2022 (Approximate), Expires: 11/09/2022 [facility] Work Phone: Comment on above: Expected: 09/09/2022 (Approximate), Expi res: 11/09/2022 Start: 05-15-2022 DEPRESSION ASSESSMENT DEPRESSION ASSESSMENT [facility] Start: 02-15-2022 End: 03-17-2022 Calcium [Mass/volume] in Serum or Plasma CALCIUM TOTAL BLD Lab Routine Hyperparathyroidism (HCC) Expected: 02/15/2022, Expires: 03/17/2022 [facility] Work Phone: Comment on above: Expected: 02/15/2022, Expires: 2 Start: 02-15-2022 End: 03-17-2022 CALCIUM IONIZED B CALCIUM IONIZED B Lab Routine Hyperparathyroidism (HCC) Expected: 02/15/2022, Expires: 03/17/2022 [facility] Work Phone: Comment on above: Expected: 02/15/2022, Expires: 2 Start: 02-15-2022 End: 03-17-2022 CREATININE BLD CREATININE BLD Lab Routine Hyperparathyroidism (HCC) Expected: 02/15/2022, Expires: 03/17/2022 [facility] Work Phone: Comment on above: Expected: 02/15/2022, Expires: 2 Start: 02-15-2022 End: 03-17-2022 PTH INTACT BLD PTH INTACT BLD Lab Routine Hyperparathyroidism (HCC) Expected: 02/15/2022, Expires: 03/17/2022 [facility] Work Phone: Comment on above: Expected: 02/15/2022, Expires: 2 Start: 02-15-2022 End: 03-17-2022 VITAMIN D 25 HYDROXY VITAMIN D 25 HYDROXY Lab Routine Hyperparathyroidism (HCC) Expected: 02/15/2022, Expires: 03/17/2022 [facility] Work Phone: Comment on above: Expected: 02/15/2022, Expires: 2 Start: 01-13-2022 Influenza vaccination [facility] Start: 11-02-2021 COLORECTAL CANCER SCREENING COLORECTAL CANCER SCREENING [facility] Start: 11-02-2021 FECAL OCCULT BLOOD FECAL OCCULT BLOOD [facility] Start: 11-02-2021 Screening for malignant neoplasm of colon [facility] Start: 10-28-2021 Adult depression screening assessment DEPRESSION SCREENING [facility] Start: 10-28-2021 HIV SCREENING HIV SCREENING [facility] Comment on above: Postponed from 1979 (Declined at t his time) Start: 09-13-2021 End: 11-13-2021 Comprehensive metabolic 2000 panel - Serum or Plasma [facility] Work Phone: Comment on above: Expected: 09/13/2021, Expires: 2 Start: 09-13-2021 End: 11-13-2021 Magnesium [Mass/volume] in Serum or Plasma [facility] Work Phone: Comment on above: Expected: 09/13/2021, Expires: 2 Start: 2021 RSV Vaccine (1 - 1-dose 60+ series) RSV Vaccine (1 - 1-dose 60+ series) [facility] Start: 05-24-2017 Mammography [facility] Start: 05-24-2017 Screening for malignant neoplasm of breast Mammogram Screening [facility] Start: 2011 Pneumococcal Vaccine: 50+ (1 of 1 - PCV) Pneumococcal Vaccine: 50+ (1 of 1 - PCV) [facility] Start: 2011 SHINGRIX VACCINE (1 of 2) SHINGRIX VACCINE (1 of 2) [facility] Start: 2006 COLOGUARD (FIT-DNA) COLOGUARD (FIT-DNA) [facility] Start: 2006 Colonoscopy COLONOSCOPY [facility] Start: [address] COLONOGRAPHY [facility] Start: 2006 Screening for malignant neoplasm of colon [facility] Start: 2006 SIGMOIDOSCOPY SIGMOIDOSCOPY [facility] Start: 1991 HPV TESTING HPV TESTING [facility] Start: 1991 Screening for malignant neoplasm of cervix HPV Testing [facility] Start: 1982 PAP TESTING PAP TESTING [facility] Start: 1982 Screening for malignant neoplasm of cervix [facility] Start: 1979 Anxiety Screening Anxiety Screening [facility] Start: 1979 BP Controlled (<130/80) BP Controlled (<130/80) [facility] Start: 1979 Depression Screening Depression Screening [facility] Start: 1979 HIV SCREENING HIV SCREENING [facility] Start: 1979 HIV screening HIV Screening [facility] Start: 1966 COVID-19 VACCINE (#1) COVID-19 VACCINE (#1) [facility] Start: 1966 COVID-19 VACCINE (1) COVID-19 VACCINE (1) [facility] Start: 1961 COVID-19 VACCINE (#1) COVID-19 VACCINE (#1) [facility] End: 01-22-2024 Ct soft tissue neck w/contrast material CT NECK SOFT TISSUE W IVCON Radiology Routine Localized swelling, mass and lump, neck 1 Occurrences starting 12/23/2022 until 01/22/2024 [facility] Work Phone: Comment on above: 1 Occurrences starting 12/23/2022 until 01/22/2024 End: 08-01-2025 DBT Breast - bilateral screening REYES SCREENING W [facility] Radiology Routine Encounter for screening mammogram for breast cancer 1 Occurrences starting 07/02/2024 until 08/01/2025 [facility] Work Phone: Comment on above: 1 Occurrences starting 07/02/2024 until 08/01/2025 Hemoglobin.gastroint es tinal.lower [Presence] in Stool by Immunoassay FECAL OCCULT BLOOD TEST Lab Routine Screening for colon cancer Ordered: 03/11/2022 [facility] Work Phone: Comment on above: Ordered: 03/11/2022 End: 11-11-2023 REYES SCREENING REYES SCREENING Radiology Routine Encounter for screening mammogram for breast cancer 1 Occurrences starting 10/12/2022 until 11/11/2023 [facility] Work Phone: Comment on above: 1 Occurrences starting 10/12/2022 until 11/11/2023 End: 08-11-2025 MR Wrist - right WO contrast MRI WRIST WO IVCON RIGHT Radiology Routine 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) 1 Occurrences starting 07/12/2024 until 08/11/2025 [facility] Work Phone: Comment on above: 1 Occurrences starting 07/12/2024 until 08/11/2025 MR Wrist - right WO contrast MRI WRIST WO IVCON RIGHT Radiology Routine 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) 07/23/2024 5:17 PM EDT [facility] Work Phone: End: 12-10-2022 Screening mammography bi 2-view breast inc cad REYES SCREENING Radiology Routine Encounter for screening mammogram for breast cancer 1 Occurrences starting 11/10/2021 until 12/10/2022 [facility] Work Phone: Comment on above: 1 Occurrences starting 11/10/2021 until 12/10/2022 End: 01-11-2024 US HEAD/NECK SOFT TISSUE OTHER US HEAD/NECK SOFT TISSUE OTHER Radiology Routine Localized swelling, mass and lump, neck 1 Occurrences starting 12/12/2022 until 01/11/2024 [facility] Work Phone: Comment on above: 1 Occurrences starting 12/12/2022 until 01/11/2024 End: 02-08-2024 Us soft tissue head & neck real time imge docm US THYROID/PARATHYROID Radiology Routine Hx of parathyroidectomy ([facility]) Multinodular goiter 1 Occurrences starting 01/09/2023 until 02/08/2024 [facility] Work Phone: Comment on above: 1 Occurrences starting 01/09/2023 until 02/08/2024 [facility] Immunizations Immunization Date Immunization Notes Care Provider Hemant weldon 02-19-2016 tetanus toxoid, redu jese diphtheria toxoid, and acellular pertussis vaccine, adsorbed Corina Jordan APRN.CNP Work Phone: [facility] 02-19-2016 influenza virus vaccine, unspecified formulation Tia Hernandez MD Work Phone: [facility] Payers Date Payer Category Payer Self-pay 2021 [employer] BL[employer]E [employer] PPO [id number] 2021 Unknown JANIE BLUE ACCE SS PPO [id number] 2021-Present [phone] [address] [place] [address] PPO [id number] 2021 Unknown [employer] BLUE ACCE SS PPO [id number] 2021-Present [phone] [place], [place] [id number] PPO [id number] 2021 Unknown [id number] Unknown [id number] Unknown [id number] Social History Date Type Detail Facility Start: 04-09-2012 End: 03-18-2024 Tobacco smoking status CAIS Ex-smoker [facility] Work Phone: Start: 05-15-1984 End: 05-15-2004 History of tobacco use Current smoker [facility] Work Phone: Start: 05-15-1984 End: 05-15-2004 History of tobacco use Cigarette Smoker [facility] Work Phone: Start: 04-09-2012 End: 12-14-2022 Cigarettes smoked current (pack per day) - Reported 0.7 [facility] Work Phone: Start: 04-09-2012 End: 03-18-2024 Tobacco use and exposure Smokeless tobacco non-user [facility] Work Phone: Start: 07-28-2021 End: 09-09-2024 Alcohol intake Current drinker of alcohol (finding) [facility] Start: 06-28-2012 History SDOH Alcohol Comment 6 beers on Monday during football [facility] Start: 1960 Sex Assigned At Not on file C [facility] Start: 09-01-2021 End: 03-11-2022 Exposure to SARS-CoV-2 (event) Not sure [facility] Start: 12-12-2022 End: 12-14-2022 Tobacco use panel [facility] Work Phone: Start: 04-15-2012 Adult Depression Screening Assessment 0 [facility] Work Phone: Functional Status Date Assessment Result Facility 08-04-2021 Are you deaf, or do you have serious difficulty hearing No 08/04/2021 9:30 AM [place] RN No [facility] 08-04-2021 Are you blind, or do you have serious difficulty seeing, even when wearing glasses No 08/04/2021 9:30 AM [place] RN No [facility] 08-04-2021 Do you have serious difficulty walking or climbing stairs No 08/04/2021 9:30 AM [place] RN No [facility] 08-04-2021 Do you have difficul ty dressing or bathing No 08/04/2021 9:30 AM [place] RN No [facility] Mental Status Date Assessment Result Facility 08-04-2021 Because of a physica l, mental, or emotional condition, do you have serious difficulty concentrating, remembering, or making decisions No 08/04/2021 9:30 AM [place] RN No [facility] Clinical Notes 10-03-2018 to 01-15-2025 Telephone Encounter - Chioma Richmond RN - 01/15/2025 3:47 PM EDTTelephone Encounter - Chioma Richmond RN - 01/15/2025 3:47 PM Edilia Hilton MA - 09/09/2024 10:06 AM EDTPatient Instructions Note Date & Type Note Facility 01-15-2025 Telephone encounter Note Patient calls and states that she is out of Lisinopril on Monday. Patient states that she is needing a refill on omeprazole. Patient asking if the dose can be increased on that? Patient has not had Omeprazole for a couple of weeks. The patient has been identified by name and date of : Yes Caregiver verified no other encounters exist for this prescription request: Yes Caregiver confirmed with patient/requestor that no other refills are due, in the near future, with this provider at this time: Yes The last office visit in the department: 08/16/2024 Does the patient have a future office visit with this provider/department: Yes 02/20/2025 Requested Prescriptions Pending Prescriptions Disp Refills lisinopril (ZESTRIL) 10 mg tablet 30 tablet 5 Sig: Take 1 tablet by mouth once daily. omeprazole (PRILOSEC) 20 mg capsule Sig: Take 1 capsule by mouth daily before breakfast. 1/2 hr before meal. Chioma Richmond RN January 15, 2025 3:47 PM [facility] 01-15-2025 Miscellaneous Notes Patient calls and states that she is out of Lisinopril on Monday. Patient states that she is needing a refill on omeprazole. Patient asking if the dose can be increased on that? Patient has not had Omeprazole for a couple of weeks. The patient has been identified by name and date of : Yes Caregiver verified no other encounters exist for this prescription request: Yes Caregiver confirmed with patient/requestor that no other refills are due, in the near future, with this provider at this time: Yes The last office visit in the department: 08/16/2024 Does the patient have a future office visit with this provider/department: Yes 02/20/2025 Requested Prescriptions Pending Prescriptions Disp Refills lisinopril (ZESTRIL) 10 mg tablet 30 tablet 5 Sig: Take 1 tablet by mouth once daily. omeprazole (PRILOSEC) 20 mg capsule Sig: Take 1 capsule by mouth daily before breakfast. 1/2 hr before meal. Chioma Richmond RN January 15, 2025 3:47 PM documented in this encounter [facility] 10-24-2024 Telephone encounter Note Forms completed and faxed Lorie Koehler MA [facility] 10-24-2024 Miscellaneous Notes Forms completed and faxed Lorie Koehler MA Forms done Tia Hernandez MD Office received FMLA forms from [email or web address] on pt. Pt has FMLA to care for her spouse Michael ValerioBogdan Conde. Once completed fax back to: [email or web address] ATTN: Lula Barrera Human Pottery Striper Lorie Koehler MA documented in this encounter [facility] 10-24-2024 Telephone encounter Note Forms done Tia Hernandez MD [facility] 10-22-2024 Telephone encounter Note Office received FMLA forms from [email or web address] on pt. Pt has FMLA to care for her spouse Michael Conde. Once completed fax back to: [email or web address] ATTN: Lula Barrera Human Pottery Striper Lorie Koehler MA [facility] 09-09-2024 Note HNO ID: [id number] Author: EDILIA HOLGUIN MA Service: ? Author Type: Gang Saw Operator Type: Progress Notes Filed: 09/09/2024 14:07 Note Text: PT ASSESSMENT - CASTING ROOM Natividad presents for Application of brace. Applied Verenice and [employer]o Modabber wrist brace to Right wrist. Patient tolerated well. Patient has been instructed in Care and proper application of brace. Patient signed Shannon PPA electronically for billing and verbalized understanding. Edilia Holguin MA [facility] 09-09-2024 History of Present illness Narrative PT ASSESSMENT - CASTING ROOM Natividad presents for Application of brace. Applied Verenice and Del Toro Modabber wrist brace to Right wrist. Patient tolerated well. Patient has been instructed in Care and proper application of brace. Patient signed Shannon PPA electronically for billing and verbalized understanding. Edilia Holguin MA Checo Hall MD Department of Orthopaedics Orthopa[facility] [address] [facility] [address] Dept: [phone] Dept September 09, 2024 CHIEF COMPLAINT: New and Pain of the Right Wrist HPI Natividad is a 64-year-old female presenting with right wrist pain and swelling. Natividad reports that approximately 2 months ago, she experienced a popping sensation in her right wrist while performing repetitive tasks at work. This was followed by significant pain and swelling. She was provided with a brace by the workplace nurse, but it exacerbated the swelling, leading her to discontinue its use. She has a history of carpal tunnel surgery on the same wrist performed in the . She was evaluated by her primary care physician, Dr. Hernandez, on 08/08, who ordered an MRI in July. Natividad was informed that the MRI revealed a torn ligament and other unspecified issues. Since the initial injury, she reports persistent pain localized to the center and back of the wrist, as well as the inside. The pain intensifies by the end of the day, despite the use of aspirin and topical lidocaine for relief. She denies any recent trauma to the wrist. She also has a history of cervical fusion and inquires about the potential impact of arthritis in her shoulder on her wrist pain. She is currently on lisinopril for hypertension and denies any renal issues, diabetes, or blood glucose problems. She occasionally takes Aleve for pain management. 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 Limited range of motion in the right wrist compared to the left, with pain localized to the radial carpal joint. No evidence of acute injury or tendon damage. - Initiate topical Voltaren gel, apply up to four times daily to the affected area. - Provided a comfortable Velcro wrist brace to reduce load during activities. - Consider oral NSAIDs such as meloxicam or Lodeen if topical treatment is insufficient; monitor blood pressure due to potential side effects. - Discussed potential for corticosteroid injection if pain persists despite conservative measures. Will continue to monitor patient for Primary osteoarthritis of right wrist (primary encounter diagnosis) Slac (scapholunate advanced collapse) of wrist, right, patient to schedule visit as per follow up discussed. FOLLOW UP INSTRUCTIONS: As needed OBJECTIVE: Ms. Natividad Conde is a pleasant 64 year old in no apparent distress. Gen:BP 138/76 LMP 07/27/2009 nl development, non obese, no deformities ENT: Normocephalic, normal hearing, moist mucosa CV: Pulses:Radial= 2+ and symmetric, capillary refill < 2 secs, no peripheral edema/varicosities Skin: no rash, bruising or lesions. Good turgor. Psych: cooperative and appropriate, alert and oriented x 3, good mood and affect. Musculoskeletal: - Musculoskeletal: - Right Wrist: Limited extension to approximately 60 degrees; tenderness noted. Left wrist, 85 degrees of extension. Painful Bernabe's exam, no clunk. TTP at the central, dorsal RC joint. Mild tenderness with some min. Swelling over the ulnar fossa. Mild swelling, without too much pain at the thumb, CMC joint. Minimal crepitus and mild pain with Grind. NV exam intact. Previous carpal tunnel scar noted without complication. IMAGING: Labs - Basic labs: Normal renal function and no evidence of abnormal glucose levels Imaging - (July) MRI of the right wrist: - Torn scapholunate ligament - Degenerative changes in the triangular fibrocartilage - Mild to moderate arthritic changes - X-ray of the right wrist: - Arthritic changes with narrowed joint spaces and subchondral sclerosis - Evidence of chronic scapholunate ligament tear Supporting Subjective Information Below: Past Medical History: PAST MEDICAL HISTORY Diagnosis Date Arthritis in left hand Cervical disc disease History of smoking Multinodular goiter 04/14/2013 thyroiditis 04/2013 Osteopenia 05/15/2011 Past Surgical History: PAST SURGICAL HISTORY Procedure Laterality Date BIOPSY BREAST OPEN INCISIONAL 07/05/2012 left, Fibroadenoma BX BREAST PERC NEED W/GUID 05/31/2012 U/S needle core UOQ left breast, fibroadenoma and Phyllodes tumor CERV SPINE FUSN,ANTER,BELOW C2 1996 DELIVERY ONLY X 2 , low transverse LAPAROSCOPY SURG CHOLECYSTECTOMY 10/15/2018 Cholecystectomy, lap NEUROPLASTY &/TRANSPOS MEDIAN NRV CARPAL TUNNE Carpal tunnel decomp Right hand PAST SURGICAL HISTORY OF N/A 08/03/2021 Parathyroid removed TONSILLECTOMY PRIMARY/SECONDARY <AGE 12 Tonsillectomy Family History: FAMILY HISTORY Problem Relation Age of Onset Diabetes Mother Hypertension Mother DVT Mother Hypertension Father Alcohol/Drug Father alcohol No Known Problems Sister No Known Problems Brother No Known Problems Brother No Known Problems Brother Heart Maternal Grandmother hardening of the arteries Osteoporosis Maternal Grandmother shrunk with age Ischemic Heart Disease Maternal Grandfather 63 NM Hypertension Maternal Aunt Diabetes Maternal Aunt Coronary Artery Disease No Family History Thyroid No Family History Blood Disease No Family History Blood Clots No Family History Factor 5 Leiden No Family History Stroke No Family History Systemic Lupus Erythematosus No Family History Multiple Sclerosis No Family History Bipolar disorder No Family History Schizophrenia No Family History Alzheimer's Disease No Family History Dementia No Family History Parkinson s Disease No Family History Aneurysm No Family History COPD No Family History Hyperlipidemia No Family History Social History: Social History Tobacco Use Smoking status: Former Current packs/day: 0.00 Average packs/day: 0.7 packs/day for 20.0 years (14.0 ttl pk-yrs) Types: Cigarettes Start date: 1984 Quit date: 2004 Years since quittin.3 Smokeless tobacco: Never Vaping Use Vaping status: Never Used Substance Use Topics Alcohol use: Yes Comment: 6 beers on Monday during football Drug use: No Medications: Current Outpatient Medications Medication Sig lisinopril (ZESTRIL) 10 mg tablet Take 1 tablet by mouth once daily. levothyroxine (SYNTHROID) 75 mcg tablet Take 1 tablet by mouth once daily. Take on empty stomach. For Thyroid omeprazole (PRILOSEC) 20 mg capsule Take 1 capsule by mouth daily before breakfast. 1/2 hr before meal. ibnuvut-[id number]-[id number] D3 500 mg-5 mcg (200 unit) per tablet Take 1 tablet by mouth once daily. Cyanocobalamin (VITAMIN B-12) 2,000 mcg TbER Take 1 tablet by mouth once daily. loratadine-pseudoephedrine ER (CLARITIN-D 24) 10-240 mg Tb24 Take 1 tablet by mouth once daily. No current facility-administered medications for this visit. Allergies: Levothyroxine ROS: General (negative for fatigue, malaise, weight loss/gain) HEENT (negative for headache, earache, recent vision changes, sinus pain, sore throat) Respiratory (no recent shortness of breath, hemoptysis) CV (negative for chest tightness, palpitations) Musculoskeletal (see HPI) Psych (no depression, anxiety) Musculoskeletal: (+) right wrist pain, (+) right wrist swelling Recording using ambient [employer] software for draft documentation of the visit was discussed with the patient/authorized premium representative; all questions welcomed and answered. Patient/authorized premium representative agreed to proceed Checo Hall MD documented in this encounter [facility] 09-09-2024 Note HNO ID: [id number] Author: CHECO HALL MD Service: ? Author Type: Physician Type: Progress Notes Filed: 09/09/2024 14:07 Note Text: Checo Hall MD Department of Orthopaedics Orthopaedics [address] [place] [address] Dept: [phone] Dept September 09, 2024 CHIEF COMPLAINT: New and Pain of the Right Wrist HPI Natividad is a 64-year-old female presenting with right wrist pain and swelling. Natividad reports that approximately 2 months ago, she experienced a popping sensation in her right wrist while performing repetitive tasks at work. This was followed by significant pain and swelling. She was provided with a brace by the workplace nurse, but it exacerbated the swelling, leading her to discontinue its use. She has a history of carpal tunnel surgery on the same wrist performed in the . She was evaluated by her primary care physician, Dr. Hernandez, on 08/08, who ordered an MRI in July. Natividad was informed that the MRI revealed a torn ligament and other unspecified issues. Since the initial injury, she reports persistent pain localized to the center and back of the wrist, as well as the inside. The pain intensifies by the end of the day, despite the use of aspirin and topical lidocaine for relief. She denies any recent trauma to the wrist. She also has a history of cervical fusion and inquires about the potential impact of arthritis in her shoulder on her wrist pain. She is currently on lisinopril for hypertension and denies any renal issues, diabetes, or blood glucose problems. She occasionally takes Aleve for pain management. 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 Limited range of motion in the right wrist compared to the left, with pain localized to the radial carpal joint. No evidence of acute injury or tendon damage. - Initiate topical Voltaren gel, apply up to four times daily to the affected area. - Provided a comfortable Velcro wrist brace to reduce load during activities. - Consider oral NSAIDs such as meloxicam or Lodeen if topical treatment is insufficient; monitor blood pressure due to potential side effects. - Discussed potential for corticosteroid injection if pain persists despite conservative measures. Will continue to monitor patient for Primary osteoarthritis of right wrist (primary encounter diagnosis) Slac (scapholunate advanced collapse) of wrist, right, patient to schedule visit as per follow up discussed. FOLLOW UP INSTRUCTIONS: As needed OBJECTIVE: Ms. Natividad Conde is a pleasant 64 year old in no apparent distress. Gen:BP 138/76 LMP 07/27/2009 nl development, non obese, no deformities ENT: Normocephalic, normal hearing, moist mucosa CV: Pulses:Radial= 2+ and symmetric, capillary refill < 2 secs, no peripheral edema/varicosities Skin: no rash, bruising or lesions. Good turgor. Psych: cooperative and appropriate, alert and oriented x 3, good mood and affect. Musculoskeletal: - Musculoskeletal: - Right Wrist: Limited extension to approximately 60 degrees; tenderness noted. Left wrist, 85 degrees of extension. Painful Bernabe's exam, no clunk. TTP at the central, dorsal RC joint. Mild tenderness with some min. Swelling over the ulnar fossa. Mild swelling, without too much pain at the thumb, CMC joint. Minimal crepitus and mild pain with Grind. NV exam intact. Previous carpal tunnel scar noted without complication. IMAGING: Labs - Basic labs: Normal renal function and no evidence of abnormal glucose levels Imaging - (July) MRI of the right wrist: - Torn scapholunate ligament - Degenerative changes in the triangular fibrocartilage - Mild to moderate arthritic changes - X-ray of the right wrist: - Arthritic changes with narrowed joint spaces and subchondral sclerosis - Evidence of chronic scapholunate ligament tear Supporting Subjective Information Below: Past Medical History: PAST MEDICAL HISTORY Diagnosis Date Arthritis in left hand Cervical disc disease History of smoking Multinodular goiter 04/14/2013 thyroiditis 04/2013 Osteopenia 05/15/2011 Past Surgical History: PAST SURGICAL HISTORY Procedure Laterality Date BIOPSY BREAST OPEN INCISIONAL 07/05/2012 left, Fibroadenoma BX BREAST PERC NEED W/GUID 05/31/2012 U/S needle core UOQ left breast, fibroadenoma and Phyllodes tumor CERV SPINE FUSN,ANTER,BELOW C2 1996 DELIVERY ONLY X 2 , low transverse LAPAROSCOPY SURG CHOLECYSTECTOMY 10/15/2018 Cholecystectomy, lap NEUROPLASTY AND/TRANSPOS MEDIAN NRV CARPAL TUNNE (more content not included)... [facility] 08-16-2024 History of Present illness Narrative Chief Complaint Patient presents with: F/U 1 month HPI Natividad Conde is a 64 year old female who presents here today for a 1 month follow up. Pt here today for a BP check. Had stomach bug last week. HTN - At previous visit pt was started on Lisinopril 10 mg once daily due to elevated BP. Pt has had multiple elevated readings over the past several years. No hx of being on medication in the past. Checks BP at work through the Nurse, last week 146/64. Denies any chest pain, sob, or dizziness. Started taking Vitamin D3 twice a week. Asking about results from CT scan and XR from [facility] ED visit. Wants to review those today. Past medical history, appointments, medications, allergies reviewed. 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 Cervical disc disease History of smoking Multinodular goiter 04/14/2013 thyroiditis 04/2013 Osteopenia 05/15/2011 Previous Surgical History PAST SURGICAL HISTORY Procedure Laterality Date BIOPSY BREAST OPEN INCISIONAL 07/05/2012 left, Fibroadenoma BX BREAST PERC NEED W/GUID 05/31/2012 U/S needle core UOQ left breast, fibroadenoma and Phyllodes tumor CERV SPINE FUSN,ANTER,BELOW C2 1996 DELIVERY ONLY X 2 , low transverse LAPAROSCOPY SURG CHOLECYSTECTOMY 10/15/2018 Cholecystectomy, lap NEUROPLASTY &/TRANSPOS MEDIAN NRV CARPAL TUNNE Carpal tunnel decomp Right hand PAST SURGICAL HISTORY OF N/A 08/03/2021 Parathyroid removed TONSILLECTOMY PRIMARY/SECONDARY <AGE 13 Tonsillectomy Family History FAMILY HISTORY Problem Relation Age of Onset Diabetes Mother Hypertension Mother DVT Mother Hypertension Father Alcohol/Drug Father alcohol No Known Problems Sister No Known Problems Brother No Known Problems Brother No Known Problems Brother Heart Maternal Grandmother hardening of the arteries Osteoporosis Maternal Grandmother shrunk with age Ischemic Heart Disease Maternal Grandfather 63 NM Hypertension Maternal Aunt Diabetes Maternal Aunt Coronary Artery Disease No Family History Thyroid No Family History Blood Disease No Family History Blood Clots No Family History Factor 5 Leiden No Family History Stroke No Family History Systemic Lupus Erythematosus No Family History Multiple Sclerosis No Family History Bipolar disorder No Family History Schizophrenia No Family History Alzheimer's Disease No Family History Dementia No Family History Parkinson s Disease No Family History Aneurysm No Family History COPD No Family History Hyperlipidemia No Family History Patient Allergies ALLERGIES Allergen Reactions Levothyroxine Other: See Comments Bloating and Vuong Current Medications Current Outpatient Medications on File Prior to Visit Medication Sig lisinopril (ZESTRIL) 10 mg tablet Take 1 tablet by mouth once daily. levothyroxine (SYNTHROID) 75 mcg tablet Take 1 tablet by mouth once daily. Take on empty stomach. For Thyroid loratadine-pseudoephedrine ER (CLARITIN-D 24) 10-240 mg Tb24 Take 1 tablet by mouth once daily. omeprazole (PRILOSEC) 20 mg capsule Take 1 capsule by mouth daily before breakfast. 1/2 hr before meal. bowhrqm-trgpovaue-dpzmzyr D3 500 mg-5 mcg (200 unit) per tablet Take 1 tablet by mouth once daily. (Patient taking differently: Take 1 tablet by mouth as needed.) Cyanocobalamin (VITAMIN B-12) 2,000 mcg TbER Take 1 tablet by mouth once daily. No current facility-administered medications on file prior to visit. Social History Social History Tobacco Use Smoking status: Former Current packs/day: 0.00 Average packs/day: 0.7 packs/day for 20.0 years (14.0 ttl pk-yrs) Types: Cigarettes Start date: 1984 Quit date: 2004 Years since quittin.2 Smokeless tobacco: Never Vaping Use Vaping status: Never Used Substance Use Topics Alcohol use: Yes Comment: 6 beers on Monday during football Drug use: No EXAM: BP 136/70 Pulse 64 Resp 16 Wt 71.5 kg (157 lb 10.1 oz) LMP 07/27/2009 BMI 26.64 kg/m General Appearance: Well appearing, alert, in no acute distress, well-hydrated, well nourished.. Lungs: Lungs clear to auscultation. No wheezing, rhonchi, rales.. Heart: RRR without murmur, gallop, or rubs. No ectopy. Health Maintenance List HIV Screening Never done Cervical Cancer Screening Never done Shingrix Vaccine(1 of 2) Never done Pneumococcal Vaccine: 50+(1 of 1 - PCV) Never done Mammogram Screening due on 05/24/2017 Colorectal Cancer Screening due on 11/02/2021 Influenza Vaccine(1) due on 11/11/2024 Covid-19 Vaccine( - season) due on 07/11/2025 Depression Screening due on 03/18/2025 Anxiety Screening due on 03/18/2025 Annual PCP Team Chronic Disease Visit due on 07/11/2025 Lipid Screening due on 10/28/2025 DTaP,Tdap,Td Vaccine(2 - Td or Tdap) due on 02/18/2026 Diabetes Screening due on 07/11/2027 RSV Vaccine(1 - 1-dose 75+ series) due on 2036 Hepatitis C Screening Completed Data reviewed None ASSESSMENT/PLAN: 1. Primary hypertension - ICD9: 401.9, ICD10: I10 (primary diagnosis) - Controlled - Continue current medications - Recommend home blood pressure monitoring, to bring results to next visit - Encouraged sodium restriction, DASH or Mediterranean diet - Recommend regular aerobic exercise - COMPREHENSIVE METABOLIC PANEL 2. Hypothyroidism, acquired - ICD9: 244.9, ICD10: E03.9 - Instructed patient on importance of taking on an empty stomach either first thing in the morning or at bedtime. - continue current dose of Synthroid - THYROID STIMULATING HORMONE - T4 FREE/FREE THYROXINE 3. Right wrist pain - ICD9: 719.43, ICD10: M25.531 Follow with Ortho as scheduled 4. Musculoskeletal neck pain - ICD9: 723.1, ICD10: M54.2 Symptomatic treatment Follow up in 6 months with labs prior Medical Decision Making: Problems: Moderate: 2+ stable chronic illnesses Risk: Moderate: Drug management Medical Decision Making Level: 4 - Moderate Tia Hernandez MD documented in this encounter [facility] 08-16-2024 Note HNO ID: [id number] Author: TIA HERNANDEZ MD Service: ? Author Type: Physician Type: Progress Notes Filed: 08/16/2024 17:20 Note Text: Chief Complaint Patient presents with: F/U 1 month HPI Natividad Conde is a 64 year old female who presents here today for a 1 month follow up. Pt here today for a BP check. Had stomach bug last week. HTN - At previous visit pt was started on Lisinopril 10 mg once daily due to elevated BP. Pt has had multiple elevated readings over the past several years. No hx of being on medication in the past. Checks BP at work through the Nurse, last week 146/64. Denies any chest pain, sob, or dizziness. Started taking Vitamin D3 twice a week. Asking about results from CT scan and XR from [facility] ED visit. Wants to review those today. Past medical history, appointments, medications, allergies reviewed. 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 Cervical disc disease History of smoking Multinodular goiter 04/14/2013 thyroiditis 04/2013 Osteopenia 05/15/2011 Previous Surgical History PAST SURGICAL HISTORY Procedure Laterality Date BIOPSY BREAST OPEN INCISIONAL 07/05/2012 left, Fibroadenoma BX BREAST PERC NEED W/GUID 05/31/2012 U/S needle core UOQ left breast, fibroadenoma and Phyllodes tumor CERV SPINE FUSN,ANTER,BELOW C2 1996 DELIVERY ONLY X 2 , low transverse LAPAROSCOPY SURG CHOLECYSTECTOMY 10/15/2018 Cholecystectomy, lap NEUROPLASTY AND/TRANSPOS MEDIAN NRV CARPAL TUNNE Carpal tunnel decomp Right hand PAST SURGICAL HISTORY OF N/A 08/03/2021 Parathyroid removed TONSILLECTOMY PRIMARY/SECONDARY Tonsillectomy Family History FAMILY HISTORY Problem Relation Age of Onset Diabetes Mother Hypertension Mother DVT Mother Hypertension Father Alcohol/Drug Father alcohol No Known Problems Sister No Known Problems Brother No Known Problems Brother No Known Problems Brother Heart Maternal Grandmother hardening of the arteries Osteoporosis Maternal Grandmother shrunk with age Ischemic Heart Disease Maternal Grandfather 63 NM Hypertension Maternal Aunt Diabetes Maternal Aunt Coronary Artery Disease No Family History Thyroid No Family History Blood Disease No Family History Blood Clots No Family History Factor 5 Leiden No Family History Stroke No Family History Systemic Lupus Erythematosus No Family History Multiple Sclerosis No Family History Bipolar disorder No Family History Schizophrenia No Family History Alzheimer's Disease No Family History Dementia No Family History Parkinson?s Disease No Family History Aneurysm No Family History COPD No Family History Hyperlipidemia No Family History Patient Allergies ALLERGIES Allergen Reactions Levothyroxine Other: See Comments Bloating and Vuong Current Medications Current Outpatient Medications on File Prior to Visit Medication Sig lisinopril (ZESTRIL) 10 mg tablet Take 1 tablet by mouth once daily. levothyroxine (SYNTHROID) 75 mcg tablet Take 1 tablet by mouth once daily. Take on empty stomach. For Thyroid loratadine-pseudoephedrine ER (CLARITIN-D 24) 10-240 mg Tb24 Take 1 tablet by mouth once daily. omeprazole (PRILOSEC) 20 mg capsule Take 1 capsule by mouth daily before breakfast. 1/2 hr before meal. vsugwms-wsvpyegbq-vtrkatx D3 500 mg-5 mcg (200 unit) per tablet Take 1 tablet by mouth once daily. (Patient taking differently: Take 1 tablet by mouth as needed.) Cyanocobalamin (VITAMIN B-12) 2,000 mcg TbER Take 1 tablet by mouth once daily. No current facility-administered medications on file prior to visit. Social History Social History Tobacco Use Smoking status: Former Current packs/day: 0.00 Average packs/day: 0.7 packs/day for 20.0 years (14.0 ttl pk-yrs) Types: Cigarettes Start date: 1984 Quit date: 2004 Years since quittin.2 Smokeless tobacco: Never Vaping Use Vaping status: Never Used Substance Use Topics Alcohol use: Yes Comment: 6 beers on Monday during football Drug use: No EXAM: BP 136/70 Pulse 64 Resp 16 Wt 71.5 kg (157 lb 10.1 oz) LMP 07/27/2009 BMI 26.64 kg/m? General Appearance: Well appearing, alert, in no acute distress, well-hydrated, well nourished.. Lungs: Lungs clear to auscultation. No wheezing, rhonchi, rales.. Heart: RRR without murmur, gallop, or rubs. No ectopy. Health Maintenance List HIV Screening Never done Cervical Cancer Screening Never done Shingrix Vaccine(1 of 2) Never done Pneumococcal Vaccine: 50+(1 of 1 - PCV) Never done Mammogram Screening due on 05/24/2017 Colorectal Cancer Screening due on 11/02/2021 Influenza Vaccine(1) due on 11/11/2024 Covid-19 Vaccine( season) due on 07/11/2025 Depression Screening due on 03/18/2025 Anxiety Screening due on 03/18/2025 Annual PCP Team Chronic Disease Visit due on 07/11/2025 Lipid Screening due on 10/28/2025 DTaP, (more content not included)... [facility] 07-29-2024 Telephone encounter Note The Xrays and CT just showed mild to moderate degenerate changes. Heat, stretching, tylenol are the best treatments. Tia Hernandez MD [facility] 07-29-2024 Miscellaneous Notes The Xrays and CT just showed mild to moderate degenerate changes. Heat, stretching, tylenol are the best treatments. Tia Hernandez MD Pt would like you to review it and give your opinion. Smitha Yoder LPN ----- Message from Tia Hernandez MD sent at 07/26/2024 1:30 PM EDT ----- Noted Yes, I did get the CT and Xray results Tia Hernandez MD Patient notified of results, verbalizes understanding of instructions. Smitha Yoder LPN Pt was wondering if Dr Hernandez got her CT of neck and x-ray of shoulder when she was in the hosp. 2/-3 weeks ago? Please notify patient that her wrist MRI does show severe osteoarthritis, and a torn ligament in her wrist. I would recommend follow up with Ortho for further revaluation. Tia Hernandez MD documented in this encounter [facility] 07-26-2024 Telephone encounter Note Pt would like you to review it and give your opinion. Smitha Yoder LPN [facility] 07-26-2024 Telephone encounter Note ----- Message from Tia Hernandez MD sent at 07/26/2024 1:30 PM EDT ----- Noted Yes, I did get the CT and Xray results Tia Hernandez MD [facility] 07-26-2024 Telephone encounter Note Patient notified of results, verbalizes understanding of instructions. Smitha Yoder LPN Pt was wondering if Dr Hernandez got her CT of neck and x-ray of shoulder when she was in the hosp. 2/-3 weeks ago? [facility] 07-26-2024 Telephone encounter Note Please notify patient that her wrist MRI does show severe osteoarthritis, and a torn ligament in her wrist. I would recommend follow up with Ortho for further revaluation. Tia Hernandez MD [facility] 07-23-2024 History of Present illness Narrative Radiology Service Progress Note PATIENT NAME: Natividad Conde DATE OF SERVICE: July 23, 2024 TIME: 4:36 PM PATIENT IDENTITY VERIFICATION COMPLETED USING TWO (2) IDENTIFIERS: Name and Date of confirmed by patient verbally. FALL SCREENING: Has the patient had 2 falls in the last year or 1 fall with injury or currently using an Ambulatory Assistive Device (Walker, Cane, Wheelchair, Crutches, etc.)? No PATIENT GENDER DATA: Assigned female at . status: : No status: NO. PATIENT RELEVANT IMPLANT DATA REVIEWED: Yes PATIENT PRESENTS WITH AN IMPLANTABLE OR ATTACHED OPERATIONS MANAGEMENT PROFESSIONALS: No RADIOLOGY DEPARTMENT: MR; Exam(s) Completed: Upper MSK: Wrist, right PERIPHERAL IV DATA: Not applicable SIGNED BY: Dang Ye RT(R) July 23, 2024 4:36 PM documented in this encounter [facility] 07-23-2024 Note HNO ID: [id number] Author: DANG YE RT(R) Service: ? Author Type: Technologist Type: Progress Notes Filed: 07/23/2024 16:36 Note Text: Radiology Service Progress Note PATIENT NAME: Natividad Conde DATE OF SERVICE: July 23, 2024 TIME: 4:36 PM PATIENT IDENTITY VERIFICATION COMPLETED USING TWO (2) IDENTIFIERS: Name and Date of confirmed by patient verbally. FALL SCREENING: Has the patient had 2 falls in the last year or 1 fall with injury or currently using an Ambulatory Assistive Device (Walker, Cane, Wheelchair, Crutches, etc.)? No PATIENT GENDER DATA: Assigned female at . status: : No status: NO. PATIENT RELEVANT IMPLANT DATA REVIEWED: Yes PATIENT PRESENTS WITH AN IMPLANTABLE OR ATTACHED OPERATIONS MANAGEMENT PROFESSIONALS: No RADIOLOGY DEPARTMENT: MR; Exam(s) Completed: Upper MSK: Wrist, right PERIPHERAL IV DATA: Not applicable SIGNED BY: RT Kimani(R) July 23, 2024 4:36 PM [facility] 07-12-2024 Telephone encounter Note Pt returned call and given provider's message below with verbalized understanding. Pt agreeable. Transferred to pss. [facility] 07-12-2024 Miscellaneous Notes Pt returned call and given provider's message below with verbalized understanding. Pt agreeable. Transferred to pss. Message left for pt to call back for results. Lorie Koehler MA Please notify patient that her lab results are all normal. Her wrist Xray shows degenerative changes and possible bone loss of one of her wrist bones. I would like her to get an MRI of the wrist and see an Orthopedic doctor for further evaluation. Tia Hernandez MD documented in this encounter [facility] 07-12-2024 Telephone encounter Note Message left for pt to call back for results. Lorie Koehler MA [facility] 07-12-2024 Telephone encounter Note Please notify patient that her lab results are all normal. Her wrist Xray shows degenerative changes and possible bone loss of one of her wrist bones. I would like her to get an MRI of the wrist and see an Orthopedic doctor for further evaluation. Tia Hernandez MD [facility] 07-11-2024 History of Present illness Narrative Radiology Service Progress Note PATIENT NAME: Natividad Conde DATE OF SERVICE: July 11, 2024 TIME: 2:10 PM PATIENT IDENTITY VERIFICATION COMPLETED USING TWO (2) IDENTIFIERS: Name and Date of confirmed by patient verbally. FALL SCREENING: Has the patient had 2 falls in the last year or 1 fall with injury or currently using an Ambulatory Assistive Device (Walker, Cane, Wheelchair, Crutches, etc.)? No PATIENT GENDER DATA: Assigned female at . status: : No status: NO. PATIENT RELEVANT IMPLANT DATA REVIEWED: Not Applicable PATIENT PRESENTS WITH AN IMPLANTABLE OR ATTACHED OPERATIONS MANAGEMENT PROFESSIONALS: No RADIOLOGY DEPARTMENT: General X-ray: Exam(s) Completed: Upper Extremity X-Ray(s): Wrist, right PERIPHERAL IV DATA: Not applicable SIGNED BY: RT Enrique(R) July 11, 2024 2:10 PM documented in this encounter [facility] 07-11-2024 Note HNO ID: [id number] Author: RACHEL LUNSFORD RT(R) Service: Radiology Author Type: Technologist Type: Progress Notes Filed: 07/11/2024 14:17 Note Text: Radiology Service Progress Note PATIENT NAME: Natividad Conde DATE OF SERVICE: July 11, 2024 TIME: 2:10 PM PATIENT IDENTITY VERIFICATION COMPLETED USING TWO (2) IDENTIFIERS: Name and Date of confirmed by patient verbally. FALL SCREENING: Has the patient had 2 falls in the last year or 1 fall with injury or currently using an Ambulatory Assistive Device (Walker, Cane, Wheelchair, Crutches, etc.)? No PATIENT GENDER DATA: Assigned female at . status: : No status: NO. PATIENT RELEVANT IMPLANT DATA REVIEWED: Not Applicable PATIENT PRESENTS WITH AN IMPLANTABLE OR ATTACHED OPERATIONS MANAGEMENT PROFESSIONALS: No RADIOLOGY DEPARTMENT: General X-ray: Exam(s) Completed: Upper Extremity X-Ray(s): Wrist, right PERIPHERAL IV DATA: Not applicable SIGNED BY: RT Enrique(R) July 11, 2024 2:10 PM [facility] 07-11-2024 History of Present illness Narrative Chief Complaint Patient presents with: Physical HPI Natividad Conde is a 64 year old female who presents here today for a Wellness visit. Pt here today for a routine wellness visit. Working FT, caring for daughter and . Denies any stomach, bowel, or urinary issues. Sinuses: Recurrent issues with sinuses. Does take Claritin D 24 hour. Has not been taking the Claritin due to her BP being elevated. Denies any chest pain and SOB. 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 Her BP has been elevated lately, BP at work when checked by nurse was 180/86 and when she was in the ER last week her BP was 180/84. Admits to having increased stress. Never been dx with HTN or been treated for HTN in past. Eats fairly well and stays active with working FT and caring for family members. Thyroid: On current regimen of Synthroid 75 mcg once daily. Denies any missed dosages. Pain: Reports pain in different joints that she would like to have evaluated. She went to [facility] ER last week for right shoulder pain had XR of shoulder which showed arthritis and CT neck which showed the spinal stenosis. Has been having right wrist pain and swelling x 1 week. Has used topical pain relievers, Aleve prn and tried compression. No heat or ice used. Past medical history, appointments, medications, allergies reviewed. 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 Cervical disc disease History of smoking Multinodular goiter 04/14/2013 thyroiditis 04/2013 Osteopenia 05/15/2011 Previous Surgical History PAST SURGICAL HISTORY Procedure Laterality Date BIOPSY BREAST OPEN INCISIONAL 07/05/2012 left, Fibroadenoma BX BREAST PERC NEED W/GUID 05/31/2012 U/S needle core UOQ left breast, fibroadenoma and Phyllodes tumor CERV SPINE FUSN,ANTER,BELOW C2 1996 DELIVERY ONLY X 2 , low transverse LAPAROSCOPY SURG CHOLECYSTECTOMY 10/15/2018 Cholecystectomy, lap NEUROPLASTY &/TRANSPOS MEDIAN NRV CARPAL TUNNE Carpal tunnel decomp Right hand PAST SURGICAL HISTORY OF N/A 08/03/2021 Parathyroid removed TONSILLECTOMY PRIMARY/SECONDARY <AGE 13 Tonsillectomy Family History FAMILY HISTORY Problem Relation Age of Onset Diabetes Mother Hypertension Mother DVT Mother Hypertension Father Alcohol/Drug Father alcohol No Known Problems Sister No Known Problems Brother No Known Problems Brother No Known Problems Brother Heart Maternal Grandmother hardening of the arteries Osteoporosis Maternal Grandmother shrunk with age Ischemic Heart Disease Maternal Grandfather 63 NM Hypertension Maternal Aunt Diabetes Maternal Aunt Coronary Artery Disease No Family History Thyroid No Family History Blood Disease No Family History Blood Clots No Family History Factor 5 Leiden No Family History Stroke No Family History Systemic Lupus Erythematosus No Family History Multiple Sclerosis No Family History Bipolar disorder No Family History Schizophrenia No Family History Alzheimer's Disease No Family History Dementia No Family History Parkinson s Disease No Family History Aneurysm No Family History COPD No Family History Hyperlipidemia No Family History Patient Allergies ALLERGIES Allergen Reactions Levothyroxine Other: See Comments Bloating and Vuong Current Medications Current Outpatient Medications on File Prior to Visit Medication Sig levothyroxine (SYNTHROID) 75 mcg tablet Take 1 tablet by mouth once daily. Take on empty stomach. For Thyroid loratadine-pseudoephedrine ER (CLARITIN-D 24) 10-240 mg Tb24 Take 1 tablet by mouth once daily. (Patient taking differently: Take 1 tablet by mouth once daily as needed.) omeprazole (PRILOSEC) 20 mg capsule Take 1 capsule by mouth daily before breakfast. 1/2 hr before meal. eznmsuo-osjgewvrj-eqoukqn D3 500 mg-5 mcg (200 unit) per tablet Take 1 tablet by mouth once daily. (Patient taking differently: Take 1 tablet by mouth as needed.) Cyanocobalamin (VITAMIN B-12) 2,000 mcg TbER Take 1 tablet by mouth once daily. (Patient taking differently: Take 1 tablet by mouth once daily. 2500 mcg) No current facility-administered medications on file prior to visit. Social History Social History Tobacco Use Smoking status: Former Current packs/day: 0.00 Average packs/day: 0.7 packs/day for 20.0 years (14.0 ttl pk-yrs) Types: Cigarettes Start date: 1984 Quit date: 2004 Years since quittin.1 Smokeless tobacco: Never Vaping Use Vaping status: Never Used Substance Use Topics Alcohol use: Yes Comment: 6 beers on Monday during football Drug use: No EXAM: BP 170/100 Pulse 80 Resp 16 Ht 163.8 cm (5' 4.5) Wt 70.7 kg (155 lb 13.8 oz) LMP 07/27/2009 BMI 26.34 kg/m General Appearance: Well appearing, alert, in no acute distress, well-hydrated, well nourished.. Lungs: Lungs clear to auscultation. No wheezing, rhonchi, rales.. Heart: RRR without murmur, gallop, or rubs. No ectopy. Extremities: right wrist: mild diffuse swelling; tender to palpation ulnar aspect of dorsum of wrist; pain with full motion. Health Maintenance List HIV Screening Never done Cervical Cancer Screening Never done Shingrix Vaccine(1 of 2) Never done Pneumococcal Vaccine: 50+(1 of 1 - PCV) Never done Mammogram Screening due on 05/24/2017 Colorectal Cancer Screening due on 11/02/2021 Influenza Vaccine(1) due on 11/11/2024 Covid-19 Vaccine(1 - season) due on 07/11/2025 Depression Screening due on 03/18/2025 Anxiety Screening due on 03/18/2025 Annual PCP Team Chronic Disease Visit due on 07/11/2025 Lipid Screening due on 10/28/2025 DTaP,Tdap,Td Vaccine(2 - Td or Tdap) due on 02/18/2026 Diabetes Screening due on 03/18/2027 RSV Vaccine(1 - 1-dose 75+ series) due on 2036 Hepatitis C Screening Completed Data reviewed none ASSESSMENT/PLAN: 1. Wellness examination - ICD9: V70.0, ICD10: Z00.00 (primary diagnosis) - Counseled on healthy diet and regular exercise - Colorectal cancer screening - declined. Risks discussed. - Follow up for annual exam in one year 2. Elevated BP without diagnosis of hypertension - ICD9: 796.2, ICD10: R03.0 - Encouraged dietary sodium restriction/DASH diet - Recommended regular aerobic exercise. - Recommend home blood pressure monitoring, to bring results in on next visit - Start lisinopril 10 mg daily - Check labs - THYROID STIMULATING HORMONE - T4 FREE/FREE THYROXINE - COMPREHENSIVE METABOLIC PANEL - COMPLETE BLOOD COUNT 3. Right wrist pain - ICD9: 719.43, ICD10: M25.531 Probable arthritis; alejandro lcheck XR - XR WRIST GENERAL 3V PA/LAT/OBL RIGHT 4. Hypothyroidism, acquired - ICD9: 244.9, ICD10: E03.9 - Instructed patient on importance of taking on an empty stomach either first thing in the morning or at bedtime. - check TSH and T4/FTI today - THYROID STIMULATING HORMONE - T4 FREE/FREE THYROXINE Notify of lab results Follow up in 1 month to recheck BP I agree with the Chief Complaint, ROS, and Past Histories independently gathered by the clinical operations support analyst and the remaining scribed note accurately describes my personal service to the patient. Tia Hernandez MD The documentation for this note was completed by Lorie Koehler MA acting as scribe for Tia Hernandez MD. July 11, 2024 1:32 PM. Lorie Koehler MA documented in this encounter [facility] 07-11-2024 Note HNO ID: [id number] Author: TIA HERNANDEZ MD Service: ? Author Type: Physician Type: Progress Notes Filed: 07/11/2024 14:22 Note Text: Chief Complaint Patient presents with: Physical HPI Natividad Conde is a 64 year old female who presents here today for a Wellness visit. Pt here today for a routine wellness visit. Working FT, caring for daughter and . Denies any stomach, bowel, or urinary issues. Sinuses: Recurrent issues with sinuses. Does take Claritin D 24 hour. Has not been taking the Claritin due to her BP being elevated. Denies any chest pain and SOB. 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 Her BP has been elevated lately, BP at work when checked by nurse was 180/86 and when she was in the ER last week her BP was 180/84. Admits to having increased stress. Never been dx with HTN or been treated for HTN in past. Eats fairly well and stays active with working FT and caring for family members. Thyroid: On current regimen of Synthroid 75 mcg once daily. Denies any missed dosages. Pain: Reports pain in different joints that she would like to have evaluated. She went to [facility] ER last week for right shoulder pain had XR of shoulder which showed arthritis and CT neck which showed the spinal stenosis. Has been having right wrist pain and swelling x 1 week. Has used topical pain relievers, Aleve prn and tried compression. No heat or ice used. Past medical history, appointments, medications, allergies reviewed. 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 Cervical disc disease History of smoking Multinodular goiter 04/14/2013 thyroiditis 04/2013 Osteopenia 05/15/2011 Previous Surgical History PAST SURGICAL HISTORY Procedure Laterality Date BIOPSY BREAST OPEN INCISIONAL 07/05/2012 left, Fibroadenoma BX BREAST PERC NEED W/GUID 05/31/2012 U/S needle core UOQ left breast, fibroadenoma and Phyllodes tumor CERV SPINE FUSN,ANTER,BELOW C2 1996 DELIVERY ONLY X 2 , low transverse LAPAROSCOPY SURG CHOLECYSTECTOMY 10/15/2018 Cholecystectomy, lap NEUROPLASTY AND/TRANSPOS MEDIAN NRV CARPAL TUNNE Carpal tunnel decomp Right hand PAST SURGICAL HISTORY OF N/A 08/03/2021 Parathyroid removed TONSILLECTOMY PRIMARY/SECONDARY Tonsillectomy Family History FAMILY HISTORY Problem Relation Age of Onset Diabetes Mother Hypertension Mother DVT Mother Hypertension Father Alcohol/Drug Father alcohol No Known Problems Sister No Known Problems Brother No Known Problems Brother No Known Problems Brother Heart Maternal Grandmother hardening of the arteries Osteoporosis Maternal Grandmother shrunk with age Ischemic Heart Disease Maternal Grandfather 63 NM Hypertension Maternal Aunt Diabetes Maternal Aunt Coronary Artery Disease No Family History Thyroid No Family History Blood Disease No Family History Blood Clots No Family History Factor 5 Leiden No Family History Stroke No Family History Systemic Lupus Erythematosus No Family History Multiple Sclerosis No Family History Bipolar disorder No Family History Schizophrenia No Family History Alzheimer's Disease No Family History Dementia No Family History Parkinson?s Disease No Family History Aneurysm No Family History COPD No Family History Hyperlipidemia No Family History Patient Allergies ALLERGIES Allergen Reactions Levothyroxine Other: See Comments Bloating and Vuong Current Medications Current Outpatient Medications on File Prior to Visit Medication Sig levothyroxine (SYNTHROID) 75 mcg tablet Take 1 tablet by mouth once daily. Take on empty stomach. For Thyroid loratadine-pseudoephedrine ER (CLARITIN-D 24) 10-240 mg Tb24 Take 1 tablet by mouth once daily. (Patient taking differently: Take 1 tablet by mouth once daily as needed.) omeprazole (PRILOSEC) 20 mg capsule Take 1 capsule by mouth daily before breakfast. 1/2 hr before meal. yhcxnou-stobhvxnv-jcocenz D3 500 mg-5 mcg (200 unit) per tablet Take 1 tablet by mouth once daily. (Patient taking differently: Take 1 tablet by mouth as needed.) Cyanocobalamin (VITAMIN B-12) 2,000 mcg TbER Take 1 tablet by mouth once daily. (Patient taking differently: Take 1 tablet by mouth once daily. 2500 mcg) No current facility-administered medications on file prior to visit. Social History Social History Tobacco Use Smoking status: Former Current packs/day: 0.00 Average packs/day: 0.7 packs/day for 20.0 years (14.0 ttl pk-yrs) Types: Cigarettes Start date: 1984 Quit date: 2004 Years since quittin.1 Smokeless tobacco: Never Vaping Use Vaping status: Never Used Substance Use Topics Alcohol use: Yes Comment: 6 beers on Monday during football Drug use: No EXAM: BP 170/100 Pulse 80 Resp 16 Ht 163.8 cm (5' 4.5) Wt 70.7 kg (155 lb 13.8 oz) LM (more content not included)... [facility] 07-08-2024 Telephone encounter Note The following approved medication requests have been transmitted electronically. Requested Prescriptions Pending Prescriptions Disp Refills levothyroxine (SYNTHROID) 75 mcg tablet 30 tablet 11 Sig: Take 1 tablet by mouth once daily. Take on empty stomach. For Thyroid Will Bryan APRN.CNP [facility] 07-08-2024 Miscellaneous Notes The following approved medication requests have been transmitted electronically. Requested Prescriptions Pending Prescriptions Disp Refills levothyroxine (SYNTHROID) 75 mcg tablet 30 tablet 11 Sig: Take 1 tablet by mouth once daily. Take on empty stomach. For Thyroid Will Bryan APRN.CNP Patient only has one dose of medication remaining. The patient has been identified by name and date of : Yes Caregiver verified no other encounters exist for this prescription request: Yes Caregiver confirmed with patient/requestor that no other refills are due, in the near future, with this provider at this time: Yes The last office visit in the department: 06/09/2023 Does the patient have a future office visit with this provider/department: Yes 07/11/2024 Requested Prescriptions Pending Prescriptions Disp Refills levothyroxine (SYNTHROID) 75 mcg tablet 30 tablet 11 Sig: Take 1 tablet by mouth once daily. Take on empty stomach. For Thyroid Chioma Richmond RN July 08, 2024 11:37 AM documented in this encounter [facility] 07-08-2024 Telephone encounter Note Patient only has one dose of medication remaining. The patient has been identified by name and date of : Yes Caregiver verified no other encounters exist for this prescription request: Yes Caregiver confirmed with patient/requestor that no other refills are due, in the near future, with this provider at this time: Yes The last office visit in the department: 06/09/2023 Does the patient have a future office visit with this provider/department: Yes 07/11/2024 Requested Prescriptions Pending Prescriptions Disp Refills levothyroxine (SYNTHROID) 75 mcg tablet 30 tablet 11 Sig: Take 1 tablet by mouth once daily. Take on empty stomach. For Thyroid Chioma Richmond RN July 08, 2024 11:37 AM [facility] 07-07-2024 Telephone encounter Note Patient calling with medication/refill: Needing refill of Synthroid, will run out on Monday before scheduled appointment on . Do you have enough medication to last until the office reopens? Yes. Patient denies any new or worsening symptoms of which a provider is not aware:Yes. Patient has enough medication to last until Monday. Advised to call office in the morning when they open to request refill. [facility] 07-07-2024 Miscellaneous Notes Patient calling with medication/refill: Needing refill of Synthroid, will run out on Monday before scheduled appointment on . Do you have enough medication to last until the office reopens? Yes. Patient denies any new or worsening symptoms of which a provider is not aware:Yes. Patient has enough medication to last until Monday. Advised to call office in the morning when they open to request refill. documented in this encounter [facility] 07-02-2024 Note Patient Outreach (FA MPWS) NATIVIDAD CONDE ([id number]) 1960 F Date Time Provider Department 07/02/24 TIA HERNANDEZ During your visit today, we recorded the following information about you: Allergies As of Date: 07/02/2024 Noted Allergy Reaction LEVOTHYROXINE 09/18/2017 14 - Other: See Comments Comments: Bloating and Vuong Date Reviewed: 03/18/2024 Reviewed by: Mary Adair LPN - Fully Assessed Visit Diagnosis:Encounter for screening mammogram for breast cancer [Z12.31] Order(s):[facility] SCREENING [facility] ANNA [2500200] Order #: [id number] FUTURE Prescriptions as of 08/02/2024 - lisinopril (ZESTRIL) 10 mg tablet Take 1 tablet by mouth once daily. - levothyroxine (SYNTHROID) 75 mcg tablet Take 1 tablet by mouth once daily. Take on empty stomach. For Thyroid - loratadine-pseudoephedrine ER (CLARITIN-D 24) 10-240 mg Tb24 Take 1 tablet by mouth once daily. - omeprazole (PRILOSEC) 20 mg capsule Take 1 capsule by mouth daily before breakfast. 1/2 hr before meal. - muvrmkq-smpwgvwqr-arizggi D3 500 mg-5 mcg (200 unit) per tablet Take 1 tablet by mouth once daily. - Cyanocobalamin (VITAMIN B-12) 2,000 mcg TbER Take 1 tablet by mouth once daily. Meds Comments as of 03/11/2022: Nicholas [place]lan Problem List As Of Date 07/02/2024 Noted Resolved History of smoking [Z87.891] Cervical disc disease [M50.90] Abnormal mammogram, unspecified [R92.8] 05/22/2012 Multinodular goiter [E04.2] Osteopenia [M85.80] 02/16/2021 Nondisplaced fracture of base of fifth metacarp*07/21/2016 Gallbladder polyp [K82.4] 10/03/2018 Class 1 obesity due to excess calories without *10/03/2018 07/21/2021 Allergies [T78.40XA] 10/28/2020 Localized osteoporosis without current patholog*02/16/2021 GERD (gastroesophageal reflux disease) [K21.9] 07/21/2021 Primary hyperparathyroidism (HCC) [E21.0] 07/21/2021 Hypothyroidism [E03.9] 03/18/2024 Encounter Status:Closed by EPIC, PRODUSER on 08/02/24 [facility] 03-18-2024 Note HNO ID: [id number] Author: RICARDO LUNA MD Service: ? Author Type: Physician Type: Progress Notes Filed: 03/18/2024 14:19 Note Text: This note was created using ABSriter. Subjective Patient presents with: Hypertension ER F/U Natividad Conde is a 63 year old female. PCP Tia Hernandez MD. She developed dizziness and palpitations at work 1 week ago. Work nurse checked her BP and it was 230/88 so she was referred to the ED 03/06/24. Hypertension was confirmed which improved with observation. Cardiac work up was negative. She was discharged with lorazepam as needed, as she was also dealing with family stressors. She was normally not anxious, and had no history of hypertension. Initial symptoms have resolved. She took sinus medication once in a while, last one 2 weeks ago. Review of Systems Constitutional: Negative for appetite change, diaphoresis, fatigue and unexpected weight change. Eyes: Negative for visual disturbance. Respiratory: Negative for chest tightness and shortness of breath. Cardiovascular: Negative for chest pain, palpitations and leg swelling. Gastrointestinal: Negative for abdominal pain, diarrhea, nausea and vomiting. Genitourinary: Negative for difficulty urinating. Skin: Negative for color change. Neurological: Negative for dizziness, weakness, numbness and headaches. ACTIVE PROBLEM LIST History of Smoking Cervical Disc Disease Abnormal Mammogram, Unspecified Multinodular Goiter Nondisplaced Fracture of Base of Fifth Metacarpal Bone of Right Hand With Routine Healing Gallbladder Polyp Allergies Localized Osteoporosis Without Current Pathological Fracture Gerd (Gastroesophageal Reflux Disease) Primary Hyperparathyroidism (Hcc) Social History Tobacco Use Smoking status: Former Current packs/day: 0.00 Average packs/day: 0.7 packs/day for 20.0 years (14.0 ttl pk-yrs) Types: Cigarettes Start date: 1984 Quit date: 2004 Years since quittin.8 Smokeless tobacco: Never Vaping Use Vaping status: Never Used Substance Use Topics Alcohol use: Yes Comment: 6 beers on Monday during football Drug use: No Current Outpatient Medications Medication Sig loratadine-pseudoephedrine ER (CLARITIN-D 24) 10-240 mg Tb24 Take 1 tablet by mouth once daily. (Patient taking differently: Take 1 tablet by mouth once daily as needed.) omeprazole (PRILOSEC) 20 mg capsule Take 1 capsule by mouth daily before breakfast. 1/2 hr before meal. levothyroxine (SYNTHROID) 75 mcg tablet Take 1 tablet by mouth once daily. Take on empty stomach. For Thyroid cwyfxot-gsiqeobqb-yujmzro D3 500 mg-5 mcg (200 unit) per tablet Take 1 tablet by mouth once daily. (Patient taking differently: Take 1 tablet by mouth as needed.) Cyanocobalamin (VITAMIN B-12) 2,000 mcg TbER Take 1 tablet by mouth once daily. (Patient taking differently: Take 1 tablet by mouth once daily. 2500 mcg) No current facility-administered medications for this visit. Objective BP 132/74 (BP Site: Left Arm, BP Position: Sitting, BP Cuff Size: Large Adult) Pulse 72 Temp 37.1 ?C (98.8 ?F) (Temporal) Wt 71.6 kg (157 lb 13.6 oz) LMP 07/27/2009 BMI 26.68 kg/m? Physical Exam Constitutional: General: She is not in acute distress. Appearance: She is not ill-appearing or diaphoretic. HENT: Head: Normocephalic. Eyes: Extraocular Movements: Extraocular movements intact. Conjunctiva/sclera: Conjunctivae normal. Cardiovascular: Rate and Rhythm: Normal rate and regular rhythm. Pulses: Normal pulses. Heart sounds: No murmur heard. No gallop. Pulmonary: Breath sounds: Normal breath sounds. Abdominal: Palpations: Abdomen is soft. Tenderness: There is no abdominal tenderness. Comments: No bruit. Musculoskeletal: Right lower leg: No edema. Left lower leg: No edema. Lymphadenopathy: Cervical: No cervical adenopathy. Neurological: General: No focal deficit present. Mental Status: She is alert. Psychiatric: Mood and Affect: Mood normal. Assessment and Plan 1. Hypertension, unspecified type - ICD9: 401.9, ICD10: I10 (primary diagnosis) Paroxysmal. - CATECHOLAMINES FRA - Low sodium diet. 2. Palpitations - ICD9: 785.1, ICD10: R00.2 Monitor. - BASIC METABOLIC PANEL - CATECHOLAMINES FRA 3. Primary hyperparathyroidism (HCC) - ICD9: 252.01, ICD10: E21.0 - Recheck blood chemistry. 4. Hypothyroidism, unspecified type - ICD9: 244.9, ICD10: E03.9 - continue current dose of Synthroid. - THYROID STIMULATING HORMONE - T4 FREE/FREE THYROXINE 5. Screening for depression - ICD9: V79.0, ICD10: Z13.31 Neg. - DEPRESSION SCREENING 6. Encounter for screening examination for other mental health and behavioral disorders - ICD9: V79.8, ICD10: Z13.39 Neg. - ANXIETY SCREENING Ricardo Luna MD [facility] 03-18-2024 History of Present illness Narrative This note was created using ABSriter. Subjective Patient presents with: Hypertension ER F/U Natividad Conde is a 63 year old female. PCP Tia Hernandez MD. She developed dizziness and palpitations at work 1 week ago. Work nurse checked her BP and it was 230/88 so she was referred to the ED 03/06/24. Hypertension was confirmed which improved with observation. Cardiac work up was negative. She was discharged with lorazepam as needed, as she was also dealing with family stressors. She was normally not anxious, and had no history of hypertension. Initial symptoms have resolved. She took sinus medication once in a while, last one 2 weeks ago. Review of Systems Constitutional: Negative for appetite change, diaphoresis, fatigue and unexpected weight change. Eyes: Negative for visual disturbance. Respiratory: Negative for chest tightness and shortness of breath. Cardiovascular: Negative for chest pain, palpitations and leg swelling. Gastrointestinal: Negative for abdominal pain, diarrhea, nausea and vomiting. Genitourinary: Negative for difficulty urinating. Skin: Negative for color change. Neurological: Negative for dizziness, weakness, numbness and headaches. ACTIVE PROBLEM LIST History of Smoking Cervical Disc Disease Abnormal Mammogram, Unspecified Multinodular Goiter Nondisplaced Fracture of Base of Fifth Metacarpal Bone of Right Hand With Routine Healing Gallbladder Polyp Allergies Localized Osteoporosis Without Current Pathological Fracture Gerd (Gastroesophageal Reflux Disease) Primary Hyperparathyroidism (Hcc) Social History Tobacco Use Smoking status: Former Current packs/day: 0.00 Average packs/day: 0.7 packs/day for 20.0 years (14.0 ttl pk-yrs) Types: Cigarettes Start date: 1984 Quit date: 2004 Years since quittin.8 Smokeless tobacco: Never Vaping Use Vaping status: Never Used Substance Use Topics Alcohol use: Yes Comment: 6 beers on Monday during football Drug use: No Current Outpatient Medications Medication Sig loratadine-pseudoephedrine ER (CLARITIN-D 24) 10-240 mg Tb24 Take 1 tablet by mouth once daily. (Patient taking differently: Take 1 tablet by mouth once daily as needed.) omeprazole (PRILOSEC) 20 mg capsule Take 1 capsule by mouth daily before breakfast. 1/2 hr before meal. levothyroxine (SYNTHROID) 75 mcg tablet Take 1 tablet by mouth once daily. Take on empty stomach. For Thyroid xrrrxrp-cynekxnzr-veqqone D3 500 mg-5 mcg (200 unit) per tablet Take 1 tablet by mouth once daily. (Patient taking differently: Take 1 tablet by mouth as needed.) Cyanocobalamin (VITAMIN B-12) 2,000 mcg TbER Take 1 tablet by mouth once daily. (Patient taking differently: Take 1 tablet by mouth once daily. 2500 mcg) No current facility-administered medications for this visit. Objective BP 132/74 (BP Site: Left Arm, BP Position: Sitting, BP Cuff Size: Large Adult) Pulse 72 Temp 37.1 C (98.8 F) (Temporal) Wt 71.6 kg (157 lb 13.6 oz) LMP 07/27/2009 BMI 26.68 kg/m Physical Exam Constitutional: General: She is not in acute distress. Appearance: She is not ill-appearing or diaphoretic. HENT: Head: Normocephalic. Eyes: Extraocular Movements: Extraocular movements intact. Conjunctiva/sclera: Conjunctivae normal. Cardiovascular: Rate and Rhythm: Normal rate and regular rhythm. Pulses: Normal pulses. Heart sounds: No murmur heard. No gallop. Pulmonary: Breath sounds: Normal breath sounds. Abdominal: Palpations: Abdomen is soft. Tenderness: There is no abdominal tenderness. Comments: No bruit. Musculoskeletal: Right lower leg: No edema. Left lower leg: No edema. Lymphadenopathy: Cervical: No cervical adenopathy. Neurological: General: No focal deficit present. Mental Status: She is alert. Psychiatric: Mood and Affect: Mood normal. Assessment and Plan 1. Hypertension, unspecified type - ICD9: 401.9, ICD10: I10 (primary diagnosis) Paroxysmal. - CATECHOLAMINES FRA - Low sodium diet. 2. Palpitations - ICD9: 785.1, ICD10: R00.2 Monitor. - BASIC METABOLIC PANEL - CATECHOLAMINES FRA 3. Primary hyperparathyroidism (HCC) - ICD9: 252.01, ICD10: E21.0 - Recheck blood chemistry. 4. Hypothyroidism, unspecified type - ICD9: 244.9, ICD10: E03.9 - continue current dose of Synthroid. - THYROID STIMULATING HORMONE - T4 FREE/FREE THYROXINE 5. Screening for depression - ICD9: V79.0, ICD10: Z13.31 Neg. - DEPRESSION SCREENING 6. Encounter for screening examination for other mental health and behavioral disorders - ICD9: V79.8, ICD10: Z13.39 Neg. - ANXIETY SCREENING Ricardo Luna MD documented in this encounter [facility] 03-18-2024 Telephone encounter Note Pt reports she just left work, and had her BP checked while at work- 188/97. Reports she does not have history of high BP, and does not take BP medication. Reports her levothyroxine pill does not look the same as her last Rx and she is going into the pharmacy to have pharmacist check it to make sure it's levothyroxine 75 mcg. Reports she has had high BP since she started taking this pill. Patient believes her levothyroxine pill is causing the elevated BP. No CP. No palpitations. Sometimes has lightheadedness. Reports she is having eye surgery tomorrow and wants to see her pcp today to make sure her BP is ok. No openings in famp. Scheduled same day with Dr. Luna. [facility] 03-18-2024 Miscellaneous Notes Pt reports she just left work, and had her BP checked while at work- 188/97. Reports she does not have history of high BP, and does not take BP medication. Reports her levothyroxine pill does not look the same as her last Rx and she is going into the pharmacy to have pharmacist check it to make sure it's levothyroxine 75 mcg. Reports she has had high BP since she started taking this pill. Patient believes her levothyroxine pill is causing the elevated BP. No CP. No palpitations. Sometimes has lightheadedness. Reports she is having eye surgery tomorrow and wants to see her pcp today to make sure her BP is ok. No openings in famp. Scheduled same day with Dr. Luna. documented in this encounter [facility] 11-17-2023 Telephone encounter Note Forms faxed to [facility] [employer] ATTN: Lula Barrera at [phone]. Lorie Koehler MA [facility] 11-17-2023 Miscellaneous Notes Forms faxed to [employer] ATTN: Lula Barrera at [phone]. Lorie Koehler MA Forms done Tia Hernandez MD Type of form: Intermittent FMLA forms for Employer [email or web address] for pt's Daughter and Spouse. (Also documented in there chart) Form received via walk in When form is completed, Fax to [phone]. Call pt to see if she wants to brick picker originals. Form has been forwarded to Dr. Mary Yoder LPN documented in this encounter [facility] 11-15-2023 Telephone encounter Note The following approved medication requests have been transmitted electronically. Requested Prescriptions Pending Prescriptions Disp Refills omeprazole (PRILOSEC) 20 mg capsule 30 capsule 11 Sig: Take 1 capsule by mouth daily before breakfast. 1/2 hr before meal. Corina Jordan APRN.CNP [facility] 11-15-2023 Miscellaneous Notes The following approved medication requests have been transmitted electronically. Requested Prescriptions Pending Prescriptions Disp Refills omeprazole (PRILOSEC) 20 mg capsule 30 capsule 11 Sig: Take 1 capsule by mouth daily before breakfast. 1/2 hr before meal. Corina Jordan APRN.CNP The patient has been identified by name and date of : Yes Caregiver verified no other encounters exist for this prescription request: Yes Caregiver confirmed with patient/requestor that no other refills are due, in the near future, with this provider at this time: Yes The last office visit in the department: 06/09/2023 Does the patient have a future office visit with this provider/department: No None Requested Prescriptions Pending Prescriptions Disp Refills omeprazole (PRILOSEC) 20 mg capsule 30 capsule 11 Sig: Take 1 capsule by mouth daily before breakfast. 1/2 hr before meal. Chioma Richmond RN November 15, 2023 12:00 PM documented in this encounter [facility] 11-15-2023 Telephone encounter Note The patient has been identified by name and date of : Yes Caregiver verified no other encounters exist for this prescription request: Yes Caregiver confirmed with patient/requestor that no other refills are due, in the near future, with this provider at this time: Yes The last office visit in the department: 06/09/2023 Does the patient have a future office visit with this provider/department: No None Requested Prescriptions Pending Prescriptions Disp Refills omeprazole (PRILOSEC) 20 mg capsule 30 capsule 11 Sig: Take 1 capsule by mouth daily before breakfast. 1/2 hr before meal. Chioma Richmond RN November 15, 2023 12:00 PM [facility] 11-14-2023 Telephone encounter Note Forms done Tia Hernandez MD [facility] 11-04-2023 Telephone encounter Note Type of form: Intermittent FMLA forms for Employer [employer] for pt's Daughter and Spouse. (Also documented in there chart) Form received via walk in When form is completed, Fax to [phone]. Call pt to see if she wants to brick picker originals. Form has been forwarded to Dr. Mary Yoder LPN [facility] 06-15-2023 Miscellaneous Notes Pt notified. Lorie Koehler Ma Please notify patient that her bone density test is the same as it was the last time. Recheck in 2 years Tia Hernandez MD documented in this encounter [facility] 06-09-2023 History of Present illness Narrative Radiology Service Progress Note PATIENT NAME: Natividad Conde DATE OF SERVICE: June 09, 2023 TIME: 8:38 AM PATIENT IDENTITY VERIFICATION COMPLETED USING TWO (2) IDENTIFIERS: Name and Date of confirmed by patient verbally. FALL SCREENING: Has the patient had 2 falls in the last year or 1 fall with injury or currently using an Ambulatory Assistive Device (Walker, Cane, Wheelchair, Crutches, etc.)? No PATIENT GENDER DATA: Female. status: : No status: NO. PATIENT RELEVANT IMPLANT DATA REVIEWED: Yes PATIENT PRESENTS WITH AN IMPLANTABLE OR ATTACHED OPERATIONS MANAGEMENT PROFESSIONALS: No RADIOLOGY DEPARTMENT: General X-ray: Exam(s) Completed: Pelvis X-Ray: Pelvis with Hip Right PERIPHERAL IV DATA: Not applicable SIGNED BY: Telma Ruiz RT(R) June 09, 2023 8:38 AM documented in this encounter [facility] 01-24-2023 Miscellaneous Notes Pt notified. Lorie Koehler Ma Radiology is not seeing a goiter, only a single nodule. Will Bryan APRN.TIGIST Pt called and is notified of providers results and instructions. Pt states she has been getting Thyroid US for 15 years now due to a good sized non-toxic goiter on her thyroid. I told her I could have provider look at previous US. She said she would wait for her normal PCP. Celeste Barney, RN Please let the patient know that her thyroid is normal size. She has a few nodules that are very small. Too small to even evaluate. No biopsy or needed rescanning recommended by radiology. Will Bryan APRN.TIGIST Patient calling asking for results of Thyroid Ultrasound done on . Please advise 01/20/2023 4:44 PM - Radiology, Oru In Impression IMPRESSION: Thyroid nodule(s) present is/are clinically insignificant. No surveillance is advised. TI-RADS Category: TR4 ACR Recommendation: TI-RADS 4 nodule. No FNA or follow-up imaging is advised. ACR recommendations are strictly based on the size and imaging appearance at the time of the exam and do not consider stability or previous biopsy results. Solar [employer] Advisor: SWAPNA Transcribe Date/Time: Jan 20 2023 4:38P Dictated by : CHARLEY SWIFT MD This examination was interpreted and the report reviewed and electronically signed by: CHARLEY SWIFT MD on Jan 20 2023 4:42PM EST Results-Findings * * *Final Report* * * DATE OF EXAM: Jan 19 2023 4:13PM [facility] 1048 - US THYROID/PARATHYROID / PROCEDURE REASON: multiple diagnoses * * * * Physician Interpretation * * * * EXAMINATION: THYROID ULTRASOUND CLINICAL HISTORY: Hx of parathyroidectomy (HCC) Multinodular goiter TECHNIQUE: Sonography and Doppler imaging of the thyroid was performed. Images were obtained and stored in a permanent archive. MQ: UST_1 COMPARISON: Ultrasound thyroid on 03/01/2021 RESULT: Right Lobe: 4.3 x 1.6 x 2.0 cm; heterogeneous echogenicity, increased vascular flow on color Doppler imaging. Left Lobe: 3.3 x 1.1 x 1.3 cm; heterogeneous echogenicity, increased vascular flow on color Doppler imaging. Isthmus: 0.1 cm The most suspicious thyroid nodule(s) (up to four) as below: NODULE 1: Location: Left superior Size: 0.6 x 0.6 x 0.4 cm, previously 0.6 x 0.5 x 0.4 cm. Characteristics: Composition: Solid or almost completely solid, 2 points Echogenicity: Hypoechoic, 2 points Shape: Yhhwu-mmcf-mart, 0 points Margin: Ill-defined, 0 points Echogenic foci (add points for all that apply): None, 0 points Internal vascularity: present Interval growth: Stable TI-RADS Category: TR4 ACR Recommendation: TI-RADS 4 nodule. No FNA or follow-up imaging is advised. documented in this encounter [facility] 01-19-2023 History of Present illness Narrative Radiology Service Progress Note PATIENT NAME: Natividad Conde DATE OF SERVICE: January 19, 2023 TIME: 4:16 PM PATIENT IDENTITY VERIFICATION COMPLETED USING TWO (2) IDENTIFIERS: Name and Date of confirmed by patient verbally. FALL SCREENING: Has the patient had 2 falls in the last year or 1 fall with injury or currently using an Ambulatory Assistive Device (Walker, Cane, Wheelchair, Crutches, etc.)? No PATIENT GENDER DATA: Female. status: : No status: NO. PATIENT RELEVANT IMPLANT DATA REVIEWED: Not Applicable RADIOLOGY DEPARTMENT: Ultrasound PERIPHERAL IV DATA: Not applicable SIGNED BY: Alison Costa RDMS RVT January 19, 2023 4:16 PM documented in this encounter [facility] 01-11-2023 Miscellaneous Notes Patient notified and voiced her understanding. Called and left a voicemail for the Patient to call back and ask for a nurse to receive the providers message. Celeste Barney RN Please notify patient that her lab results show that her thyroid is underactive, so she would benefit from taking a thyroid medication, if she is willing to try this. I have ordered this for once daily on an empty stomach, and we should recheck labs and office visit in 3 months Tia Hernandez MD documented in this encounter [facility] 01-09-2023 History of Present illness Narrative Chief Complaint Patient presents with: Follow Up HPI Natividad Conde is a 62 year old female who presents here today for follow up. Pt here today for a f/u visit. Was originally seen by Miley Richmond CNP on 12/12/22 for a lump on right shoulder area near her neck for 1 week. Pt stated that it could change in size and pain was described like a pressure.US was ordered for further evaluation. US completed on 12/14/22 showing a tiny lymph node measuring 4 x 4 x 5 mm. No solid mass or lesions noted on US. Pt returned to the office on 12/23/22 with neck swelling bilaterally with the right side being worse. Also noticing a lymph node on the left side. Pt uses Lidocaine roller and Aleve for pain. Denied any recent illness. Hx of smoking. CT scan completed on 01/04/23 with no suspicious soft tissue mass noted. Intact cervical fusion C4-C6 and cervical spondylosis noted. No high-grade spinal stenosis, but there is foraminal narrowing most prominently at C3-C4 and C6-C7 which may contribute to radiculopathy. Pt noting that she has b/l swelling on both sides. The more she works the more it swells, working 10 hour days, 40-50 hour weeks. Does a lot of overhead activity at work. With increased activity the swelling seems to get worse. Last week on Monday she had so much pressure in her neck she couldn't do much and was very tired. She ended up taking 2 Aleve and drank a beer and laid down. Aleve tends to make her tired. The weather seemed to affect her that day. Pt notes that she was worried about something wrong with her hardware. Worried about her thyroid since she's had issues and part of her thyroid removed. Asking about having thyroid labs done. Notes weight gain of 5 lbs since her last OV. Feeling very tired and just not well. Past medical history, appointments, medications, allergies reviewed. 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 Cervical disc disease History of smoking Multinodular goiter 04/14/2013 thyroiditis 04/2013 Osteopenia 05/15/2011 Previous Surgical History PAST SURGICAL HISTORY Procedure Laterality Date BIOPSY BREAST OPEN INCISIONAL 07/05/2012 left, Fibroadenoma BX BREAST PERC NEED W/GUID 05/31/2012 U/S needle core UOQ left breast, fibroadenoma and Phyllodes tumor CERV SPINE FUSN,ANTER,BELOW C2 1996 DELIVERY ONLY X 2 , low transverse LAPAROSCOPY SURG CHOLECYSTECTOMY 10/15/2018 Cholecystectomy, lap NEUROPLASTY &/TRANSPOS MEDIAN NRV CARPAL TUNNE Carpal tunnel decomp Right hand PAST SURGICAL HISTORY OF N/A 08/03/2021 Parathyroid removed TONSILLECTOMY PRIMARY/SECONDARY <AGE 13 Tonsillectomy Family History FAMILY HISTORY Problem Relation Age of Onset Diabetes Mother Hypertension Mother DVT Mother Hypertension Father Alcohol/Drug Father alcohol No Known Problems Sister No Known Problems Brother No Known Problems Brother No Known Problems Brother Heart Maternal Grandmother hardening of the arteries Osteoporosis Maternal Grandmother shrunk with age Ischemic Heart Disease Maternal Grandfather 63 NM Hypertension Maternal Aunt Diabetes Maternal Aunt Coronary Artery Disease No Family History Thyroid No Family History Blood Disease No Family History Blood Clots No Family History Factor 5 Leiden No Family History Stroke No Family History Systemic Lupus Erythematosus No Family History Multiple Sclerosis No Family History Bipolar disorder No Family History Schizophrenia No Family History Alzheimer's Disease No Family History Dementia No Family History Parkinson s Disease No Family History Aneurysm No Family History COPD No Family History Hyperlipidemia No Family History Patient Allergies ALLERGIES Allergen Reactions Levothyroxine Other: See Comments Bloating and Vuong Current Medications Current Outpatient Medications on File Prior to Visit Medication Sig loratadine-pseudoephedrine ER (CLARITIN-D 24) 10-240 mg Tb24 Take 1 tablet by mouth once daily. omeprazole (PRILOSEC) 20 mg capsule Take 1 capsule by mouth daily before breakfast. 1/2 hr before meal. wufxrob-quegkpsya-czznpqy D3 500 mg-5 mcg (200 unit) per tablet Take 1 tablet by mouth once daily. Cyanocobalamin (VITAMIN B-12) 2,000 mcg TbER Take 1 tablet by mouth once daily. (Patient taking differently: Take 1 tablet by mouth once daily. 2500 mcg ) No current facility-administered medications on file prior to visit. Social History Social History Tobacco Use Smoking status: Former Packs/day: 0.70 Years: 20.00 Additional pack years: 0.00 Total pack years: 14.00 Types: Cigarettes Quit date: 2004 Years since quittin.6 Smokeless tobacco: Never Vaping Use Vaping Use: Never used Substance Use Topics Alcohol use: Yes Comment: 6 beers on Monday during football Drug use: No EXAM: BP 148/88 Pulse 78 Resp 16 Wt 73 kg (161 lb) LMP 07/27/2009 BMI 27.21 kg/m General Appearance: Well appearing, alert, in no acute distress, well-hydrated, well nourished.. Neck: normal exam, no masses or swelling noted, no thyomegaly Lungs: Lungs clear to auscultation. No wheezing, rhonchi, rales.. Heart: RRR without murmur, gallop, or rubs. No ectopy. Health Maintenance List PAP TESTING Never done HPV TESTING Never done SHINGRIX VACCINE(1 of 2) Never done MAMMOGRAM due on 05/24/2017 COLORECTAL CANCER SCREENING due on 11/02/2021 DEPRESSION ASSESSMENT due on 05/15/2022 HIV SCREENING due on 03/11/2023 COVID-19 VACCINE(1) due on 03/11/2023 INFLUENZA(1) due on 01/13/2023 DIABETES SCREEN due on 09/13/2024 LIPID SCREEN due on 10/28/2025 DTAP,TDAP,TD(2 - Td or Tdap) due on 02/18/2026 HEPATITIS C SCREENING Completed Data reviewed Epic ASSESSMENT/PLAN: 1. Localized swelling, mass and lump, neck - ICD9: 784.2, ICD10: R22.1 (primary diagnosis) - Check labs 2. Hx of parathyroidectomy (HCC) - ICD9: 252.8, ICD10: E89.2 - check labs, US - TSH BLD - PTH INTACT BLD - US THYROID/PARATHYROID 3. Weight gain - ICD9: 783.1, ICD10: R63.5 - Check labs - COMP METABOLIC PANEL - PTH INTACT BLD 4. Fatigue, unspecified type - ICD9: 780.79, ICD10: R53.83 - Check labs - CBC + DIFF - COMP METABOLIC PANEL - TSH BLD - PTH INTACT BLD 5. Multinodular goiter - ICD9: 241.1, ICD10: E04.2 - Check labs and US - TSH BLD - PTH INTACT BLD - US THYROID/PARATHYROID 6. Musculoskeletal neck pain - ICD9: 723.1, ICD10: M54.2 - Aleve and Heat Complete labs today and schedule US. Will call with results. I agree with the Chief Complaint, ROS, and Past Histories independently gathered by the clinical operations support analyst and the remaining scribed note accurately describes my personal service to the patient. Medical Decision Making: Problems: Low: Acute, uncomplicated illness or injury Data: Unique test(s) ordered: 3+ Medical Decision Making Level: 3 - Low Tia Hernandez MD The documentation for this note was completed by Marilynn Salas Ma acting as scribe for Tia Hernandez MD. January 09, 2023 3:46 PM. Marilynn Salas Ma documented in this encounter [facility] 01-06-2023 Miscellaneous Notes TC to pt, notified of results/provider response. Pt states this has to be related to her thyroid because she googled her symptoms and feels this is thyroid related. Appt scheduled with PCP per pt request. Jone Rudd LPN It very well could be musculoskeletal, especially if she notices that it worse after she is doing a lot of overhead lifting/reaching. The good news is that they are not seeing any abnormal lymph nodes or masses. Patient returned call and went over results, notes from Miley Richmond RAIL LOADER, patient is asking then why does she have the swelling in her neck? She said she has hardware from previous neck surgery. Phoned patient and Vm left for her to return call to review results. ----- Message from Miley Richmond APRN.CNP sent at 01/04/2023 5:32 PM EDT ----- Can please let patient know that the CT does not show any abnormal masses in the neck. She does have degenerative changes in the spine in her neck. Miley Richmond APRN.CNP documented in this encounter [facility] 01-04-2023 History of Present illness Narrative Radiology Service Progress Note DATE OF SERVICE: January 04, 2023 TIME: 3:48 PM PATIENT IDENTITY VERIFICATION COMPLETED USING TWO (2) STANDARD IDENTIFIERS: Name and Date of confirmed by patient verbally. FALL SCREENING: Has the patient had 2 falls in the last year or 1 fall with injury or currently using an Ambulatory Assistive Device (Walker, Cane, Wheelchair, Crutches, etc.)? No PATIENT GENDER DATA: Female. status: : No status: NO. PATIENT RELEVANT IMPLANT DATA REVIEWED: Yes ALLERGIES: Reviewed and unchanged CONTRAST ALLERGY: NO. EXAM: CT -CONTRAST INDUCED NEPHROPATHY RISK FACTORS: Patient age > 60 years CREATININE: Creatinine Date Value Ref Range Status 12/23/2022 0.67 0.58 - 0.96 mg/dL Final 03/08/2022 0.60 0.58 - 0.96 mg/dL Final 09/13/2021 0.69 0.58 - 0.96 mg/dL Final Estimated Glomerular Filtration Rate Date Value Ref Range Status 12/23/2022 100 >=60 mL/min/1.73m Final Comment: Estimated Glomerular Filtration Rate (eGFR) is calculated using the 2020 CKD-EPI creatinine equation. This equation utilizes serum creatinine, sex, and age as parameters. The creatinine assay has traceable calibration to isotope dilution-mass spectrometry. Refer to KDIGO guidelines for clinical interpretation. In patients with unstable renal function, e.g. those with acute kidney injury, the eGFR may not accurately reflect actual GFR. eGFR- Date Value Ref Range Status 02/18/2021 >60 Final P.O.C.T. RESULTS: POC done: Yes, See Lab Tab January 04, 2023 TREATMENT: N/A PERIPHERAL IV DATA: Ambulatory: A peripheral IV was started in the Left antecubital site with a Angio cath: 22 gauge. RADIOLOGY DEPARTMENT: CT; Exam(s) Completed: Neck SIGNATURE: RT Nicki(R) PATIENT NAME: Natividad Conde DATE: January 04, 2023 TIME: 3:48 PM documented in this encounter [facility] 12-27-2022 Miscellaneous Notes Patient calls and notified of results and providers instructions. Patient verbalizes understanding. Merline Rachel RN TC to patient with no answer. Left VM to return call to office to receive results. MARTY Clay ----- Message from Miley Richmond APRN.FLAVORING OIL FILTERER sent at 12/26/2022 3:35 PM EDT ----- Can please let patient know that her kidney function was normal. Miley Richmond APRN.CNP documented in this encounter [facility] 12-23-2022 Instructions Miley Richmond APRN.FLAVORING OIL FILTERER - 12/23/2022 8:[address] documented in this encounter [facility] 12-23-2022 History of Present illness Narrative This is a 62 year old female who presents today with: Patient presents with: neck swelling: Both sides of the neck, right side worse HISTORY OF PRESENT ILLNESS: Natividad Conde is a 62 year old female. Patient presents with: neck swelling: Both sides of the neck, right side worse Pt presents today with complaint of neck swelling. She was in on 12/12 with complaint of right neck/supraclavicular swelling. We obtained an ultrasound which was essentially negative except a small lymph node. She continues to complain of pain and swelling in the area, but now notices that she is starting with lymph nodes on the left side. She works a lot with lifting overhead. She takes aleve or a lidocaine roller for pain. No recent sickness. PAST MEDICAL HISTORY: PAST MEDICAL HISTORY Diagnosis Date Arthritis in left hand Cervical disc disease History of smoking Multinodular goiter 04/14/2013 thyroiditis 04/2013 Osteopenia 05/15/2011 PAST SURGICAL HISTORY Procedure Laterality Date BIOPSY BREAST OPEN INCISIONAL 07/05/2012 left, Fibroadenoma BX BREAST PERC NEED W/GUID 05/31/2012 U/S needle core UOQ left breast, fibroadenoma and Phyllodes tumor CERV SPINE FUSN,ANTER,BELOW C2 1996 DELIVERY ONLY X 2 , low transverse LAPAROSCOPY SURG CHOLECYSTECTOMY 10/15/2018 Cholecystectomy, lap NEUROPLASTY &/TRANSPOS MEDIAN NRV CARPAL TUNNE Carpal tunnel decomp Right hand PAST SURGICAL HISTORY OF N/A 08/03/2021 Parathyroid removed TONSILLECTOMY PRIMARY/SECONDARY <AGE 13 Tonsillectomy ALLERGIES Levothyroxine MEDICATIONS Current Outpatient Medications Medication Sig omeprazole (PRILOSEC) 20 mg capsule Take 1 capsule by mouth daily before breakfast. 1/2 hr before meal. loratadine-pseudoephedrine ER (CLARITIN-D 24) 10-240 mg Tb24 Take 1 tablet by mouth once daily. mtedwsb-tbbgxlmme-snysgan D3 500 mg-5 mcg (200 unit) per tablet Take 1 tablet by mouth once daily. Cyanocobalamin (VITAMIN B-12) 2,000 mcg TbER Take 1 tablet by mouth once daily. (Patient taking differently: Take 1 tablet by mouth once daily. 2500 mcg ) No current facility-administered medications for this visit. FAMILY HISTORY Problem Relation Age of Onset Diabetes Mother Hypertension Mother DVT Mother Hypertension Father Alcohol/Drug Father alcohol No Known Problems Sister No Known Problems Brother No Known Problems Brother No Known Problems Brother Heart Maternal Grandmother hardening of the arteries Osteoporosis Maternal Grandmother shrunk with age Ischemic Heart Disease Maternal Grandfather 63 NM Hypertension Maternal Aunt Diabetes Maternal Aunt Coronary Artery Disease No Family History Thyroid No Family History Blood Disease No Family History Blood Clots No Family History Factor 5 Leiden No Family History Stroke No Family History Systemic Lupus Erythematosus No Family History Multiple Sclerosis No Family History Bipolar disorder No Family History Schizophrenia No Family History Alzheimer's Disease No Family History Dementia No Family History Parkinson s Disease No Family History Aneurysm No Family History COPD No Family History Hyperlipidemia No Family History Social History Tobacco Use Smoking status: Former Packs/day: 0.70 Years: 20.00 Total pack years: 14.00 Types: Cigarettes Quit date: 2004 Years since quittin.6 Smokeless tobacco: Never Vaping Use Vaping Use: Never used Substance Use Topics Alcohol use: Yes Comment: 6 beers on Monday during football Drug use: No EXAM: BP 160/80 Pulse 78 Resp 16 Wt 71.2 kg (157 lb) LMP 07/27/2009 SpO2 97% BMI 26.53 kg/m PHYSICAL EXAM: General Appearance: Well appearing, alert, in no acute distress, well-hydrated, well nourished.. Skin: Skin color, texture, turgor normal, no suspicious rashes or lesions. Head: Normocephalic, no masses, lesions, tenderness or abnormalities. Eyes: Anicteric sclera. Extraocular movements are intact. . Neck: Supple, no adenopathy. + swelling in the supraclavicular region -- R>L. No discrete masses noted. Neurologic: Gait normal. ASSESSMENT/PLAN: 1. Localized swelling, mass and lump, neck - ICD9: 784.2, ICD10: R22.1 (primary diagnosis) Will get CT of neck. Patient is a previous smoker. Continue aleve. - CT NECK SOFT TISSUE W IVCON - IV CONTRAST (RADIOLOGY PROCEDURE) - CREATININE BLD 2. Allergy, initial encounter - ICD9: 995.3, ICD10: T78.40XA - LORATADINE-PSEUDOEPHEDRINE ER 10 MG-240 MG TABLET,EXTENDED [id number] Discussed treatment plan and patient voices understanding. Patient's questions answered appropriately. Medications and potential side effects were discussed and patient voices understanding. Return to the office as scheduled or as needed for worsening/no improvement. Miley Richmond APRN.TIGIST documented in this encounter [facility] 12-16-2022 Miscellaneous Notes Patient returned call and went over results, notes from Miley Richmond RAIL LOADER with understanding. Patient said other side of her neck is swollen now, scheduled appt with [facility] for 12/23/2022. Left message to return call to office. Jone Rudd LPN Can please let patient know that I received her ultrasound results. The only thing they were able to see is a small lymph node. No other masses were noted. If this area continues/worsens, please return so that we can further evaluate. Miley Richmond APRN.CNP documented in this encounter [facility] 12-14-2022 History of Present illness Narrative Radiology Service Progress Note PATIENT NAME: Natividad Conde DATE OF SERVICE: December 14, 2022 TIME: 8:11 AM PATIENT IDENTITY VERIFICATION COMPLETED USING TWO (2) IDENTIFIERS: Name and Date of confirmed by patient verbally. FALL SCREENING: Has the patient had 2 falls in the last year or 1 fall with injury or currently using an Ambulatory Assistive Device (Walker, Cane, Wheelchair, Crutches, etc.)? No PATIENT GENDER DATA: Female. status: : No status: NO. PATIENT RELEVANT IMPLANT DATA REVIEWED: Not Applicable RADIOLOGY DEPARTMENT: Ultrasound PERIPHERAL IV DATA: Not applicable SIGNED BY: Yesika Carrasquillo RDMS December 14, 2022 8:11 AM documented in this encounter [facility] 12-12-2022 Instructions Miley Richmond APRN.CNP - 12/12/2022 3:37 PM EDT Get the ultrasound of the neck. documented in this encounter [facility] 12-12-2022 History of Present illness Narrative This is a 62 year old female who presents today with: Patient presents with: Acute Visit: Lump on R shoulder area, near neck x 1week HISTORY OF PRESENT ILLNESS: Natividad L Elton is a 62 year old female. Patient presents with: Acute Visit: Lump on R shoulder area, near neck x 1week Pt presents today with complaint of lump on the right neck. Started about a week ago. Refers that it can change in size. Refers pressure. No soreness to touch. Refers that she has hardware in the spine. She has been having some pain in the right shoulder. No recent sickness. No fever/chills. Ex smoker -- quit over 20 years ago. PAST MEDICAL HISTORY: PAST MEDICAL HISTORY Diagnosis Date Arthritis in left hand Cervical disc disease History of smoking Multinodular goiter 04/14/2013 thyroiditis 04/2013 Osteopenia 05/15/2011 PAST SURGICAL HISTORY Procedure Laterality Date BIOPSY BREAST OPEN INCISIONAL 07/05/2012 left, Fibroadenoma BX BREAST PERC NEED W/GUID 05/31/2012 U/S needle core UOQ left breast, fibroadenoma and Phyllodes tumor CERV SPINE FUSN,ANTER,BELOW C2 1996 DELIVERY ONLY X 2 , low transverse LAPAROSCOPY SURG CHOLECYSTECTOMY 10/15/2018 Cholecystectomy, lap NEUROPLASTY &/TRANSPOS MEDIAN NRV CARPAL TUNNE Carpal tunnel decomp Right hand PAST SURGICAL HISTORY OF N/A 08/03/2021 Parathyroid removed TONSILLECTOMY PRIMARY/SECONDARY <AGE 13 Tonsillectomy ALLERGIES Levothyroxine MEDICATIONS Current Outpatient Medications Medication Sig omeprazole (PRILOSEC) 20 mg capsule Take 1 capsule by mouth daily before breakfast. 1/2 hr before meal. loratadine-pseudoephedrine ER (CLARITIN-D 24) 10-240 mg Tb24 Take 1 tablet by mouth once daily. yncnfho-pqlyvuioh-slnggqw D3 500 mg-5 mcg (200 unit) per tablet Take 1 tablet by mouth once daily. Cyanocobalamin (VITAMIN B-12) 2,000 mcg TbER Take 1 tablet by mouth once daily. (Patient taking differently: Take 1 tablet by mouth once daily. 2500 mcg ) No current facility-administered medications for this visit. FAMILY HISTORY Problem Relation Age of Onset Diabetes Mother Hypertension Mother DVT Mother Hypertension Father Alcohol/Drug Father alcohol No Known Problems Sister No Known Problems Brother No Known Problems Brother No Known Problems Brother Heart Maternal Grandmother hardening of the arteries Osteoporosis Maternal Grandmother shrunk with age Ischemic Heart Disease Maternal Grandfather 63 NM Hypertension Maternal Aunt Diabetes Maternal Aunt Coronary Artery Disease No Family History Thyroid No Family History Blood Disease No Family History Blood Clots No Family History Factor 5 Leiden No Family History Stroke No Family History Systemic Lupus Erythematosus No Family History Multiple Sclerosis No Family History Bipolar disorder No Family History Schizophrenia No Family History Alzheimer's Disease No Family History Dementia No Family History Parkinson s Disease No Family History Aneurysm No Family History COPD No Family History Hyperlipidemia No Family History Social History Tobacco Use Smoking status: Former Packs/day: 0.70 Years: 20.00 Total pack years: 14.00 Types: Cigarettes Quit date: 2004 Years since quittin.5 Smokeless tobacco: Never Vaping Use Vaping Use: Never used Substance Use Topics Alcohol use: Yes Comment: 6 beers on Monday during football Drug use: No EXAM: BP 168/80 Pulse 66 Resp 16 LMP 07/27/2009 SpO2 95% PHYSICAL EXAM: General Appearance: Well appearing, alert, in no acute distress, well-hydrated, well nourished.. Skin: Skin color, texture, turgor normal, no suspicious rashes or lesions. Head: Normocephalic, no masses, lesions, tenderness or abnormalities. Eyes: Anicteric sclera. Pupils are equally round and reactive to light. Extraocular movements are intact. . Neck: Supple, no adenopathy; thyroid symmetric, normal size, no bruits. Has soft prominent lump base of right neck/supraclavicular. More prominent when she raises her right arm. Lungs: Lungs clear to auscultation. No wheezing, rhonchi, rales.. Heart: RRR without murmur, gallop, or rubs. No ectopy. Neurologic: Gait normal. Reflexes normal and symmetric. Sensation grossly intact.. ASSESSMENT/PLAN: 1. Localized swelling, mass and lump, neck - ICD9: 784.2, ICD10: R22.1 ? Possible lipoma over the muscle. Will get ultrasound for further evaluation. Follow-up pending results. - US HEAD/NECK SOFT TISSUE OTHER Discussed treatment plan and patient voices understanding. Patient's questions answered appropriately. Medications and potential side effects were discussed and patient voices understanding. Return to the office as scheduled or as needed for worsening/no improvement. Miley Richmond APRN.FLAVORING OIL FILTERER documented in this encounter [facility] 12-12-2022 Miscellaneous Notes Noted. See as scheduled. Miley Richmond APRN.CNP Triage Protocol Recommended: See provider within 24 hours. No appts available with Dr. Hernandez's team today. Appt made with Miley Spaulding CNP for 3:20pm today. Reason for Disposition [1] Swelling is painful to touch AND [2] no fever Answer Assessment - Initial Assessment Questions Patient calling and states she has a bubble at her right neck/shoulder area. Began about 1 week ago and is getting bigger. Where shirt collar sits. Reports it is a little large than a 50 cent piece. 1. APPEARANCE of SWELLING: raised area, not red-maybe pink, pt reports she has a mild sunburn 2. SIZE: slightly larger than 50 cent piece 3. LOCATION:right neck/shoulder area 4. ONSET: about 1 week ago 5. PAIN: it's sore, denies severe pain 6. ITCH: no 7. CAUSE: Pt not sure 8. OTHER SYMPTOMS: -denies fever -no N/V/D -sometimes feel lightheaded over the last week-denies feeling lightheaded or feeling like passing out at this time -no tongue swelling -no new breathing issue -varying mild SOB -at work now -whole right shoulder does not feel right -eating and drinking well -pt not sure if area is fluid filled or not Protocols used: Skin Lump or Localized [id number] documented in this encounter [facility] 10-18-2022 Miscellaneous Notes The following approved medication requests have been transmitted electronically. Requested Prescriptions Pending Prescriptions Disp Refills omeprazole (PRILOSEC) 20 mg capsule 30 capsule 11 Sig: Take 1 capsule by mouth daily before breakfast. 1/2 hr before meal. Will Bryan APRN.CNP documented in this encounter [facility] 03-11-2022 History of Present illness Narrative Chief Complaint Patient presents with: F/U 3 Month HPI Natividad Conde is a 61 year old female who presents here today for 3 month follow up. No bowel, Gi, or urinary issues. No chest pains, dizziness, or SOB. GERD: Doing well Prilosec 20 mg daily. Thyroid: Follows with Endo for hyperparathyroidism, had lower left parathyroidectomy. Taking Calcium with Vitamin D, B 12 vitamins and Calcium daily. Allergies - Takes Claritin-D daily to every other year. HM - Declines Covid vaccines, Flu shot, Depression. IFOBT given today. Mamm ordered pt to schedule - she prefers to wait on this Past medical history, appointments, medications, allergies reviewed. 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 Cervical disc disease History of smoking Multinodular goiter 04/14/2013 thyroiditis 04/2013 Osteopenia 05/15/2011 Previous Surgical History PAST SURGICAL HISTORY Procedure Laterality Date BIOPSY BREAST OPEN INCISIONAL 07/05/12 left, Fibroadenoma BX BREAST PERC NEED W/GUID 05/31/12 U/S needle core UOQ left breast, fibroadenoma and Phyllodes tumor CERV SPINE FUSN,ANTER,BELOW C2 1996 DELIVERY ONLY X 2 , low transverse LAPAROSCOPY SURG CHOLECYSTECTOMY 10/15/2018 Cholecystectomy, lap NEUROPLASTY &/TRANSPOS MEDIAN NRV CARPAL TUNNE Carpal tunnel decomp Right hand TONSILLECTOMY PRIMARY/SECONDARY <AGE 13 Tonsillectomy Family History FAMILY HISTORY Problem Relation Age of Onset Diabetes Mother Hypertension Mother DVT Mother Hypertension Father Alcohol/Drug Father alcohol No Known Problems Sister No Known Problems Brother No Known Problems Brother No Known Problems Brother Heart Maternal Grandmother hardening of the arteries Osteoporosis Maternal Grandmother shrunk with age Ischemic Heart Disease Maternal Grandfather 63 NM Hypertension Maternal Aunt Diabetes Maternal Aunt Coronary Artery Disease No Family History Thyroid No Family History Blood Disease No Family History Blood Clots No Family History Factor 5 Leiden No Family History Stroke No Family History Systemic Lupus Erythematosus No Family History Multiple Sclerosis No Family History Bipolar disorder No Family History Schizophrenia No Family History Alzheimer's Disease No Family History Dementia No Family History Parkinson s Disease No Family History Aneurysm No Family History COPD No Family History Hyperlipidemia No Family History Patient Allergies ALLERGIES Allergen Reactions Levothyroxine Other: See Comments Bloating and Vuong Current Medications Current Outpatient Medications on File Prior to Visit Medication Sig loratadine-pseudoephedrine ER (CLARITIN-D 24) 10-240 mg Tb24 Take 1 tablet by mouth once daily. omeprazole (PRILOSEC) 20 mg capsule Take 1 capsule by mouth daily before breakfast. 1/2 hr before meal. wsjnewz-fzwwlpcaf-ecrpege D3 500 mg-5 mcg (200 unit) per tablet Take 1 tablet by mouth once daily. acetaminophen (TYLENOL) 500 mg tablet Take 1 tablet by mouth every 4 hours as needed for pain. Cyanocobalamin (VITAMIN B-12) 2,000 mcg TbER Take 1 tablet by mouth once daily. (Patient taking differently: Take 1 tablet by mouth once daily. 2500 mcg ) No current facility-administered medications on file prior to visit. Social History Social History Tobacco Use Smoking status: Former Packs/day: 0.70 Years: 20.00 Pack years: 14.00 Types: Cigarettes Quit date: 2004 Years since quittin.8 Smokeless tobacco: Never Vaping Use Vaping Use: Never used Substance Use Topics Alcohol use: Yes Comment: 6 beers on Monday during football Drug use: No EXAM: BP 138/86 Pulse 80 Resp 16 Wt 72.4 kg (159 lb 9.6 oz) LMP 07/27/2009 BMI 26.97 kg/m General Appearance: Well appearing, alert, in no acute distress, well-hydrated, well nourished.. Lungs: Lungs clear to auscultation. No wheezing, rhonchi, rales.. Heart: RRR without murmur, gallop, or rubs. No ectopy. Health Maintenance List COVID-19 VACCINE(1) Never done HIV SCREENING Never done PAP TESTING Never done HPV TESTING Never done SHINGRIX VACCINE(1 of 2) Never done MAMMOGRAM due on 05/24/2017 DEPRESSION ASSESSMENT Never done COLORECTAL CANCER SCREENING due on 11/02/2021 INFLUENZA(1) due on 01/13/2022 DIABETES SCREEN due on 09/13/2024 LIPID SCREEN due on 10/28/2025 DTAP,TDAP,TD(2 - Td or Tdap) due on 02/18/2026 HEPATITIS C SCREENING Completed Data reviewed Appointment on 03/08/2022 Component Date Value Calcium, Total 03/08/2022 9.6 PTH, Intact 03/08/2022 40 Normalized Calcium 03/08/2022 1.26 Calcium Ionized, Whole B* 03/08/2022 1.29 Vitamin D 25 Hydroxy 03/08/2022 22.3 (A) Creatinine 03/08/2022 0.60 Estimated Glomerular Omde* 03/08/2022 103 ASSESSMENT/PLAN: 1. Primary hyperparathyroidism (HCC) - ICD9: 252.01, ICD10: E21.0 (primary diagnosis) - VITAMIN D 25 HYDROXY - COMP METABOLIC PANEL - PTH INTACT BLD 2. Gastroesophageal reflux disease, unspecified whether esophagitis present - ICD9: 530.81, ICD10: K21.9 3. Screening for colon cancer - ICD9: V76.51, ICD10: Z12.11 - FECAL OCCULT BLOOD TEST 4. Vitamin D deficiency - ICD9: 268.9, ICD10: E55.9 Go back on once weekly vit D; she has medication at home - VITAMIN D 25 HYDROXY Follow up in 6 months Medical Decision Making: Problems: Moderate: 2+ stable chronic illnesses Data: Unique test result(s) reviewed: 3+ Unique test(s) ordered: 3+ Risk: Moderate: Drug management Medical Decision Making Level: 4 - Moderate Tia Hernandez MD documented in this encounter [facility] 11-30-2021 History of Present illness Narrative Chief Complaint Patient presents with: F/U 3 Month HPI Natividad Conde is a 61 year old female who presents here today for 3 month follow up. Has a lot of stress right now, working, caring for her disabled daughter and her grand daughter. Has 3 husky puppies at home. She states that her father is in [facility] right now due to heart attack. Looking forward to her company [employer] at [employer] this summer. She inherited the [place] house from her father, but the foundation shifted a lot recently and it is going to cost her $50,000 to repair. She is going to try to apply for some government grants since its a historical home. No bowel, Gi, or urinary issues. GERD: Sx doing well with Prilosec 20 mg daily. No chest pains, dizziness, or SOB. Follows with Endo for hyperparathyroidism. Had left lower parathyroidectomy. Taking Calcium daily. Taking Calcium with Vitamin D and B 12 vitamins daily. Allergies: Stable with Claritin D daily. Skin: itching at times to the skin on her throat, near her incision site. Cramps: leg cramping at night, wakes her up at night. She does work on her feet a lot. She does eat bananas and drinks a lot of water, she drank 4 bottles of water today. Does not do any stretches before bed. Used some roll on lidocaine on the legs and that helped some. She states it seems to be mostly in the right leg. She does not do any stretches before bed. Past medical history, appointments, medications, allergies reviewed. 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 Cervical disc disease History of smoking Multinodular goiter 04/14/2013 thyroiditis 04/2013 Osteopenia 05/15/2011 Previous Surgical History PAST SURGICAL HISTORY Procedure Laterality Date BIOPSY BREAST OPEN INCISIONAL 07/05/12 left, Fibroadenoma BX BREAST PERC NEED W/GUID 05/31/12 U/S needle core UOQ left breast, fibroadenoma and Phyllodes tumor CERV SPINE FUSN,ANTER,BELOW C2 1996 DELIVERY ONLY X 2 , low transverse LAPAROSCOPY SURG CHOLECYSTECTOMY 10/15/2018 Cholecystectomy, lap NEUROPLASTY &/TRANSPOS MEDIAN NRV CARPAL TUNNE Carpal tunnel decomp Right hand TONSILLECTOMY PRIMARY/SECONDARY <AGE 13 Tonsillectomy Family History FAMILY HISTORY Problem Relation Age of Onset Diabetes Mother Hypertension Mother DVT Mother Hypertension Father Alcohol/Drug Father alcohol No Known Problems Sister No Known Problems Brother No Known Problems Brother No Known Problems Brother Heart Maternal Grandmother hardening of the arteries Osteoporosis Maternal Grandmother shrunk with age Ischemic Heart Disease Maternal Grandfather 63 NM Hypertension Maternal Aunt Diabetes Maternal Aunt Coronary Artery Disease No Family History Thyroid No Family History Blood Disease No Family History Blood Clots No Family History Factor 5 Leiden No Family History Stroke No Family History Systemic Lupus Erythematosus No Family History Multiple Sclerosis No Family History Bipolar disorder No Family History Schizophrenia No Family History Alzheimer's Disease No Family History Dementia No Family History Parkinson s Disease No Family History Aneurysm No Family History COPD No Family History Hyperlipidemia No Family History Patient Allergies ALLERGIES Allergen Reactions Levothyroxine Other: See Comments Bloating and Vuong Current Medications Current Outpatient Medications on File Prior to Visit Medication Sig triamcinolone (KENALOG) 0.025 % cream Apply 1 application to affected area twice daily. loratadine-pseudoephedrine ER (CLARITIN-D 24) 10-240 mg Tb24 Take 1 tablet by mouth once daily. omeprazole (PRILOSEC) 20 mg capsule Take 1 capsule by mouth daily before breakfast. 1/2 hr before meal. dhtjcbc-usykbxgzo-kdvneza D3 500 mg-5 mcg (200 unit) per tablet Take 1 tablet by mouth once daily. acetaminophen (TYLENOL) 500 mg tablet Take 1 tablet by mouth every 4 hours as needed for pain. Cyanocobalamin (VITAMIN B-12) 2,000 mcg TbER Take 1 tablet by mouth once daily. (Patient taking differently: Take 1 tablet by mouth once daily. 2500 mcg ) No current facility-administered medications on file prior to visit. Social History Social History Tobacco Use Smoking status: Former Smoker Packs/day: 0.70 Years: 20.00 Pack years: 14.00 Types: Cigarettes Quit date: 2004 Years since quittin.5 Smokeless tobacco: Never Used Vaping Use Vaping Use: Never used Substance Use Topics Alcohol use: Yes Comment: 6 beers on Monday during football Drug use: No EXAM: BP 124/76 Pulse 82 Resp 16 Wt 70.7 kg (155 lb 12.8 oz) LMP 07/27/2009 BMI 26.33 kg/m General Appearance: Well appearing, alert, in no acute distress, well-hydrated, well nourished.. Skin: no rash to the neck. Lungs: Lungs clear to auscultation. No wheezing, rhonchi, rales.. Heart: RRR without murmur, gallop, or rubs. No ectopy. Extremities: right calf; tender on palpation, no swelling. Health Maintenance List COVID-19 VACCINE(1) Never done HIV SCREENING Never done PAP TESTING Never done HPV TESTING Never done SHINGRIX VACCINE(1 of 2) Never done MAMMOGRAM due on 05/24/2017 DEPRESSION SCREENING due on 10/28/2021 COLORECTAL CANCER SCREENING due on 11/02/2021 INFLUENZA(1) due on 01/13/2022 DIABETES SCREEN due on 09/13/2024 LIPID SCREEN due on 10/28/2025 DTAP,TDAP,TD(2 - Td or Tdap) due on 02/18/2026 HEPATITIS C SCREENING Completed Data reviewed None ASSESSMENT/PLAN: 1. Primary hyperparathyroidism (HCC) - ICD9: 252.01, ICD10: E21.0 (primary diagnosis) Continue current medications. Continue with Endo 2. Gastroesophageal reflux disease, unspecified whether esophagitis present - ICD9: 530.81, ICD10: K21.9 - Controlled Continue current medications. 3. Allergy, initial encounter - ICD9: 995.3, ICD10: T78.40XA Controlled Continue current medications. 4. Leg cramping - ICD9: 729.82, ICD10: R25.2 Recommend stretching leg at night, massage, or heat Stay hydrated Can continue with the Lidocaine cream OTC Follow up in 6 months. I agree with the Chief Complaint, ROS, and Past Histories independently gathered by the clinical operations support analyst and the remaining scribed note accurately describes my personal service to the patient. Medical Decision Making: Problems: Low: Acute, uncomplicated illness or injury and Stable chronic illness Risk: Moderate: Drug management Medical Decision Making Level: 3 - Low Tia Hernandez MD The documentation for this note was completed by Lorie Koehler Ma acting as scribe for Tia Hernandez MD. November 30, 2021 4:10 PM. Lorie Koehler Ma documented in this encounter [facility] 10-03-2021 History of Present illness Narrative Images from the original note were not included. Subjective HPI Natividad Conde is a 61 year old female who presents with a rash on her left hand. She believes it may be poison malinda. It has been red and itchy and blistering. She has used calamine lotion and alcohol on the rash. Review of Systems Constitutional: Negative for chills and fever. Musculoskeletal: Negative for myalgias. Skin: Positive for itching and rash. 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 Cervical disc disease History of smoking Multinodular goiter 04/14/2013 thyroiditis 04/2013 Osteopenia 05/15/2011 PAST SURGICAL HISTORY Procedure Laterality Date BIOPSY BREAST OPEN INCISIONAL 07/05/12 left, Fibroadenoma BX BREAST PERC NEED W/GUID 05/31/12 U/S needle core UOQ left breast, fibroadenoma and Phyllodes tumor CERV SPINE FUSN,ANTER,BELOW C2 1996 DELIVERY ONLY X 2 , low transverse LAPAROSCOPY SURG CHOLECYSTECTOMY 10/15/2018 Cholecystectomy, lap NEUROPLASTY &/TRANSPOS MEDIAN NRV CARPAL TUNNE Carpal tunnel decomp Right hand TONSILLECTOMY PRIMARY/SECONDARY <AGE 13 Tonsillectomy ALLERGIES Levothyroxine MEDICATIONS loratadine-pseudoephedrine ER (CLARITIN-D 24) 10-240 mg Tb24 Take 1 tablet by mouth once daily. omeprazole (PRILOSEC) 20 mg capsule Take 1 capsule by mouth daily before breakfast. 1/2 hr before meal. lsupbyu-tfneleiyq-ruewqso D3 500 mg-5 mcg (200 unit) per tablet Take 1 tablet by mouth once daily. acetaminophen (TYLENOL) 500 mg tablet Take 1 tablet by mouth every 4 hours as needed for pain. Cyanocobalamin (VITAMIN B-12) 2,000 mcg TbER Take 1 tablet by mouth once daily. triamcinolone (KENALOG) 0.025 % cream Apply 1 application to affected area twice daily. FAMILY HISTORY Problem Relation Age of Onset Diabetes Mother Hypertension Mother DVT Mother Hypertension Father Alcohol/Drug Father alcohol No Known Problems Sister No Known Problems Brother No Known Problems Brother No Known Problems Brother Heart Maternal Grandmother hardening of the arteries Osteoporosis Maternal Grandmother shrunk with age Ischemic Heart Disease Maternal Grandfather 63 NM Hypertension Maternal Aunt Diabetes Maternal Aunt Coronary Artery Disease No Family History Thyroid No Family History Blood Disease No Family History Blood Clots No Family History Factor 5 Leiden No Family History Stroke No Family History Systemic Lupus Erythematosus No Family History Multiple Sclerosis No Family History Bipolar disorder No Family History Schizophrenia No Family History Alzheimer's Disease No Family History Dementia No Family History Parkinson s Disease No Family History Aneurysm No Family History COPD No Family History Hyperlipidemia No Family History Social History Tobacco Use Smoking status: Former Smoker Packs/day: 0.70 Years: 20.00 Pack years: 14.00 Types: Cigarettes Quit date: 2004 Years since quittin.3 Smokeless tobacco: Never Used Vaping Use Vaping Use: Never used Substance Use Topics Alcohol use: Yes Comment: 6 beers on Monday during football Drug use: No Objective Physical Exam Vitals and nursing note reviewed. Constitutional: Appearance: Normal appearance. Skin: General: Skin is warm and dry. Capillary Refill: Capillary refill takes less than 2 seconds. Findings: Erythema and rash present. Neurological: Mental Status: She is alert. ASSESSMENT/PLAN: 1. Dermatitis due to plants, including poison malinda, sumac, and oak - ICD9: 692.6, ICD10: L25.5 - Topical steriod tx with Rx for steriod cream/ointment- see orders - discussed skin care of rash - follow up if symptoms persist or worsen. - TRIAMCINOLONE ACETONIDE 0.025 % TOPICAL CREAM - cover with a band aid during work hours otherwise leave open to air. Emy Nixon APRN.CNP documented in this encounter [facility] 10-03-2021 Instructions Emy Nixon APRN.CNP - 10/03/2021 10:53 AM EDT ASSESSMENT/PLAN: 1. Dermatitis due to plants, including poison malinda, sumac, and oak - ICD9: 692.6, ICD10: L25.5 - Topical steriod tx with Rx for steriod cream/ointment- see orders - discussed skin care of rash - follow up if symptoms persist or worsen. - TRIAMCINOLONE ACETONIDE 0.025 % TOPICAL CREAM - cover with a band aid during work hours otherwise leave open to air. Emy Nixon APRN.CNP [facility] PATIENT INFO POISON MALINDA INTRODUCTION When the skin comes in direct contact with an irritating or allergy-causing substance, contact dermatitis can develop. Exposure to poison malinda, poison oak, and poison sumac cause more cases of allergic contact dermatitis than all other plant families combined. People of all ethnicities and skin types are at risk for developing poison malinda dermatitis. The severity of the reaction tends to decrease with age, especially in people who have had mild reactions in the past. People in occupations such as firefighting, forestry, and farming are at a higher risk of poison malinda dermatitis because of repeated exposure to toxic plants. POISON MALINDA CAUSES Poison malinda, poison oak, and poison sumac plants all contain a compound called urushiol, which is a light, colorless oil that is found on the fruit, leaves, stem, root, and sap of the plant. When urushiol is exposed to air, it turns brown and the plant leaves develop small black spots. There are several ways that you can be exposed to urushiol: By touching the sap or rubbing against the leaves of the toxic plant By touching something that has urushiol on it, such as animal fur or garden tools By breathing in smoke when toxic plants are burned Ginkgo fruit and the skin of mangoes also contain urushiol and can produce symptoms similar to poison malinda dermatitis. IDENTIFYING POISON MALINDA Leaves of three, let them be is a phrase often used to identify plants that cause poison malinda dermatitis. Generally, poison malinda and poison oak have three leaves with flowering branches on a single stem. Poison sumac has five, seven, or more leaves that angle upward toward the top of the stem. Some types of poison malinda produce a green or off-white fruit in lachelle, and in some cases, black dots form on the plants' leaves. It is not always possible to identify the plant by the leaves alone since the appearance can vary depending upon the season, growth cycle, region, and climate. Poison malinda, oak, and sumac plants grow in many areas across the [facility] and throughout the world. East of the [facility], poison malinda commonly grows as a climbing vine. In the [place] area and west, poison malinda tends to grow low to the ground as a shrub. Poison oak most often grows west of the [facility], and poison sumac inhabits boggy areas in the southeastern part of the [facility]. The plants are not usually found in areas at high elevations or in desert climates. POISON MALINDA SIGNS AND SYMPTOMS After contact with urushiol, approximately 50 percent of people develop signs and symptoms of poison malinda dermatitis. The symptoms and severity differ from person to person. The most common signs and symptoms of poison malinda dermatitis are: Intense itching Skin swelling Skin redness These symptoms usually develop within four hours to four days after exposure to the urushiol. After the initial symptoms, you will develop fluid-filled blisters in a line or streak-like pattern. The symptoms are worst within 1 to 14 days after touching the plant, but can develop up to 21 days later if you have never been exposed to urushiol before. The blisters can occur at different times in different people; blisters can develop on the arms several days after blisters on the hands developed. This does not mean that the reaction is spreading from one area of the body to the other. The fluid that leaks from blisters does not cause symptoms. Poison malinda dermatitis is not contagious and cannot be passed from person to person. However, urushiol can be carried under fingernails and on clothes; if another person comes in contact with the urushiol, they can develop poison malinda dermatitis. POISON MALINDA DIAGNOSIS Poison malinda is usually diagnosed based upon how your skin looks. Further testing is not usually necessary. POISON MALINDA TREATMENT Poison malinda dermatitis usually resolves within one to three weeks without treatment. Treatments that may help relieve the itching, soreness, and discomfort caused by poison malinda dermatitis include: Skin treatments For some people, adding oatmeal to a bath, applying cool wet compresses, and applying calamine lotion may help to relieve itching. Once the blisters begin weeping fluid, astringents containing aluminum acetate (Atif's solution) and [place] may help to relieve the rash. Antihistamines Antihistamines may help to relieve itching caused by poison malinda dermatitis. Some antihistamines make you sleepy while others do not. Antihistamines that make you sleepy (eg, diphenhydramine [Benadryl ]) may be helpful if you have trouble sleeping due to itching. Other formulas (eg, loratadine [Claritin ], cetirizine [Zyrtec ]) may be preferable for daytime. Steroid creams Steroid creams may be helpful if they are used during the first few days after symptoms develop. Low potency steroid creams, such as 1 percent hydrocortisone (available in the [place] without prescription) are not usually helpful. A stronger prescription formula may be helpful. Steroids If you develop severe symptoms or the rash covers a large area (especially on the face or genitals), you may need steroid pills or injections (eg, prednisone) to help relieve itching and swelling. Pills are usually given for 14 to 21 days, with the dosage slowly decreased over time. Antibiotics Skin infections are a potential complication of poison malinda, especially if you scratch your skin. If you develop a skin infection because of poison malinda dermatitis, you may need antibiotics to treat the infection. Other treatments An herbal therapy called jewelweed extract has been used to treat poison malinda dermatitis, although it has not been proven effective. You should not use antihistamine creams or lotions, anesthetic creams containing benzocaine, or antibiotic creams containing neomycin or bacitracin to the skin. These creams or ointments could make the rash worse. POISON MALINDA PREVENTION The best way to prevent poison malinda dermatitis is to identify and avoid the plants that cause it. These plants can irritate the skin year round, even during the winter months, and can still cause a reaction years after the plant dies. Wear protective clothing, including long sleeves and pants when working in areas where toxic plants may be found. Keep in mind that the resin and oils from the toxic plants can be carried on clothing, pets, and under fingernails. Wear heavy-duty vinyl gloves when doing yard work or gardening. The oils from toxic plants can seep through latex or rubber gloves. After coming in contact with poison malinda, remove any contaminated clothing and gently wash (do not scrub or rub) you skin and under the fingernails with mild soap and water as soon as possible. Washing within two hours after exposure can reduce the likelihood and severity of symptoms; washing the skin after you have symptoms will not help. Creams and ointments that create a barrier between the skin and the urushiol oil may be somewhat effective for people who are frequently exposed to poison malinda. Bentoquatam (Malinda Block ) is one type of barrier cream that may prevent poison malinda dermatitis. It must be reapplied every four hours and it leaves a abbie residue on the skin. Avoid burning poisonous vegetation, which can disperse the plant particles in the smoke, irritate the skin, and cause poison malinda dermatitis. documented in this encounter [facility] 09-16-2021 Miscellaneous Notes Patient notified of results, verbalizes understanding of instructions. Smitha Yoder LPN Can you please call the patient and let her know that I reviewed her lab results. Labs were relatively normal glucose was just slightly elevated but all electrolytes were within normal limits. I see no causes for her current symptoms. I would recommend that she stay well-hydrated and may use an electrolyte replacement as discussed during office visit when at work. I saw that labs from endocrinology are back as well. Vitamin D is low. I recommend taking a supplement to help improve this. If she does not hear back from endocrinology within the week please let me know and I can send in a prescription for the vitamin D. Please let me know if she has any additional questions. Thank you. Corina Jordan APRN.TIGIST documented in this encounter [facility] 09-15-2021 Miscellaneous Notes Patient calling for provider's advise on recent lab results. Informed patient that she would be updated once provider advises. Thank you. documented in this encounter [facility] 09-15-2021 Miscellaneous Notes Patient returned call and appt made. Anushka Romo RN TC to pt. LM to call office, ask for triage nurse to make a [address] HERNANDEZ. Smitha Yoder LPN documented in this encounter [facility] 09-13-2021 Instructions Corina Jordan APRN.TIGIST - 09/13/2021 3:12 PM EDT 1.) Get labs completed. 2.) Schedule follow up appointment with Endocrinology for end of February. 3.) Stay well hydrated, may try some pedialyte or bodyarmour for muscle cramps. 4.) Take all medication as prescribed. 5.) Follow up in 3 months or sooner as needed. documented in this encounter [facility] 09-13-2021 History of Present illness Narrative Chief Complaint Patient presents with: Recheck This Team Access Model encounter involved medical decision making outside of a scheduled office visit. Patient was offered a virtual/telemedicine appointment in lieu of an office visit due to recommendations to reduce patient exposure to COVID-19. telephone was used for evaluation of this patient. Patient agrees to the visit: Yes Patient Location: [facility] Natividad Conde is a 61 year old female who is contacted today for a phone visit This is an established patient of Dr. Tia Hernandez MD Reports: Here in the office for follow up. GERD: Taking omeprazole 20 mg daily. Symptoms well controlled. Hyperparathyroidism: Seeing Endocrinology. Had left lower parathyroidectomy. Had postop visit early August. Instructed to take calcium once daily, lab work due around August 19 and then repeated in 6 months. Labs have not been completed but are due at this time. Muscle Cramps: Has noticed leg cramps this week at night. Works at [employer] and on feet whole shift. Cramps have been very painful. Allergies: Taking Claritin D for allergy symptoms which is effective, needs a refill. 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 Cervical disc disease History of smoking Multinodular goiter 04/14/2013 thyroiditis 04/2013 Osteopenia 05/15/2011 Previous Surgical History PAST SURGICAL HISTORY Procedure Laterality Date BIOPSY BREAST OPEN INCISIONAL 07/05/12 left, Fibroadenoma BX BREAST PERC NEED W/GUID 05/31/12 U/S needle core UOQ left breast, fibroadenoma and Phyllodes tumor CERV SPINE FUSN,ANTER,BELOW C2 1996 DELIVERY ONLY X 2 , low transverse LAPAROSCOPY SURG CHOLECYSTECTOMY 10/15/2018 Cholecystectomy, lap NEUROPLASTY &/TRANSPOS MEDIAN NRV CARPAL TUNNE Carpal tunnel decomp Right hand TONSILLECTOMY PRIMARY/SECONDARY <AGE 13 Tonsillectomy Family History FAMILY HISTORY Problem Relation Age of Onset Diabetes Mother Hypertension Mother DVT Mother Hypertension Father Alcohol/Drug Father alcohol No Known Problems Sister No Known Problems Brother No Known Problems Brother No Known Problems Brother Heart Maternal Grandmother hardening of the arteries Osteoporosis Maternal Grandmother shrunk with age Ischemic Heart Disease Maternal Grandfather 63 NM Hypertension Maternal Aunt Diabetes Maternal Aunt Coronary Artery Disease No Family History Thyroid No Family History Blood Disease No Family History Blood Clots No Family History Factor 5 Leiden No Family History Stroke No Family History Systemic Lupus Erythematosus No Family History Multiple Sclerosis No Family History Bipolar disorder No Family History Schizophrenia No Family History Alzheimer's Disease No Family History Dementia No Family History Parkinson s Disease No Family History Aneurysm No Family History COPD No Family History Hyperlipidemia No Family History Patient Allergies ALLERGIES Allergen Reactions Levothyroxine Other: See Comments Bloating and Vuong Current Medications Current Outpatient Medications on File Prior to Visit Medication Sig acetaminophen (TYLENOL) 500 mg tablet Take 1 tablet by mouth every 4 hours as needed for pain. dkisnnz-zcvcvrxtm-rlmenfn D3 500 mg-5 mcg (200 unit) per tablet Take 1 tablet by mouth three times daily. loratadine-pseudoephedrine ER (CLARITIN-D 24) 10-240 mg Tb24 Take 1 tablet by mouth once daily. omeprazole (PRILOSEC) 20 mg capsule Take 1 capsule by mouth daily before breakfast. 1/2 hr before meal. Cyanocobalamin (VITAMIN B-12) 2,000 mcg TbER Take 1 tablet by mouth once daily. (Patient taking differently: Take 1 tablet by mouth once daily. 2500 mcg ) LORATADINE ORAL Take 10 mg by mouth once daily. No current facility-administered medications on file prior to visit. Social History Social History Tobacco Use Smoking status: Former Smoker Packs/day: 0.70 Years: 20.00 Pack years: 14.00 Types: Cigarettes Quit date: 2004 Years since quittin.3 Smokeless tobacco: Never Used Vaping Use Vaping Use: Never used Substance Use Topics Alcohol use: Yes Comment: 6 beers on Monday during football Drug use: No Review of Symptoms GENERAL: No malaise or fatigue. No fevers. HEENT: Negative for headaches No eye discharge or redness No earaches No sore throat Nose POS/NEG for congestion and nasal discharge NECK: Negative for pain or swelling. No lumps RESPIRATORY: No wheezing, SOB, Difficulty breathing. No cough CARDIOVASCULAR: Negative for chest pain GI: No nausea, vomiting, or diarrhea MUSCULOSKELETAL: + Muscle Cramps SKIN: Negative for rash or itching Neuro: No lightheadedness or dizziness EXAM: [facility] 07/27/2009 Limited exam as visit was completed over the phone platform. Virtual visit completed using video, limited exam completed. Patient sounds or appears ill: No Patient is not able to speak in complete sentences: N/A Patient has labored breathing: No. Patient is audibly coughing: No Psych: Attitude - cooperative, easily engaged in conversation Affect - Euthymic, normal mood Mental status: Alert. Speech is clear and fluent with good repetition, comprehension Health Maintenance List COVID-19 VACCINE(1) Never done PAP TESTING Never done HPV TESTING Never done SHINGRIX VACCINE(1 of 2) Never done MAMMOGRAM due on 05/24/2017 HIV SCREENING due on 10/28/2021 DEPRESSION SCREENING due on 10/28/2021 COLORECTAL CANCER SCREENING due on 11/02/2021 INFLUENZA(Season Ended) due on 01/13/2022 DIABETES SCREEN due on 07/21/2024 LIPID SCREEN due on 10/28/2025 DTAP,TDAP,TD(2 - Td or Tdap) due on 02/18/2026 HEPATITIS C SCREENING Completed MENINGOCOCCAL CONJUGATE Aged Out Data reviewed Last 5 Encounter BP Readings: Date: BP: 08/03/2021 103/85 07/21/2021 140/70 04/05/2021 123/67 02/16/2021 153/81 10/28/2020 122/70 BMI Readings from Last 5 Encounters: 08/03/21 : 28.20 kg/m 07/21/21 : 27.38 kg/m 02/16/21 : 27.65 kg/m 10/28/20 : 28.95 kg/m 06/19/19 : 29.35 kg/m Last 5 Encounter Wt Readings: Date: Wt: 07/21/2021 73.5 kg (162 lb) 04/05/2021 75.7 kg (166 lb 14.2 oz) 02/16/2021 71.7 kg (158 lb) 10/28/2020 74.1 kg (163 lb 6.4 oz) 06/19/2019 78.7 kg (173 lb 9.6 oz) Medication and allergy list reviewed, reconciled and updated 09/13/2021 ASSESSMENT/PLAN: 1. Primary hyperparathyroidism (HCC) - ICD9: 252.01, ICD10: E21.0 (primary diagnosis) - Get labs completed from Endocrinology. - Schedule follow up at the end of February. - Continue to take Calcium daily. - CALCIUM CARBONATE 500 MG-VITAMIN D3 5 MCG (200 UNIT) TABLET 2. Muscle cramps - ICD9: 729.82, ICD10: R25.2 - Get additional labs completed. - Recommend staying well hydrated, may try small amount of Pedialyte or bodyarmour. - COMP METABOLIC PANEL - MAGNESIUM BLD 3. Allergy, initial encounter - ICD9: 995.3, ICD10: T78.40XA - Refill provided - LORATADINE-PSEUDOEPHEDRINE ER 10 MG-240 MG TABLET,EXTENDED [id number] 4. Gastroesophageal reflux disease without esophagitis - ICD9: 530.81, ICD10: K21.9 - Refill provided. - OMEPRAZOLE 20 MG CAPSULE,DELAYED RELEASE Follow up in 3 months or sooner as needed. Discussed treatment plan and patient voices understanding. Patient's questions answered appropriately. Medications and potential side effects were discussed and patient voices understanding. Corina Jordan APRN.TIGIST Total appointment time on phone with patient = 21-30 minutes documented in this encounter [facility] 08-19-2021 History of Present illness Narrative documented in this encounter [facility] 08-03-2021 Note HNO ID: [id number] Author: ZEINAB Adams Service: Nursing Author Type: Student Type: Anesthesia Procedure Notes Filed: 08/03/2021 10:10 AM Note Text: ANESTHESIOLOGY PROCEDURE NOTE Airway General Information Procedure Start Time/Medication Administration: 08/03/2021 9:53 AM Patient location during procedure: OR Timeout Performed Pre-procedure: timeout performed Consent Obtained: Yes Patient identity confirmed: arm band and patient Staffing SRNA: ZEINAB Adams Performed by: ZEINAB Indications and Patient Condition Preoxygenated: yes Patient position: sniffing Indications for airway management: anesthesia anesthesia circuit Method: asleep Airway Accessory: oral airway Final Airway Details Final airway type: endotracheal airway Final Endotracheal Airway: ETT Cuffed: yes Successful intubation technique: video laryngoscopy Devices used: Solomon Endotracheal tube insertion site: oral Blade size: #4 Measured from: teeth Measurement (cm): 22 Placement verified by: capnometry Cormack-Lehane Classification: grade I - full view of glottis Number of attempts at approach: 1 Ventilation between attempts: BVM Airway not difficult SIGNATURE: ZEINAB Adams PATIENT NAME: Natividad Conde DATE: August 03, 2021 TIME: 10:07 AM CSN: [id number] [facility] 10-03-2018 History of Past i llness Narrative Problem Noted Date Resolved Date Class 1 obesity due to exces s calories without serious comorbidity with body mass index (BMI) of 30.0 to 30.9 in adult 10/03/2018 07/21/2021 Last Assessment & Plan: Assessment: BMI-30 Osteopenia 02/16/2021 documented as of this encounter (statuses as of 09/13/2021) [facility] History of Past illness Narrative* Problem Noted Date Resolved Date Class 1 obesity due to exces s calories without serious comorbidity with body mass index (BMI) of 30.0 to 30.9 in adult 10/03/2018 07/21/2021 Last Assessment & Plan: Assessment: BMI-30 Osteopenia 02/16/2021 documented as of this encounter (statuses as of 09/15/2021) [facility] History of Past illness Narrative* Problem Noted Date Resolved Date Class 1 obesity due to exces s calories without serious comorbidity with body mass index (BMI) of 30.0 to 30.9 in adult 10/03/2018 07/21/2021 Last Assessment & Plan: Assessment: BMI-30 Osteopenia 02/16/2021 documented as of this encounter (statuses as of 09/16/2021) [facility] History of Past illness Narrative* Problem Noted Date Resolved Date Class 1 obesity due to exces s calories without serious comorbidity with body mass index (BMI) of 30.0 to 30.9 in adult 10/03/2018 07/21/2021 Last Assessment & Plan: Assessment: BMI-30 Osteopenia 02/16/2021 documented as of this encounter (statuses as of 09/29/2021) [facility] History of Past illness Narrative* Problem Noted Date Resolved Date Class 1 obesity due to exces s calories without serious comorbidity with body mass index (BMI) of 30.0 to 30.9 in adult 10/03/2018 07/21/2021 Last Assessment & Plan: Assessment: BMI-30 Osteopenia 02/16/2021 documented as of this encounter (statuses as of 10/03/2021) [facility] History of Past illness Narrative* Problem Noted Date Resolved Date Class 1 obesity due to exces s calories without serious comorbidity with body mass index (BMI) of 30.0 to 30.9 in adult 10/03/2018 07/21/2021 Last Assessment & Plan: Assessment: BMI-30 Osteopenia 02/16/2021 documented as of this encounter (statuses as of 11/12/2021) [facility] History of Past illness Narrative* Problem Noted Date Resolved Date Class 1 obesity due to exces s calories without serious comorbidity with body mass index (BMI) of 30.0 to 30.9 in adult 10/03/2018 07/21/2021 Last Assessment & Plan: Assessment: BMI-30 Osteopenia 02/16/2021 documented as of this encounter (statuses as of 11/15/2021) [facility] History of Past illness Narrative* Problem Noted Date Resolved Date Class 1 obesity due to exces s calories without serious comorbidity with body mass index (BMI) of 30.0 to 30.9 in adult 10/03/2018 07/21/2021 Last Assessment & Plan: Assessment: BMI-30 Osteopenia 02/16/2021 documented as of this encounter (statuses as of 11/30/2021) [facility] History of Past illness Narrative* Problem Noted Date Resolved Date Class 1 obesity due to exces s calories without serious comorbidity with body mass index (BMI) of 30.0 to 30.9 in adult 10/03/2018 07/21/2021 Last Assessment & Plan: Assessment: BMI-30 Osteopenia 02/16/2021 documented as of this encounter (statuses as of 03/11/2022) [facility] History of Past illness Narrative* Problem Noted Date Resolved Date Class 1 obesity due to exces s calories without serious comorbidity with body mass index (BMI) of 30.0 to 30.9 in adult 10/03/2018 07/21/2021 Last Assessment & Plan: Assessment: BMI-30 Osteopenia 02/16/2021 documented as of this encounter (statuses as of 10/17/2022) [facility] History of Past illness Narrative* Problem Noted Date Resolved Date Class 1 obesity due to exces s calories without serious comorbidity with body mass index (BMI) of 30.0 to 30.9 in adult 10/03/2018 07/21/2021 Last Assessment & Plan: Assessment: BMI-30 Osteopenia 02/16/2021 documented as of this encounter (statuses as of 10/18/2022) [facility] History of Past illness Narrative* Problem Noted Date Diagnosed Date Resolved Date Class 1 obesity due to exces s calories without serious comorbidity with body mass index (BMI) of 30.0 to 30.9 in adult 10/03/201801/2022 Last Assessment & Plan: Assessment: BMI-30 Osteopenia 02/16/2021 documented as of this encounter (statuses as of 12/12/2022) [facility] History of Past illness Narrative* Problem Noted Date Diagnosed Date Resolved Date Class 1 obesity due to exces s calories without serious comorbidity with body mass index (BMI) of 30.0 to 30.9 in adult 10/03/201801/2022 Last Assessment & Plan: Assessment: BMI-30 Osteopenia 02/16/2021 documented as of this encounter (statuses as of 12/13/2022) [facility] History of Past illness Narrative* Problem Noted Date Diagnosed Date Resolved Date Class 1 obesity due to exces s calories without serious comorbidity with body mass index (BMI) of 30.0 to 30.9 in adult 10/03/201801/2022 Last Assessment & Plan: Assessment: BMI-30 Osteopenia 02/16/2021 documented as of this encounter (statuses as of 12/17/2022) [facility] History of Past illness Narrative* Problem Noted Date Diagnosed Date Resolved Date Class 1 obesity due to exces s calories without serious comorbidity with body mass index (BMI) of 30.0 to 30.9 in adult 10/03/201801/2022 Last Assessment & Plan: Assessment: BMI-30 Osteopenia 02/16/2021 documented as of this encounter (statuses as of 12/23/2022) [facility] History of Past illness Narrative* Problem Noted Date Diagnosed Date Resolved Date Class 1 obesity due to exces s calories without serious comorbidity with body mass index (BMI) of 30.0 to 30.9 in adult 10/03/201801/2022 Last Assessment & Plan: Assessment: BMI-30 Osteopenia 02/16/2021 documented as of this encounter (statuses as of 12/28/2022) [facility] History of Past illness Narrative* Problem Noted Date Diagnosed Date Resolved Date Class 1 obesity due to exces s calories without serious comorbidity with body mass index (BMI) of 30.0 to 30.9 in adult 10/03/201801/2022 Last Assessment & Plan: Assessment: BMI-30 Osteopenia 02/16/2021 documented as of this encounter (statuses as of 01/06/2023) [facility] History of Past illness Narrative* Problem Noted Date Diagnosed Date Resolved Date Class 1 obesity due to exces s calories without serious comorbidity with body mass index (BMI) of 30.0 to 30.9 in adult 10/03/201801/2022 Last Assessment & Plan: Assessment: BMI-30 Osteopenia 02/16/2021 documented as of this encounter (statuses as of 01/10/2023) [facility] History of Past illness Narrative* Problem Noted Date Diagnosed Date Resolved Date Class 1 obesity due to exces s calories without serious comorbidity with body mass index (BMI) of 30.0 to 30.9 in adult 10/03/201801/2022 Last Assessment & Plan: Assessment: BMI-30 Osteopenia 02/16/2021 documented as of this encounter (statuses as of 01/11/2023) [facility] History of Past illness Narrative* Problem Noted Date Diagnosed Date Resolved Date Class 1 obesity due to exces s calories without serious comorbidity with body mass index (BMI) of 30.0 to 30.9 in adult 10/03/201801/2022 Last Assessment & Plan: Assessment: BMI-30 Osteopenia 02/16/2021 documented as of this encounter (statuses as of 01/24/2023) [facility] History of Past illness Narrative* Problem Noted Date Diagnosed Date Resolved Date Class 1 obesity due to exces s calories without serious comorbidity with body mass index (BMI) of 30.0 to 30.9 in adult 10/03/201801/2022 Last Assessment & Plan: Assessment: BMI-30 Osteopenia 02/16/2021 documented as of this encounter (statuses as of 03/19/2023) [facility] History of Past illness Narrative* Problem Noted Date Diagnosed Date Resolved Date Class 1 obesity due to exces s calories without serious comorbidity with body mass index (BMI) of 30.0 to 30.9 in adult 10/03/201801/2022 Last Assessment & Plan: Assessment: BMI-30 Osteopenia 02/16/2021 documented as of this encounter (statuses as of 03/19/2023) [facility] History of Past illness Narrative* Problem Noted Date Diagnosed Date Resolved Date Class 1 obesity due to exces s calories without serious comorbidity with body mass index (BMI) of 30.0 to 30.9 in adult 10/03/201801/2022 Last Assessment & Plan: Assessment: BMI-30 Osteopenia 02/16/2021 documented as of this encounter (statuses as of 06/16/2023) [facility] Diagnosis Primary hyperparathyroidism (HCC)- Primary Primary hyperparathyroidism Muscle cramps Cramp of limb Allergy, initial encounter Gastroesophageal reflux disease without esophagitis Esophageal reflux [facility] Diagnosis Hyperparathyroidism (HCC)- Primary Hyperparathyroidism, unspecified [facility] Diagnosis Dermatitis due to plants, including poison malinda, sumac, and oak- Primary Contact dermatitis and other eczema due to plants (except food) [facility] Diagnosis Encounter for screening mammogram for breast cancer [facility] Diagnosis Primary hyperparathyroidism (HCC)- Primary Primary hyperparathyroidism Gastroesophageal reflux disease, unspecified whether esophagitis present Allergy, initial encounter Leg cramping Cramp of limb [facility] Diagnosis Primary hyperparathyroidism (HCC)- Primary Primary hyperparathyroidism Gastroesophageal reflux disease, unspecified whether esophagitis present Screening for colon cancer Special screening for malignant neoplasms, colon Vitamin D deficiency Unspecified vitamin D deficiency [facility] Diagnosis Encounter for screening mammogram for breast cancer [facility] Diagnosis Gastroesophageal reflux disease without esophagitis Esophageal reflux [facility] Diagnosis Localized swelling, mass and lump, neck- Primary Swelling, mass, or lump in head and neck [facility] Diagnosis Localized swelling, mass and lump, neck- Primary Swelling, mass, or lump in head and neck Allergy, initial encounter [facility] Diagnosis Localized swelling, mass and lump, neck- Primary Swelling, mass, or lump in head and neck Hx of parathyroidectomy (HCC) Personal history of surgery to other organs Weight gain Abnormal weight gain Fatigue, unspecified type Multinodular goiter Nontoxic multinodular goiter Musculoskeletal neck pain Cervicalgia [facility]* Diagnosis Hypothyroidism, acquired- Primary Unspecified hypothyroidism [facility]* Diagnosis Localized swelling, mass and lump, neck Swelling, mass, or lump in head and neck [facility]* Diagnosis Hx of parathyroidectomy (HCC) Personal history of surgery to other organs Multinodular goiter Nontoxic multinodular goiter [facility]* Diagnosis Gastroesophageal reflux disease without esophagitis Esophageal reflux documented in this encounter [facility] note* Diagnosis Pre-operative examination- Primary Preoperative examination, unspecified Gallbladder polyp Cholesterolosis of gallbladder Multinodular goiter Nontoxic multinodular goiter Cervical disc disease Other and unspecified disc disorder of cervical region History of smoking Personal history of tobacco use, presenting hazards to health Class 1 obesity due to excess calories without serious comorbidity with body mass index (BMI) of 30.0 to 30.9 in adult Pre-operative examination- Primary Preoperative examination, unspecified Primary hyperparathyroidism (HCC) Primary hyperparathyroidism Gastroesophageal reflux disease, unspecified whether esophagitis present Cervical disc disease Other and unspecified disc disorder of cervical region Localized osteoporosis without current pathological fracture History of smoking Personal history of tobacco use, presenting hazards to health Allergy, initial encounter [facility]* Diagnosis Pre-operative examination- Primary Preoperative examination, unspecified Gallbladder polyp Cholesterolosis of gallbladder Multinodular goiter Nontoxic multinodular goiter Cervical disc disease Other and unspecified disc disorder of cervical region History of smoking Personal history of tobacco use, presenting hazards to health Class 1 obesity due to excess calories without serious comorbidity with body mass index (BMI) of 30.0 to 30.9 in adult Pre-operative examination- Primary Preoperative examination, unspecified Primary hyperparathyroidism (HCC) Primary hyperparathyroidism Gastroesophageal reflux disease, unspecified whether esophagitis present Cervical disc disease Other and unspecified disc disorder of cervical region Localized osteoporosis without current pathological fracture History of smoking Personal history of tobacco use, presenting hazards to health Pain of right thigh Pain in limb Pain of right hip Chronic midline low back pain without sciatica [facility]* Diagnosis Pre-operative examination- Primary Preoperative examination, unspecified Gallbladder polyp Cholesterolosis of gallbladder Multinodular goiter Nontoxic multinodular goiter Cervical disc disease Other and unspecified disc disorder of cervical region History of smoking Personal history of tobacco use, presenting hazards to health Class 1 obesity due to excess calories without serious comorbidity with body mass index (BMI) of 30.0 to 30.9 in adult Pre-operative examination- Primary Preoperative examination, unspecified Primary hyperparathyroidism (HCC) Primary hyperparathyroidism Gastroesophageal reflux disease, unspecified whether esophagitis present Cervical disc disease Other and unspecified disc disorder of cervical region Localized osteoporosis without current pathological fracture History of smoking Personal history of tobacco use, presenting hazards to health Hypertension, unspecified type- Primary Palpitations Primary hyperparathyroidism (HCC) Primary hyperparathyroidism Hypothyroidism, unspecified type Screening for depression Encounter for screening examination for other mental health and behavioral disorders documented in this encounter [facility] note* Diagnosis Pre-operative examination- Primary Preoperative examination, unspecified Gallbladder polyp Cholesterolosis of gallbladder Multinodular goiter Nontoxic multinodular goiter Cervical disc disease Other and unspecified disc disorder of cervical region History of smoking Personal history of tobacco use, presenting hazards to health Class 1 obesity due to excess calories without serious comorbidity with body mass index (BMI) of 30.0 to 30.9 in adult Pre-operative examination- Primary Preoperative examination, unspecified Primary hyperparathyroidism (HCC) Primary hyperparathyroidism Gastroesophageal reflux disease, unspecified whether esophagitis present Cervical disc disease Other and unspecified disc disorder of cervical region Localized osteoporosis without current pathological fracture History of smoking Personal history of tobacco use, presenting hazards to health Hypothyroidism, acquired Unspecified hypothyroidism documented in this encounter [facility] note* Diagnosis Pre-operative examination- Primary Preoperative examination, unspecified Gallbladder polyp Cholesterolosis of gallbladder Multinodular goiter Nontoxic multinodular goiter Cervical disc disease Other and unspecified disc disorder of cervical region History of smoking Personal history of tobacco use, presenting hazards to health Class 1 obesity due to excess calories without serious comorbidity with body mass index (BMI) of 30.0 to 30.9 in adult Pre-operative examination- Primary Preoperative examination, unspecified Primary hyperparathyroidism (HCC) Primary hyperparathyroidism Gastroesophageal reflux disease, unspecified whether esophagitis present Cervical disc disease Other and unspecified disc disorder of cervical region Localized osteoporosis without current pathological fracture History of smoking Personal history of tobacco use, presenting hazards to health Wellness examination- Primary Elevated BP without diagnosis of hypertension Right wrist pain Pain in joint, forearm Hypothyroidism, acquired Unspecified hypothyroidism Right wrist pain Pain in joint, forearm [facility]* Diagnosis Pre-operative examination- Primary Preoperative examination, unspecified Gallbladder polyp Cholesterolosis of gallbladder Multinodular goiter Nontoxic multinodular goiter Cervical disc disease Other and unspecified disc disorder of cervical region History of smoking Personal history of tobacco use, presenting hazards to health Class 1 obesity due to excess calories without serious comorbidity with body mass index (BMI) of 30.0 to 30.9 in adult Pre-operative examination- Primary Preoperative examination, unspecified Primary hyperparathyroidism (HCC) Primary hyperparathyroidism Gastroesophageal reflux disease, unspecified whether esophagitis present Cervical disc disease Other and unspecified disc disorder of cervical region Localized osteoporosis without current pathological fracture History of smoking Personal history of tobacco use, presenting hazards to health Right wrist pain Pain in joint, forearm [facility]* Diagnosis Pre-operative examination- Primary Preoperative examination, unspecified Gallbladder polyp Cholesterolosis of gallbladder Multinodular goiter Nontoxic multinodular goiter Cervical disc disease Other and unspecified disc disorder of cervical region History of smoking Personal history of tobacco use, presenting hazards to health Class 1 obesity due to excess calories without serious comorbidity with body mass index (BMI) of 30.0 to 30.9 in adult Pre-operative examination- Primary Preoperative examination, unspecified Primary hyperparathyroidism (HCC) Primary hyperparathyroidism Gastroesophageal reflux disease, unspecified whether esophagitis present Cervical disc disease Other and unspecified disc disorder of cervical region Localized osteoporosis without current pathological fracture History of smoking Personal history of tobacco use, presenting hazards to health 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 Osteonecrosis (HCC) Aseptic necrosis of bone, site unspecified [facility] Diagnosis Pre-operative examination- Primary Preoperative examination, unspecified Gallbladder polyp Cholesterolosis of gallbladder Multinodular goiter Nontoxic multinodular goiter Cervical disc disease Other and unspecified disc disorder of cervical region History of smoking Personal history of tobacco use, presenting hazards to health Class 1 obesity due to excess calories without serious comorbidity with body mass index (BMI) of 30.0 to 30.9 in adult Pre-operative examination- Primary Preoperative examination, unspecified Primary hyperparathyroidism (HCC) Primary hyperparathyroidism Gastroesophageal reflux disease, unspecified whether esophagitis present Cervical disc disease Other and unspecified disc disorder of cervical region Localized osteoporosis without current pathological fracture History of smoking Personal history of tobacco use, presenting hazards to health 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) Aseptic necrosis of bone, site unspecified documented in this encounter [facility] note* Diagnosis Pre-operative examination- Primary Preoperative examination, unspecified Gallbladder polyp Cholesterolosis of gallbladder Multinodular goiter Nontoxic multinodular goiter Cervical disc disease Other and unspecified disc disorder of cervical region History of smoking Personal history of tobacco use, presenting hazards to health Class 1 obesity due to excess calories without serious comorbidity with body mass index (BMI) of 30.0 to 30.9 in adult Pre-operative examination- Primary Preoperative examination, unspecified Primary hyperparathyroidism (HCC) Primary hyperparathyroidism Gastroesophageal reflux disease, unspecified whether esophagitis present Cervical disc disease Other and unspecified disc disorder of cervical region Localized osteoporosis without current pathological fracture History of smoking Personal history of tobacco use, presenting hazards to health Encounter for screening mammogram for breast cancer documented in this encounter [facility] note* Diagnosis Pre-operative examination- Primary Preoperative examination, unspecified Gallbladder polyp Cholesterolosis of gallbladder Multinodular goiter Nontoxic multinodular goiter Cervical disc disease Other and unspecified disc disorder of cervical region History of smoking Personal history of tobacco use, presenting hazards to health Class 1 obesity due to excess calories without serious comorbidity with body mass index (BMI) of 30.0 to 30.9 in adult Pre-operative examination- Primary Preoperative examination, unspecified Primary hyperparathyroidism (HCC) Primary hyperparathyroidism Gastroesophageal reflux disease, unspecified whether esophagitis present Cervical disc disease Other and unspecified disc disorder of cervical region Localized osteoporosis without current pathological fracture History of smoking Personal history of tobacco use, presenting hazards to health Primary hypertension- Primary Unspecified essential hypertension Hypothyroidism, acquired Unspecified hypothyroidism Right wrist pain Pain in joint, forearm Musculoskeletal neck pain Cervicalgia documented in this encounter [facility] note* Diagnosis Pre-operative examination- Primary Preoperative examination, unspecified Gallbladder polyp Cholesterolosis of gallbladder Multinodular goiter Nontoxic multinodular goiter Cervical disc disease Other and unspecified disc disorder of cervical region History of smoking Personal history of tobacco use, presenting hazards to health Class 1 obesity due to excess calories without serious comorbidity with body mass index (BMI) of 30.0 to 30.9 in adult Pre-operative examination- Primary Preoperative examination, unspecified Primary hyperparathyroidism (HCC) Primary hyperparathyroidism Gastroesophageal reflux disease, unspecified whether esophagitis present Cervical disc disease Other and unspecified disc disorder of cervical region Localized osteoporosis without current pathological fracture History of smoking Personal history of tobacco use, presenting hazards to health 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, 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, right [facility] Diagnosis Pre-operative examination- Primary Preoperative examination, unspecified Gallbladder polyp Cholesterolosis of gallbladder Multinodular goiter Nontoxic multinodular goiter Cervical disc disease Other and unspecified disc disorder of cervical region History of smoking Personal history of tobacco use, presenting hazards to health Class 1 obesity due to excess calories without serious comorbidity with body mass index (BMI) of 30.0 to 30.9 in adult Pre-operative examination- Primary Preoperative examination, unspecified Primary hyperparathyroidism (HCC) Primary hyperparathyroidism Gastroesophageal reflux disease, unspecified whether esophagitis present Cervical disc disease Other and unspecified disc disorder of cervical region Localized osteoporosis without current pathological fracture History of smoking Personal history of tobacco use, presenting hazards to health Gastroesophageal reflux disease without esophagitis Esophageal reflux documented in this encounter [facility] for referral (narrative)* Diagnostic Procedure Only (Routine) - Pending Review Specialty Diagnoses / Procedures Referred By Santiago fonseca Referred To Contact [facility] Diagnoses Encounter for screening mammogram for breast cancer Procedures REYES SCREENING SCREENING MAMMOGRAPHY BI 2-VIEW BREAST INC Tia Lagos MD [address] [place] [address] [place] [id number] Referral ID Status Reason Start Date Expiration Date Visits Requested Visits Authorized [id number] Pending Review Auto-Generat ed Referral 11/10/2021 12/10/[address] [facility] for referral (narrative)* Diagnostic Procedure Only (Routine) - Pending Review Specialty Diagnoses / Procedures Referred By Santiago fonseca Referred To Contact [facility] Diagnoses Encounter for screening mammogram for breast cancer Procedures REYES SCREENING SCREENING MAMMOGRAPHY [place] 2[place] [address] [place] [address] [facility] [address] [place] [address] Referral ID Status Reason Start Date Expiration Date Visits Requested Visits Authorized [id number] Pending Review Auto-Generat ed Referral 10/12/2022 11/11/[address] [facility] for referral (narrative)* Diagnostic Procedure Only (Routine) - Authorized Specialty Diagnoses / Procedures Referred By Contac t Referred To Contact [facility] Diagnoses Localized swelling, mass and lump, neck Procedures US HEAD/NECK SOFT TISSUE OTHER US SOFT TISSUE HEAD & NECK REAL TIME IMGE Miley Richardson APRN.CNP [address] [place] [address] [facility] Referral ID Status Reason Start Date Expiration Date Visits Requested Visits Authorized [id number] Authorized Auto-Generat ed Referral 12/12/2022 01/11/[address] [facility] for referral (narrative)* Diagnostic Procedure Only (Routine) - Authorized Specialty Diagnoses / Procedures Referred By Contac t Referred To Contact [facility] Diagnoses Hx of parathyroidectomy (HCC) Multinodular goiter Procedures US THYROID/PARATHYROID US SOFT TISSUE HEAD & NECK REAL TIME Tia Gross MD [address] [place] [address] [place] [address] Referral ID Status Reason Start Date Expiration Date Visits Requested Visits Authorized [id number] Authorized Auto-Generat ed Referral 01/09/2023 02/08/[address] [facility] for referral (narrative)* Diagnostic Procedure Only (Routine) - Closed Specialty Diagnoses / Procedures Referred By Contac t Referred To Contact [facility] Diagnoses Localized swelling, mass and lump, neck Procedures US HEAD/NECK SOFT TISSUE OTHER US SOFT TISSUE HEAD & NECK REAL TIME IMGE Miley Richardson APRN.CNP [address] [place] [address] [place] [address] Referral ID Status Reason Start Date Expiration Date V isits Requested Visits Authorized [id number] Closed Auto-Generate d Referral 12/12/2022 01/11/[address] [facility] for referral (narrative)* Diagnostic Procedure Only (Routine) - Closed Specialty Diagnoses / Procedures Referred By Contac t Referred To Contact US IMAG[facility] Diagnoses Hx of parathyroidectomy (HCC) Multinodular goiter Procedures US THYROID/PARATHYROID US SOFT TISSUE HEAD & NECK REAL TIME IMGE Tia Patel MD [address] [place] [address] [place] [address] Referral ID Status Reason Start Date Expiration Date V isits Requested Visits Authorized [id number] Closed Auto-Generate d Referral 01/09/2023 02/08/[address] [facility] for referral (narrative)* Diagnostic Procedure Only (Routine) - Closed Specialty Diagnoses / Procedures Referred By Contac t Referred To Contact XR IMAGING Diagnoses Pain of right thigh Pain of right hip Chronic midline low back pain without sciatica Procedures XR HIP GENERAL 3V PELV/AP/LAT RIGHT RADEX HIP UNILATERAL WITH PELVIS 2-3 VIEWS Tia Hernandez MD [address] [place] [address] [place] [address] Referral ID Status Reason Start Date Expiration Date V isits Requested Visits Authorized [id number] Closed Auto-Generate d Referral 06/09/2023 07/08/[address] [facility] for visit Narrative* Diagnostic Procedure Only (Routine) - Closed Specialty Diagnoses / Procedures Referred By Contac t Referred To Contact XR IMAGING Diagnoses Pain of right thigh Pain of right hip Chronic midline low back pain without sciatica Procedures XR HIP GENERAL 3V PELV/AP/LAT RIGHT RADEX HIP UNILATERAL WITH PELVIS 2-3 VIEWS Tia Hernandez MD [address] [place] [address] [place] [address] Referral ID Status Reason Start Date Expiration Date V isits Requested Visits Authorized [id number] Closed Auto-Generate d Referral 06/09/2023 07/08/[address] [facility] for visit Narrative* Diagnostic Procedure Only (Urgent) - Closed Specialty Diagnoses / Procedures Referred By Contac t Referred To Contact XR IMAGING Diagnoses Right wrist pain Procedures XR WRIST GENERAL 3V PA/LAT/OBL RIGHT RADEX WRIST COMPLETE MINIMUM 3 VIEWS Tia Hernandez MD [address] [place] [address] Phone: tel: fax: [place] [address] Referral ID Status Reason Start Date Expiration Date V isits Requested Visits Authorized [id number] Closed Auto-Generate d Referral 07/11/2024 08/10/[address] 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) Procedures MRI WRIST WO IVCON RIGHT MRI ANY JT UPPER EXTREMITY W/O CONTRAST MATRL Tia Hernandez MD [address] [place] [address] Phone: tel: fax: [place] [address] Referral ID Status Reason Start Date Expiration Date V isits Requested Visits Authorized [id number] Closed Auto-Generate d Referral 05/15/2024 05/14/2025 1 1 [facility] Summary Purpose Family History No Family History Records FoundNo Family History Records FoundNo Family History Records FoundNo Family History Records Found Advance Directives Documents on File Type Date Recorded 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 Advance Directive(s) Advance Directive(s) 07/02/2021 2:16 PM Advance Directive(s) 10/15/2018 11:17 AM Advance Directive(s) 09/27/2018 3:17 PM Documents on File Type Date 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 Advance Directive(s) Advance Directive(s) 07/02/2021 2:16 PM Advance Directive(s) 10/15/2018 11:17 AM Advance Directive(s) 09/27/2018 3:17 PM Reason for Referral Specialty Diagnoses / Procedures Referred By Contac t Referred To Contact CT IMAGING Diagnoses Localized swelling, mass and lump, neck Procedures CT NECK SOFT TISSUE W IVCON CT SOFT TISSUE NECK W/CONTRAST MATERIAL Miley [place] APRN.FLAVORING OIL FILTERER [address] [place] [address] Ct Imaging Referral ID Status Reason Start Date Expiration Date Visits Requested Visits Authorized [id number] Authorized Auto-Generat ed Referral 12/23/2022 05/14/2023 1 1 Specialty Diagnoses / Procedures Referred By Contac t Referred To Contact CT IMAGING Diagnoses Localized swelling, mass and lump, neck Procedures CT NECK SOFT TISSUE W IVCON CT SOFT TISSUE NECK W/CONTRAST MATERIAL Miley [place] APRN.FLAVORING OIL FILTERER [address] [place] [address] Ct Imaging [place] [address] Referral ID Status Reason Start Date Expiration Date V isits Requested Visits Authorized [id number] Closed Auto-Generate d Referral 12/23/2022 05/14/2023 1 1 Additional Source Comments INFORMATION SOURCE (unrecogn ized section and content) DATE CREATED AUTHOR 10/21/2018 [facility] DATE CREATED AUTHOR AUTHOR'S ORGANIZ ATION 08/12/2021 [facility] DATE CREATED AUTHOR AUTHOR'S ORGANIZ ATION 07/11/2024 [facility] DATE CREATED AUTHOR AUTHOR'S ORGANIZ ATION 10/27/2024 [facility] Source Comments (unrecognize d section and content) In the event this informatio n is protected by the Federal Confidentiality of Alcohol and Drug Abuse Patient Records regulations: The Federal rules restrict any use of the information to criminally investigate or prosecute any alcohol or drug abuse patient.[facility] the event this information is protected by the Federal Confidentiality of Alcohol and Drug Abuse Patient Records regulations: The Federal rules restrict any use of the information to criminally investigate or prosecute any alcohol or drug abuse patient.[facility] HospitalIn the event this information is protected by the Federal Confidentiality of Alcohol and Drug Abuse Patient Records regulations: The Federal rules restrict any use of the information to criminally investigate or prosecute any alcohol or drug abuse patient.[facility] HospitalIn the event this information is protected by the Federal Confidentiality of Alcohol and Drug Abuse Patient Records regulations: The Federal rules restrict any use of the information to criminally investigate or prosecute any alcohol or drug abuse patient.[facility] HospitalIn the event this information is protected by the Federal Confidentiality of Alcohol and Drug Abuse Patient Records regulations: The Federal rules restrict any use of the information to criminally investigate or prosecute any alcohol or drug abuse patient.[facility] HospitalIn the event this information is protected by the Federal Confidentiality of Alcohol and Drug Abuse Patient Records regulations: The Federal rules restrict any use of the information to criminally investigate or prosecute any alcohol or drug abuse patient.[facility] HospitalIn the event this information is protected by the Federal Confidentiality of Alcohol and Drug Abuse Patient Records regulations: The Federal rules restrict any use of the information to criminally investigate or prosecute any alcohol or drug abuse patient.[facility] HospitalIn the event this information is protected by the Federal Confidentiality of Alcohol and Drug Abuse Patient Records regulations: The Federal rules restrict any use of the information to criminally investigate or prosecute any alcohol or drug abuse patient.[facility] HospitalIn the event this information is protected by the Federal Confidentiality of Alcohol and Drug Abuse Patient Records regulations: The Federal rules restrict any use of the information to criminally investigate or prosecute any alcohol or drug abuse patient.[facility] HospitalIn the event this information is protected by the Federal Confidentiality of Alcohol and Drug Abuse Patient Records regulations: The Federal rules restrict any use of the information to criminally investigate or prosecute any alcohol or drug abuse patient.[facility] HospitalIn the event this information is protected by the Federal Confidentiality of Alcohol and Drug Abuse Patient Records regulations: The Federal rules restrict any use of the information to criminally investigate or prosecute any alcohol or drug abuse patient.[facility] HospitalIn the event this information is protected by the Federal Confidentiality of Alcohol and Drug Abuse Patient Records regulations: The Federal rules restrict any use of the information to criminally investigate or prosecute any alcohol or drug abuse patient.[facility] HospitalIn the event this information is protected by the Federal Confidentiality of Alcohol and Drug Abuse Patient Records regulations: The Federal rules restrict any use of the information to criminally investigate or prosecute any alcohol or drug abuse patient.[facility] HospitalIn the event this information is protected by the Federal Confidentiality of Alcohol and Drug Abuse Patient Records regulations: The Federal rules restrict any use of the information to criminally investigate or prosecute any alcohol or drug abuse patient.[facility] HospitalIn the event this information is protected by the Federal Confidentiality of Alcohol and Drug Abuse Patient Records regulations: The Federal rules restrict any use of the information to criminally investigate or prosecute any alcohol or drug abuse patient.[facility] HospitalIn the event this information is protected by the Federal Confidentiality of Alcohol and Drug Abuse Patient Records regulations: The Federal rules restrict any use of the information to criminally investigate or prosecute any alcohol or drug abuse patient.[facility] HospitalIn the event this information is protected by the Federal Confidentiality of Alcohol and Drug Abuse Patient Records regulations: The Federal rules restrict any use of the information to criminally investigate or prosecute any alcohol or drug abuse patient.[facility] HospitalIn the event this information is protected by the Federal Confidentiality of Alcohol and Drug Abuse Patient Records regulations: The Federal rules restrict any use of the information to criminally investigate or prosecute any alcohol or drug abuse patient.[facility] HospitalIn the event this information is protected by the Federal Confidentiality of Alcohol and Drug Abuse Patient Records regulations: The Federal rules restrict any use of the information to criminally investigate or prosecute any alcohol or drug abuse patient.[facility] HospitalIn the event this information is protected by the Federal Confidentiality of Alcohol and Drug Abuse Patient Records regulations: The Federal rules restrict any use of the information to criminally investigate or prosecute any alcohol or drug abuse patient.[facility] HospitalIn the event this information is protected by the Federal Confidentiality of Alcohol and Drug Abuse Patient Records regulations: The Federal rules restrict any use of the information to criminally investigate or prosecute any alcohol or drug abuse patient.[facility] HospitalIn the event this information is protected by the Federal Confidentiality of Alcohol and Drug Abuse Patient Records regulations: The Federal rules restrict any use of the information to criminally investigate or prosecute any alcohol or drug abuse patient.[facility] HospitalIn the event this information is protected by the Federal Confidentiality of Alcohol and Drug Abuse Patient Records regulations: The Federal rules restrict any use of the information to criminally investigate or prosecute any alcohol or drug abuse patient.[facility] HospitalIn the event this information is protected by the Federal Confidentiality of Alcohol and Drug Abuse Patient Records regulations: The Federal rules restrict any use of the information to criminally investigate or prosecute any alcohol or drug abuse patient.[facility] HospitalIn the event this information is protected by the Federal Confidentiality of Alcohol and Drug Abuse Patient Records regulations: The Federal rules restrict any use of the information to criminally investigate or prosecute any alcohol or drug abuse patient.[facility] HospitalIn the event this information is protected by the Federal Confidentiality of Alcohol and Drug Abuse Patient Records regulations: The Federal rules restrict any use of the information to criminally investigate or prosecute any alcohol or drug abuse patient.[facility] HospitalIn the event this information is protected by the Federal Confidentiality of Alcohol and Drug Abuse Patient Records regulations: The Federal rules restrict any use of the information to criminally investigate or prosecute any alcohol or drug abuse patient.[facility] HospitalIn the event this information is protected by the Federal Confidentiality of Alcohol and Drug Abuse Patient Records regulations: The Federal rules restrict any use of the information to criminally investigate or prosecute any alcohol or drug abuse patient.[facility] HospitalIn the event this information is protected by the Federal Confidentiality of Alcohol and Drug Abuse Patient Records regulations: The Federal rules restrict any use of the information to criminally investigate or prosecute any alcohol or drug abuse patient.[facility] HospitalIn the event this information is protected by the Federal Confidentiality of Alcohol and Drug Abuse Patient Records regulations: The Federal rules restrict any use of the information to criminally investigate or prosecute any alcohol or drug abuse patient.[facility] HospitalIn the event this information is protected by the Federal Confidentiality of Alcohol and Drug Abuse Patient Records regulations: The Federal rules restrict any use of the information to criminally investigate or prosecute any alcohol or drug abuse patient.[facility] HospitalIn the event this information is protected by the Federal Confidentiality of Alcohol and Drug Abuse Patient Records regulations: The Federal rules restrict any use of the information to criminally investigate or prosecute any alcohol or drug abuse patient.[facility] HospitalIn the event this information is protected by the Federal Confidentiality of Alcohol and Drug Abuse Patient Records regulations: The Federal rules restrict any use of the information to criminally investigate or prosecute any alcohol or drug abuse patient.[facility] HospitalIn the event this information is protected by the Federal Confidentiality of Alcohol and Drug Abuse Patient Records regulations: The Federal rules restrict any use of the information to criminally investigate or prosecute any alcohol or drug abuse patient.[facility] HospitalIn the event this information is protected by the Federal Confidentiality of Alcohol and Drug Abuse Patient Records regulations: The Federal rules restrict any use of the information to criminally investigate or prosecute any alcohol or drug abuse patient.[facility] HospitalIn the event this information is protected by the Federal Confidentiality of Alcohol and Drug Abuse Patient Records regulations: The Federal rules restrict any use of the information to criminally investigate or prosecute any alcohol or drug abuse patient.[facility] HospitalIn the event this information is protected by the Federal Confidentiality of Alcohol and Drug Abuse Patient Records regulations: The Federal rules restrict any use of the information to criminally investigate or prosecute any alcohol or drug abuse patient.[facility] HospitalIn the event this information is protected by the Federal Confidentiality of Alcohol and Drug Abuse Patient Records regulations: The Federal rules restrict any use of the information to criminally investigate or prosecute any alcohol or drug abuse patient.[facility] HospitalIn the event this information is protected by the Federal Confidentiality of Alcohol and Drug Abuse Patient Records regulations: The Federal rules restrict any use of the information to criminally investigate or prosecute any alcohol or drug abuse patient.[facility] HospitalIn the event this information is protected by the Federal Confidentiality of Alcohol and Drug Abuse Patient Records regulations: The Federal rules restrict any use of the information to criminally investigate or prosecute any alcohol or drug abuse patient.[facility] HospitalIn the event this information is protected by the Federal Confidentiality of Alcohol and Drug Abuse Patient Records regulations: The Federal rules restrict any use of the information to criminally investigate or prosecute any alcohol or drug abuse patient.[facility] HospitalIn the event this information is protected by the Federal Confidentiality of Alcohol and Drug Abuse Patient Records regulations: The Federal rules restrict any use of the information to criminally investigate or prosecute any alcohol or drug abuse patient.[facility] Reason for Visit (unrecogniz ed section and content) Reason Comments Recheck Reason Comments Return Provider Call Reason Comments Results Reason Comments Post Op Reason Comments Derm Problem blisters on left santos d x 2 days Reason Comments Patient Question: Lab results Reason Comments F/U 3 Month Reason Onset Date Comments Refill Request 10/18/2022 Reason Comments raised area right shoulder/neck area Reason Comments Acute Visit Lump on R shoulder a garret, near neck x 1week Reason Comments neck swelling Both sides of the ne ck, right side worse Reason Comments Follow Up Reason Comments ultrasound results Reason Comments Radiology US Specialty Diagnoses / Procedures Referred By Enmanuelac t Referred To Contact US IMAGING Diagnoses Localized swelling, mass and lump, neck Procedures US HEAD/NECK SOFT TISSUE OTHER US SOFT TISSUE HEAD & NECK REAL TIME IMGE DOCM Miley [place] APRN.FLAVORING OIL FILTERER [address] [place] [address] [place] [address] Referral ID Status Reason Start Date Expiration Date V isits Requested Visits Authorized [id number] Closed Auto-Generate d Referral 12/12/2022 01/11/2024 1 1 Specialty Diagnoses / Procedures Referred By Contac t Referred To Contact US IMAGING Diagnoses Hx of parathyroidectomy (HCC) Multinodular goiter Procedures US THYROID/PARATHYROID US SOFT TISSUE HEAD & NECK REAL TIME IMGE DOCTia Hamilton MD [address] [place] [address] [place] [address] Referral ID Status Reason Start Date Expiration Date V isits Requested Visits Authorized [id number] Closed Auto-Generate d Referral 01/09/2023 02/08/2024 [address] Specialty Diagnoses / Procedures Referred By Contac t Referred To Contact CT IMAGING Diagnoses Localized swelling, mass and lump, neck Procedures CT NECK SOFT TISSUE W IVCON CT SOFT TISSUE NECK W/CONTRAST MATERIAL Miley [place] APRN.FLAVORING OIL FILTERER [address] [place] [address] [place] [address] Referral ID Status Reason Start Date Expiration Date V isits Requested Visits Authorized [id number] Closed Auto-Generate d Referral 12/23/2022 05/14/2023 1 1 Reason Onset Date Comments Refill Request 11/15/2023 Reason Comments Forms FMLA Reason Comments Hypertension ER F/U Reason Comments Elevated BP Reason Comments Refill Request Reason Onset Date Comments Refill Request 07/08/2024 Reason Comments Physical Reason Onset Date Comments Results 07/12/2024 Reason Comments F/U 1 month Reason Comments New Pain Specialty Diagnoses / Procedures Referred By Contac t Referred To Contact Orthopedics Diagnoses 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 Procedures CONSULT TO ORTHOPAEDICS OFFICE/OUTPATIENT NEW HIGH MDM 60 MINUTES Tia Hernandez MD [address] [place] [address] Phone: tel: fax: Referral ID Status Reason Start Date Expiration Date V isits Requested Visits Authorized [id number] Closed PCP Requested Referral 07/12/2024 07/12/2025 1 1 Reason Comments FMLA Paperwork Reason Onset Date Comments Refill Request 01/15/2025 Care Teams (unrecognized sec tion and content) Stunner Relationship Specialty Start Date End Date Tia Hernandez MD [address] [place] [address] PCP - General Family Practice 07/18/15 Stunner Relationship Specialty Start Date End Date Tia Hernandez MD [address] [place] [address] PCP - General Family Practice 07/18/15 Stunner Relationship Specialty Start Date End Date Tia Hernandez MD [address] [place] [address] PCP - General Family Practice 07/18/15 Stunner Relationship Specialty Start Date End Date Tia Hernandez MD [address] [place] [address] PCP - General Family Practice 07/18/15 Stunner Relationship Specialty Start Date End Date Tia Hernandez MD [address] [place] [address] PCP - General Family Practice 07/18/15 Stunner Relationship Specialty Start Date End Date Tia Hernandez MD [address] [place] [address] PCP - General Family Practice 07/18/15 Stunner Relationship Specialty Start Date End Date Tia Hernandez MD [address] [place] [address] PCP - General Family Practice 07/18/15 Stunner Relationship Specialty Start Date End Date Tia Hernandez MD [address] [place] [address] PCP - General Family Medicine 07/18/15 Stunner Relationship Specialty Start Date End Date Tia Hernandez MD [address] [place] [address] PCP - General Family Medicine 07/18/15 Stunner Relationship Specialty Start Date End Date Tia Hernandez MD [address] [place] [address] PCP - General Family Medicine 07/18/15 Stunner Relationship Specialty Start Date End Date Tia Hernandez MD [address] [place] [address] PCP - General Family Medicine 07/18/15 Stunner Relationship Specialty Start Date End Date Tia Hernandez MD [address] [place] [address] PCP - General Family Medicine 07/18/15 Stunner Relationship Specialty Start Date End Date Tia Hernandez MD [address] [place] [address] PCP - General Family Medicine 07/18/15 Stunner Relationship Specialty Start Date End Date Tia Hernandez MD [address] [place] [address] PCP - General Family Medicine 07/18/15 Stunner Relationship Specialty Start Date End Date Tia Hernandez MD [address] [place] [address] PCP - General Family Medicine 07/18/15 Stunner Relationship Specialty Start Date End Date Tia Hernandez MD [address] [facility] [place] [address] PCP - General Family Medicine 07/18/15 Stunner Relationship Specialty Start Date End Date Tia Hernandez MD [address] [facility] [place] [address] PCP - General Family Medicine 07/18/15 Stunner Relationship Specialty Start Date End Date Tia Hernandez MD [address] [facility] [place] [address] PCP - General Family Medicine 07/18/15 Stunner Relationship Specialty Start Date End Date Tia Hernandez MD [address] [facility] [place] [address] PCP - General Family Medicine 07/18/15 Stunner Relationship Specialty Start Date End Date Tia Hernandez MD [address] [facility] [place] [address] PCP - General Family Medicine 07/18/15 Stunner Relationship Specialty Start Date End Date Tia Hernandez MD [address] [facility] [place] [address] PCP - General Family Medicine 07/18/15 Stunner Relationship Specialty Start Date End Date Tia Hernandez MD [address] [facility] [place] [address] PCP - General Family Medicine 07/18/15 Stunner Relationship Specialty Start Date End Date Tia Hernandez MD [address] [facility] [place] [address] PCP - General Family Medicine 07/18/15 Stunner Relationship Specialty Start Date End Date Tia Hernandez MD [address] [facility] [place] [address] PCP - General Family Medicine 07/18/15 Stunner Relationship Specialty Start Date End Date Tia Hernandez MD [address] [facility] [place] [address] PCP - General Family Medicine 07/18/15 Stunner Relationship Specialty Start Date End Date Tia Hernandez MD [address] [place] [address] PCP - General Family Medicine 07/18/15 Corina Jordan APRN.FLAVORING OIL FILTERER [address] [place] [address] Metal Cleaner Family Medicine 04/21/24 Will Bryan BUSINESS SEGMENT MANAGER.FLAVORING OIL FILTERER [address] [facility] [place] [address] Metal Cleaner Family Medicine 04/30/24 Stunner Relationship Specialty Start Date End Date Tia Hernandez MD [address] [place] [address] PCP - General Family Medicine 07/18/15 Corina Jordan BUSINESS SEGMENT MANAGER.FLAVORING OIL FILTERER [address] [facility] [place] [address] Metal Cleaner Family Medicine 04/21/24 Will Bryan APRN.FLAVORING OIL FILTERER [address] [facility] [place] [address] Metal Cleaner Family Medicine 04/30/24 Stunner Relationship Specialty Start Date End Date Tia Hernandez MD [address] [facility] [place] [address] PCP - General Family Medicine 07/18/15 Corina Jordan APRN.FLAVORING OIL FILTERER [address] [facility] [place] [address] Metal Cleaner Family Medicine 04/21/24 Will Bryan APRN.FLAVORING OIL FILTERER [address] [facility] [place] [address] Metal Cleaner Family Medicine 04/30/24 Stunner Relationship Specialty Start Date End Date Tia Hernandez MD [address] [facility] [place] [address] PCP - General Family Medicine 07/18/15 Corina Jordan APRN.FLAVORING OIL FILTERER [address] [facility] [place] [address] Metal Cleaner Family Medicine 04/21/24 Will Bryan APRN.FLAVORING OIL FILTERER [address] [facility] [place] [address] Metal Cleaner Family Medicine 04/30/24 Stunner Relationship Specialty Start Date End Date Tia Hernandez MD [address] [facility] [place] [address] PCP - General Family Medicine 07/18/15 Corina Jordan APRN.FLAVORING OIL FILTERER [address] [facility] [place] [address] Metal Cleaner Family Medicine 04/21/24 Will Bryan APRN.FLAVORING OIL FILTERER [address] [place] [address] Metal Cleaner Family Medicine 04/30/24 Stunner Relationship Specialty Start Date End Date Tia Hernandez MD [address] [place] [address] PCP - General Family Medicine 07/18/15 Corina Jordan APRN.FLAVORING OIL FILTERER [address] [place] [address] Metal Cleaner Family Medicine 04/21/24 Will Bryan APRN.FLAVORING OIL FILTERER [address] [place] [address] Metal Cleaner Family Medicine 04/30/24 Stunner Relationship Specialty Start Date End Date Tia Hernandez MD [address] [place] [address] PCP - General Family Medicine 07/18/15 Corina Jordan APRN.FLAVORING OIL FILTERER [address] [place] [address] Metal Cleaner Family Medicine 04/21/24 Will Bryan APRN.FLAVORING OIL FILTERER [address] [place] [address] Metal Cleaner Family Medicine 04/30/24 Stunner Relationship Specialty Start Date End Date Tia Hernandez MD [address] [place] [address] PCP - General Family Medicine 07/18/15 Corina Jordan APRN.FLAVORING OIL FILTERER [address] [place] [address] Metal Cleaner Family Medicine 04/21/24 Will Bryan APRN.FLAVORING OIL FILTERER [address] [facility] [place] [address] Metal Cleaner Family Medicine 04/30/24 Stunner Relationship Specialty Start Date End Date Tia Hernandez MD [address] [facility] [place] [address] PCP - General Family Medicine 07/18/15 Corina Jordan APRN.FLAVORING OIL FILTERER [address] [facility] [place] [address] Metal Cleaner Family Medicine 04/21/24 Will Bryan APRN.FLAVORING OIL FILTERER [address] [facility] [place] [address] [facility] 04/30/24 Stunner Relationship Specialty Start Date End Date Tia Hernandez MD [address] [facility] [place] [address] PCP - General Family Medicine 07/18/15 Corina Jordan BUSINESS SEGMENT MANAGER.[employer] [address] [facility] [place] [address] [facility] 04/21/24 Will Bryan BUSINESS SEGMENT MANAGER.[employer]ING OIL FILTERER [address] [facility] [place] [address] [facility] 04/30/24 Stunner Relationship Specialty Start Date End Date Tia Hernandez MD [address] [facility] [place] [address] PCP - General Family Medicine 07/18/15 Will Bryan APRN.[employer]AVORING OIL FILTERER [address] [place], [place] [id number] [facility] 04/30/24 Stunner Relationship Specialty Start Date End Date Tia Hernandez MD [address] [place], [place] [id number] PCP - General Family Medicine 07/18/15 Will Bryan APRN.FLAVORING OIL FILTERER [address] [place], [place] [address] [facility] 04/30/24 FOR RECORDS PERTAINING TO PATIENTS WHO ARE OR HAVE BEEN ENROLLED IN A CHEMICAL DEPENDENCY/SUBSTANCEABUSE PROGRAM, SOME INFORMATION MAY BE OMITTED. This clinical summary was aggregated from multiple sources. Caution should be exercised in using it in the provision of clinical care. This summary normalizes information from multiple sources, and as a consequence, information in this document may materially change the coding, format and clinical context of patient data. In addition, data may be omitted in some cases. CLINICAL DECISIONS SHOULD BE BASED ON THE PRIMARY CLINICAL RECORDS. [employer] provides no warranty or guarantee of the accuracy or completeness of information in this document.
--- NOTE | 2025-02-05 09:35 | CT_ITS ---
PROCEDURE: ABDOMEN/PELVIS W IV CONT ONLY 02/05/2025 REASON FOR EXAM: TRAUMA. PLEASE LOOK AT LUMBAR SPINE WELL TECHNIQUE: Procedure Code: [id number] Modality: CT Procedure: ABDOMEN/PELVIS W IV CONT ONLY Coronal and Sagittal reconstruction series were provided. CONTRAST: Isovue 370 VOLUME: 100 mL One or more dose reduction techniques were used (e.g., Automated exposure control, adjustment of the mA and/or kV according to patient size, use of iterative reconstruction technique. RADIATION DOSE SUMMARY: CTDlvol: 12.38 mGy DLP: 532.42 mGycm COMPARISON: None. FINDINGS: Lung bases: Clear. Liver: Unremarkable. Gallbladder: Status post cholecystectomy. No biliary dilation. Spleen: Unremarkable. Foci of calcifications from old granulomatous disease. Pancreas: Unremarkable. Adrenals: Unremarkable. Kidneys: No hydronephrosis. No nephrolithiasis. Bladder: Unremarkable. Reproductive Organs: Bowel: Colonic diverticulosis with no evidence of acute diverticulitis. No bowel wall thickening or bowel obstruction. Appendix: No evidence of acute appendicitis. Lymph nodes: No lymphadenopathy. Vasculature: Atherosclerotic calcifications. No aneurysm. Peritoneum / Retroperitoneum: No free air or free fluid. Bones: No acute bony abnormalities. Multilevel degenerate changes. CT/Abdomen/Pelvis W IV Cont ONLY IMPRESSION: A 7.3 x 5.6 x 6.2 cm left adnexal mass. Pelvic ultrasound may be performed for further evaluation. Otherwise, no acute abdominopelvic abnormalities. No acute injury to the lumba r spine. Reading Location: [facility]
--- NOTE | 2025-02-05 09:35 | CT_ITS ---
PROCEDURE: SPINE CERVICAL WITHOUT CONTRAS 02/05/2025 REASON FOR EXAM: TRAUMA TECHNIQUE: Procedure Code: CTSPC Modality: CT Procedure: SPINE CERVICAL WITHOUT CONTRAS Coronal and Sagittal reconstruction series were provided. One or more dose reduction techniques were used (e.g., Automated exposure control, adjustment of the mA and/or kV according to patient size, use of iterative reconstruction technique. RADIATION DOSE SUMMARY: CTDlvol: 17.81 mGy DLP: 1209.28 mGycm COMPARISON: None. FINDINGS: Alignment: Retrolisthesis C3 on C4 by 1 mm. Vertebrae: No acute bony abnormalities. Status post ACDF C4, C5 and C6. Soft Tissues: No soft tissue abnormalities. Disc levels: Degenerate changes predominantly at C3-C4 where there is disc space narrowing, uncovertebral hypertrophy, severe bilateral foramina stenosis and moderate canal stenosis. CT/Spine Cervical without Contras IMPRESSION: No acute injury to the cervical spine. Reading Location: [id number]
[2025-02-05 09:46] LABS: AST(SGOT) 20 U/L (<=31); Alanine Aminotransfer ALT/SGPT 23 U/L (<=34); Albumin, Serum 4.3 g/dL (3.4-4.8); Alkaline Phosphatase 48 U/L (35-104); Anion Gap 10 (5-15); BUN 16 mg/dL (4-19); BUN/Creat Ratio 23.5 RATIO (10-20); Calcium,Total 8.6 mg/dL (7.6-11.0); Carbon Dioxide 24.0 mmol/L (21.0-32.0); Chloride 104 mmol/L (98-108); Estimated Creatinine Clearance 84.85 ml/min (50-250); Globulin 2.6 g/dL (2.2-4.2); Glucose 118 mg/dL (70-99); Lipase 44 U/L (13-75); Potassium 4.6 mmol/L (3.3-5.1)
[2025-02-05 10:50] VITALS: BP 134/78; PULSE 87; RESP 15; O2SAT 100
[2025-02-05 10:51] VITALS: BP 134/78; PULSE 87; RESP 15; TEMP 36.7; O2SAT 100
== END 2025-02-05 10:52 | disposition home or self-care (01) ==
PROVIDERS: Emergency Provider Surgery; PCP Family Medicine; Visit Provider Surgery
DX: S16.1XXA Strain of muscle, fascia and tendon at neck level, initial encounter (principal); R10.9 Unspecified abdominal pain; S39.012A Strain of muscle, fascia and tendon of lower back, initial encounter; I10 Essential (primary) hypertension; E03.9 Hypothyroidism, unspecified; K21.9 Gastro-esophageal reflux disease without esophagitis; Z79.899 Other long term (current) drug therapy; Z79.890 Hormone replacement therapy; V43.52XA Car driver injured in collision with other type car in traffic accident, initial encounter; N83.202 Unspecified ovarian cyst, left side
CPT/HCPCS: 70450; 72125; 74177; 80053; 83690; 85025; 96361; 96374; 96375; 99285; Q9967; A4216; J2405